=== PATIENT | female | born 1960 | race African-American/Black ===

== ENCOUNTER 2018-08-20 10:02 | Inpatient (IN) ==
[2018-08-20] MEDS ORDERED: ALBUTEROL/IPRATROPIUM 3 ML NEB RESP TX STA (11:05)
[2018-08-20 11:22] LABS: Basophils % 0.2 % (0.0-0.8); Hematocrit 32.2 VOL% (35.7-47.0); Hemoglobin 9.8 GM/DL (12.0-16.0); Immature Granulocytes % 2.5 %; Immature Granulocytes Absolute 0.26 #; Lymphocytes # 0.8 10*3/uL (1.4-4.0); Lymphocytes % 7.4 % (21.3-54.2); Mean Corpuscular HGB Conc 30.4 GM/DL (32-36); Mean Corpuscular Volume 76.5 FL (87-102); Monocytes % 1.1 % (1.7-12.7); Neutrophils % 88.8 % (38.7-73.9); Red Blood Count 4.21 MC/CUMM (3.8-5.5); Red Cell Distribution Width 18.3 % (9.3-17.3); White Blood Count 10.5 T/CUMM (4-12)
[2018-08-20 11:25] LABS: Platelet Count 203 T/CUMM (130-400)
[2018-08-20 11:40] LABS: Osmolality,Calculated 291.7 MOS/KG (273-304)
[2018-08-20 11:41] LABS: Hypochromasia 1+; Microcytosis 1+; Platelet Estimate Adequate
[2018-08-20] MEDS ORDERED: ONDANSETRON 4 MG/2 ML VIAL IV PRN (13:04)
[2018-08-20] MEDS ORDERED: ACETAMINOPHEN 325 MG TABLET PO PRN (13:04)
[2018-08-20] MEDS ORDERED: VANCOMYCIN INJ 1,750 MG in SODIUM CHLORIDE 0.9% 250 ML IV SCH (13:30)
[2018-08-20] MEDS: PANTOPRAZOLE 40 MG TABLET PO SCH (14:05)
[2018-08-20] MEDS ORDERED: CEFEPIME 1,000 MG VIAL ONE (14:06)
[2018-08-20] MEDS: CEFEPIME 1,000 MG in SYRINGE 1 EACH IV SCH (14:15)
[2018-08-20] MEDS ORDERED: VANCOMYCIN INJ 1,500 MG in SODIUM CHLORIDE 0.9% 500 ML IV PRN (14:46)
[2018-08-20] MEDS ORDERED: VANCOMYCIN INJ 2,000 MG in SODIUM CHLORIDE 0.9% 500 ML IV ONE (15:30)
[2018-08-20] MEDS: methylPREDNISolone SOD SUC 40 MG/1 ML VIAL IV SCH ×2 (15:44→22:35)
[2018-08-20] MEDS: HEPARIN 5,000 UNIT/1 ML VIAL SUBCUT SCH ×2 (15:50→22:30)
[2018-08-20] MEDS: ALBUTEROL/IPRATROPIUM 3 ML NEB RESP TX SCH (18:47)
[2018-08-21] MEDS: ALBUTEROL/IPRATROPIUM 3 ML NEB RESP TX SCH ×4 (00:10→19:09)
[2018-08-21] MEDS: methylPREDNISolone SOD SUC 40 MG/1 ML VIAL IV SCH ×3 (05:20→21:25)
[2018-08-21] MEDS: HEPARIN 5,000 UNIT/1 ML VIAL SUBCUT SCH ×2 (05:23→14:44)
[2018-08-21 05:54] LABS: Basophils % 0.2 % (0.0-0.8); Hematocrit 26.9 VOL% (35.7-47.0); Hemoglobin 8.5 GM/DL (12.0-16.0); Immature Granulocytes % 2.8 %; Immature Granulocytes Absolute 0.38 #; Lymphocytes % 7.2 % (21.3-54.2); Mean Corpuscular HGB Conc 31.6 GM/DL (32-36); Mean Corpuscular Volume 74.7 FL (87-102); Monocytes % 3.3 % (1.7-12.7); Neutrophils % 86.5 % (38.7-73.9); Platelet Count 173 T/CUMM (130-400); Red Cell Distribution Width 18.3 % (9.3-17.3); White Blood Count 13.8 T/CUMM (4-12)
[2018-08-21 06:11] LABS: Albumin 2.3 G/DL (3.4-5.0); Bilirubin,Total 0.8 MG/DL (0.2-1.0); Calcium 9.7 MG/DL (8.5-10.1); Osmolality,Calculated 296.7 MOS/KG (273-304); Risk Ratio 3.52; Total Protein 6.7 G/DL (6.4-8.3); VLDL CHOLESTEROL 14.2 MG/DL
[2018-08-21] MEDS: PANTOPRAZOLE 40 MG TABLET PO SCH (08:06)
[2018-08-21] MEDS: CEFEPIME 1,000 MG in SYRINGE 1 EACH IV SCH (14:44)
[2018-08-22] MEDS: ALBUTEROL/IPRATROPIUM 3 ML NEB RESP TX SCH ×4 (00:37→19:34)
[2018-08-22 04:42] LABS: Basophils % 0.1 % (0.0-0.8); Hematocrit 27.4 VOL% (35.7-47.0); Hemoglobin 8.8 GM/DL (12.0-16.0); Immature Granulocytes % 2.4 %; Immature Granulocytes Absolute 0.41 #; Lymphocytes # 0.6 10*3/uL (1.4-4.0); Lymphocytes % 3.8 % (21.3-54.2); Mean Corpuscular HGB Conc 32.1 GM/DL (32-36); Mean Corpuscular Volume 74.9 FL (87-102); Monocytes % 3.6 % (1.7-12.7); Neutrophils % 90.1 % (38.7-73.9); Platelet Count 189 T/CUMM (130-400); Red Blood Count 3.66 MC/CUMM (3.8-5.5); Red Cell Distribution Width 18.5 % (9.3-17.3); White Blood Count 16.9 T/CUMM (4-12)
[2018-08-22 04:58] LABS: Albumin 2.4 G/DL (3.4-5.0); Bilirubin,Total 0.5 MG/DL (0.2-1.0); Calcium 9.8 MG/DL (8.5-10.1); Osmolality,Calculated 299.8 MOS/KG (273-304); Total Protein 6.7 G/DL (6.4-8.3)
[2018-08-22] MEDS: methylPREDNISolone SOD SUC 40 MG/1 ML VIAL IV SCH ×2 (05:41→13:15)
[2018-08-22 05:42] LABS: Band Neutrophils 2 % (0-10); Hypochromasia 1+; Lymphocytes 5 % (20-55); Microcytosis 1+; Myelocytes 1 %; Ovalocytes Slight; Segmented Neutrophils 88 % (50-85); Target Cells Slight; Total Cells Counted 100
[2018-08-22 05:43] LABS: Platelet Estimate Adequate
[2018-08-22] MEDS: PANTOPRAZOLE 40 MG TABLET PO SCH ×2 (07:33→08:24)
[2018-08-22] MEDS ORDERED: SODIUM CHLORIDE 0.9% 1,000 ML IV PRN ×3 (09:36→09:48)
[2018-08-22 10:13] LABS: Total Protein 6.5 G/DL (6.4-8.3)
[2018-08-22] MEDS ORDERED: VANCOMYCIN INJ 1,000 MG in SODIUM CHLORIDE 0.9% 250 ML IV PRN (12:10)
[2018-08-22] MEDS: CEFEPIME 1,000 MG in SYRINGE 1 EACH IV SCH ×2 (13:15→13:43)
[2018-08-22] MEDS: IRON (CARBONYL)/VIT C/B12/FA TABLET PO SCH (13:16)
[2018-08-22] MEDS ORDERED: VANCOMYCIN INJ 1,000 MG in SODIUM CHLORIDE 0.9% 250 ML IV ONE (15:00)
[2018-08-23] MEDS: ALBUTEROL/IPRATROPIUM 3 ML NEB RESP TX SCH ×5 (00:27→23:53)
[2018-08-23 05:55] LABS: Basophils % 0.1 % (0.0-0.8); Hematocrit 28.8 VOL% (35.7-47.0); Hemoglobin 9.1 GM/DL (12.0-16.0); Immature Granulocytes % 1.9 %; Immature Granulocytes Absolute 0.34 #; Lymphocytes # 1.3 10*3/uL (1.4-4.0); Lymphocytes % 7.3 % (21.3-54.2); Mean Corpuscular HGB Conc 31.6 GM/DL (32-36); Mean Corpuscular Volume 75.2 FL (87-102); Monocytes % 9.9 % (1.7-12.7); NRBC # 0.02 10*3/uL; Neutrophils % 80.8 % (38.7-73.9); Platelet Count 237 T/CUMM (130-400); Red Blood Count 3.83 MC/CUMM (3.8-5.5); Red Cell Distribution Width 18.7 % (9.3-17.3); White Blood Count 17.8 T/CUMM (4-12)
[2018-08-23 06:34] LABS: Albumin 2.4 G/DL (3.4-5.0); Bilirubin,Total 0.7 MG/DL (0.2-1.0); Calcium 10.2 MG/DL (8.5-10.1); Osmolality,Calculated 301.5 MOS/KG (273-304); Total Protein 6.9 G/DL (6.4-8.3)
[2018-08-23 07:11] LABS: Hypochromasia 1+; Microcytosis 1+; Target Cells Slight
[2018-08-23 07:12] LABS: Ovalocytes Slight; Platelet Estimate Normal
[2018-08-23 07:27] LABS: Immunoglobulin A (Chem) 185 MG/DL (70-400); Immunoglobulin G (Chem) 1400 MG/DL (700-1600); Immunoglobulin M (Chem) 61 MG/DL (40-230); Total Protein (Chem) 6.5 G/DL (6.4-8.3)
[2018-08-23] MEDS ORDERED: BORTEZOMIB SUBCUT ONE ×2 (09:00→11:30)
[2018-08-23] MEDS ORDERED: EPOETIN ALFA 10,000 UNIT/1 ML VIAL SUBCUT SCH (09:00)
[2018-08-23 09:14] LABS: Albumin (SPE) 3.1 G/DL (3.2-5.3); Albumin (SPE) Rel % 48.4 %; Alpha 1 (SPE) 0.2 G/DL (0.1-0.4); Alpha 1 (SPE) Rel % 2.8 %; Alpha 2 (SPE) Rel % 15.3 %; Beta (SPE) Rel % 23.4 %; Gamma (SPE) 0.7 G/DL (0.7-1.7); Gamma (SPE) Rel % 10.1 %
[2018-08-23 09:15] LABS: Beta (SPE) 1.5 G/DL (0.5-1.1)
[2018-08-23] MEDS: PANTOPRAZOLE 40 MG TABLET PO SCH (09:37)
[2018-08-23] MEDS: predniSONE 20 MG TABLET PO SCH (09:37)
[2018-08-23] MEDS: IRON (CARBONYL)/VIT C/B12/FA TABLET PO SCH (09:37)
[2018-08-23 09:44] LABS: Immuno Free Light Chain Lambda 8.08 MG/DL (0.57-2.63); Immuno Free Light Chain Ratio 2.04 MG/DL (0.26-1.65)
[2018-08-23] MEDS ORDERED: POTASSIUM CHLORIDE 20 MEQ TABLET PO ONE (10:27)
[2018-08-24] MEDS: ALBUTEROL/IPRATROPIUM 3 ML NEB RESP TX SCH (07:18)
[2018-08-24 07:45] LABS: Basophils % 0.2 % (0.0-0.8); Eosinophils % 0.1 % (0.00-10.9); Hematocrit 33.7 VOL% (35.7-47.0); Hemoglobin 10.3 GM/DL (12.0-16.0); Immature Granulocytes % 1.9 %; Immature Granulocytes Absolute 0.33 #; Lymphocytes # 1.7 10*3/uL (1.4-4.0); Lymphocytes % 9.6 % (21.3-54.2); Mean Corpuscular HGB Conc 30.6 GM/DL (32-36); Mean Corpuscular Volume 75.7 FL (87-102); Monocytes % 12.9 % (1.7-12.7); NRBC # 0.02 10*3/uL; Neutrophils % 75.3 % (38.7-73.9); Platelet Count 241 T/CUMM (130-400); Red Blood Count 4.45 MC/CUMM (3.8-5.5); Red Cell Distribution Width 19.1 % (9.3-17.3); White Blood Count 17.5 T/CUMM (4-12)
[2018-08-24 07:59] LABS: Calcium 10.2 MG/DL (8.5-10.1)
[2018-08-24 08:02] LABS: Platelet Estimate Normal
[2018-08-24 08:03] LABS: Anisocytosis 1+; Macrocytosis 1+; Poikilocytosis Slight
[2018-08-24 08:04] LABS: Tear Drop Cells Few
[2018-08-24] MEDS: predniSONE 20 MG TABLET PO SCH (09:12)
[2018-08-24] MEDS: IRON (CARBONYL)/VIT C/B12/FA TABLET PO SCH (09:12)
[2018-08-24] MEDS: PANTOPRAZOLE 40 MG TABLET PO SCH (09:12)
[2018-08-24 11:09] VITALS: BP 113/71
== END 2018-08-24 12:10 | disposition home or self-care (01) | DRG 190 ==
LOC: N.ED 10:02 → SUATTDRO 12:10 → N.EDINP 12:10 → N.5E 14:27 → N.2E 08-23 13:55 → N.5E 08-23 13:58
PROVIDERS: ADMIT Internal Medicine; ATTEND Internal Medicine

== ENCOUNTER 2018-10-23 16:06 | Inpatient (IN) ==
[2018-10-23] MEDS ORDERED: KETOROLAC 30 MG/1 ML VIAL IV STA (16:33)
[2018-10-23] MEDS ORDERED: SODIUM CHLORIDE 0.9% 1,000 ML IV STA (16:33)
[2018-10-23] MEDS ORDERED: ONDANSETRON 4 MG/2 ML VIAL IV STA (16:33)
[2018-10-23] MEDS ORDERED: PIPERACILLIN/TAZOBACTAM 3,375 MG in SODIUM CHLORIDE 0.9% 100 ML IV STA (16:34)
[2018-10-23 17:52] LABS: Basophils % 0.2 % (0.0-0.8); Eosinophils % 0.1 % (0.00-10.9); Hematocrit 24.4 VOL% (35.7-47.0); Hemoglobin 7.4 GM/DL (12.0-16.0); Immature Granulocytes % 1.2 %; Immature Granulocytes Absolute 0.11 #; Lymphocytes # 2.1 10*3/uL (1.4-4.0); Lymphocytes % 22.7 % (21.3-54.2); Mean Corpuscular HGB Conc 30.3 GM/DL (32-36); Mean Corpuscular Volume 80.5 FL (87-102); Mean Platelet Volume 12.6 FL (9.6-12.0); Monocytes % 15.7 % (1.7-12.7); Neutrophils % 60.1 % (38.7-73.9); Platelet Count 172 T/CUMM (130-400); Red Blood Count 3.03 MC/CUMM (3.8-5.5); Red Cell Distribution Width 19.4 % (9.3-17.3); White Blood Count 9.3 T/CUMM (4-12)
[2018-10-23 18:03] LABS: PT Patient Result 10.6 SECS; Partial Thromboplastin Time 22.4 SECS (0-40)
[2018-10-23 18:13] LABS: Lymphocytes 27 % (20-55); Microcytosis 1+; Platelet Estimate Adequate; Segmented Neutrophils 63 % (50-85); Total Cells Counted 100
[2018-10-23 18:14] LABS: Hypochromasia Slight
[2018-10-23 18:21] LABS: Alanine Aminotransferase 20 U/L (13-56); Albumin 2.5 G/DL (3.4-5.0); Alkaline Phosphatase 50 U/L (45-117); Amylase 190 U/L (25-115); Aspartate Amino Transferase 26 U/L (0-37); Blood Urea Nitrogen 38 MG/DL (7-18); Calcium 8.5 MG/DL (8.5-10.1); Glucose 99 MG/DL (74-106); Osmolality,Calculated 289.3 MOS/KG (273-304); Total Protein 6.2 G/DL (6.4-8.3)
[2018-10-23] MEDS ORDERED: POTASSIUM CHLORIDE 20 MEQ TABLET PO STA (18:57)
[2018-10-23] MEDS ORDERED: ONDANSETRON 4 MG/2 ML VIAL IV PRN (19:42)
[2018-10-23] MEDS ORDERED: ACETAMINOPHEN 325 MG TABLET PO PRN (19:42)
[2018-10-23] MEDS ORDERED: ALBUTEROL/IPRATROPIUM 3 ML NEB RESP TX PRN (19:53)
[2018-10-23] MEDS ORDERED: POTASSIUM CHLORIDE 20 MEQ TABLET PO ONE (20:00)
[2018-10-23] MEDS ORDERED: SODIUM CHLORIDE 0.9% 1,000 ML IV PRN (20:03)
[2018-10-24 03:25] LABS: Osmolality,Calculated 290.3 MOS/KG (273-304); Risk Ratio 4.24; Thyroid Stimulating Hormone 2.77 uIU/ml (0.358-3.74)
[2018-10-24 05:46] LABS: Basophils % 0.3 % (0.0-0.8); Eosinophils % 0.3 % (0.00-10.9); Hematocrit 27.9 VOL% (35.7-47.0); Hemoglobin 8.5 GM/DL (12.0-16.0); Immature Granulocytes % 1.3 %; Immature Granulocytes Absolute 0.12 #; Lymphocytes # 2.7 10*3/uL (1.4-4.0); Lymphocytes % 29.6 % (21.3-54.2); Mean Corpuscular HGB Conc 30.5 GM/DL (32-36); Mean Corpuscular Volume 81.3 FL (87-102); Mean Platelet Volume 12.2 FL (9.6-12.0); Monocytes % 14.7 % (1.7-12.7); Neutrophils % 53.8 % (38.7-73.9); Platelet Count 157 T/CUMM (130-400); Red Blood Count 3.43 MC/CUMM (3.8-5.5); Red Cell Distribution Width 18.6 % (9.3-17.3)
[2018-10-24] MEDS: PIPERACILLIN/TAZOBACTAM 3,375 MG in SODIUM CHLORIDE 0.9% 100 ML IV SCH ×2 (06:07→20:52)
[2018-10-24] MEDS: PANTOPRAZOLE 40 MG TABLET PO SCH (09:08)
[2018-10-24 09:22] LABS: Albumin 2.1 G/DL (3.4-5.0); Bilirubin,Direct 0.12 MG/DL (0.0-0.20); Bilirubin,Indirect 0.4 MG/DL (0.0-1.0); Bilirubin,Total 0.5 MG/DL (0.2-1.0); Total Protein 6.1 G/DL (6.4-8.3)
[2018-10-24] MEDS ORDERED: HEPARIN 5,000 UNIT/1 ML VIAL ONE (14:06)
[2018-10-24] MEDS ORDERED: BUPIVACAINE MPF 0.25% /EPI 30 ML VIAL ONE (14:06)
[2018-10-24] MEDS ORDERED: TISSUE ADHESIVE 1 EACH APPLICATOR TOP ONE (14:06)
[2018-10-24] MEDS ORDERED: LIDOCAINE 1% 20 ML VIAL ONE (14:07)
[2018-10-24] MEDS ORDERED: ONDANSETRON 4 MG/2 ML VIAL ONE (18:25)
[2018-10-24] MEDS ORDERED: PROPOFOL 200 MG/20 ML VIAL IV ONE (18:25)
[2018-10-24] MEDS ORDERED: ETOMIDATE 40 MG/20 ML VIAL IV ONE (18:25)
[2018-10-24] MEDS ORDERED: SEVOFLURANE 1 UNIT/15 MINUTE INH ONE (18:25)
[2018-10-24] MEDS ORDERED: GLYCOPYRROLATE 0.4 MG/2 ML VIAL ONE (18:25)
[2018-10-24] MEDS ORDERED: fentaNYL 100 MCG/2 ML VIAL ONE (18:25)
[2018-10-24] MEDS ORDERED: ROCURONIUM 100 MG/10 ML VIAL IV ONE (18:26)
[2018-10-24] MEDS ORDERED: NEOSTIGMINE 10 MG/10 ML VIAL ONE (18:26)
[2018-10-24] MEDS: HYDROmorphone 2 MG/1 ML VIAL IV PRN (19:04)
[2018-10-25 05:34] LABS: Basophils # 0.1 10*3/uL (0.0-0.2); Basophils % 0.6 % (0.0-0.8); Eosinophils % 0.2 % (0.00-10.9); Hematocrit 26.2 VOL% (35.7-47.0); Immature Granulocytes % 1.3 %; Immature Granulocytes Absolute 0.11 #; Lymphocytes # 1.9 10*3/uL (1.4-4.0); Lymphocytes % 22.1 % (21.3-54.2); Mean Corpuscular HGB Conc 30.5 GM/DL (32-36); Mean Corpuscular Volume 81.6 FL (87-102); Mean Platelet Volume 12.6 FL (9.6-12.0); Monocytes % 14.3 % (1.7-12.7); Neutrophils % 61.5 % (38.7-73.9); Platelet Count 151 T/CUMM (130-400); Red Blood Count 3.21 MC/CUMM (3.8-5.5); Red Cell Distribution Width 18.6 % (9.3-17.3); White Blood Count 8.4 T/CUMM (4-12)
[2018-10-25 05:57] LABS: Bilirubin,Total 0.7 MG/DL (0.2-1.0); Calcium 8.2 MG/DL (8.5-10.1); Osmolality,Calculated 293.1 MOS/KG (273-304); Total Protein 5.9 G/DL (6.4-8.3)
[2018-10-25] MEDS ORDERED: POTASSIUM CHLORIDE 20 MEQ TABLET PO ONE (07:26)
[2018-10-25] MEDS: HYDROmorphone 2 MG/1 ML VIAL IV PRN (08:16)
[2018-10-25] MEDS: PANTOPRAZOLE 40 MG TABLET PO SCH (08:20)
[2018-10-25] MEDS: PIPERACILLIN/TAZOBACTAM 3,375 MG in SODIUM CHLORIDE 0.9% 100 ML IV SCH ×2 (08:23→21:08)
[2018-10-26] MEDS: HYDROmorphone 2 MG/1 ML VIAL IV PRN ×2 (02:52→11:22)
[2018-10-26] MEDS: PANTOPRAZOLE 40 MG TABLET PO SCH (08:38)
[2018-10-26] MEDS: PIPERACILLIN/TAZOBACTAM 3,375 MG in SODIUM CHLORIDE 0.9% 100 ML IV SCH ×2 (08:44→21:14)
[2018-10-27] MEDS: PANTOPRAZOLE 40 MG TABLET PO SCH (10:27)
[2018-10-27] MEDS: PIPERACILLIN/TAZOBACTAM 3,375 MG in SODIUM CHLORIDE 0.9% 100 ML IV SCH (10:29)
[2018-10-27 17:04] VITALS: BP 124/67
== END 2018-10-27 17:50 | disposition home or self-care (01) | DRG 417 ==
LOC: EDBD → EDUNIT# → N.ED 16:06 → N.EDINP 19:42 → N.3E 20:34
PROVIDERS: ADMIT Internal Medicine Cardiovascular Disease; ATTEND Internal Medicine Cardiovascular Disease
PROC: LAPCHOL (2018-10-24 16:35)

== ENCOUNTER 2018-11-07 14:38 | Inpatient (IN) ==
[~2018-11-07 14:38] MED LIST: LIDOCAINE 2% 5 ML VIAL ONE; PHENYLEPHRINE 1 MG/10 ML SYRINGE IV ONE; PROPOFOL 200 MG/20 ML VIAL IV ONE
[2018-11-07] MEDS ORDERED: SODIUM CHLORIDE 0.9% 1,000 ML IV STA (15:35)
[2018-11-07 16:04] LABS: Alanine Aminotransferase 17 U/L (13-56); Albumin 2.3 G/DL (3.4-5.0); Alkaline Phosphatase 85 U/L (45-117); Aspartate Amino Transferase 23 U/L (0-37); Blood Urea Nitrogen 23 MG/DL (7-18); Calcium 9.5 MG/DL (8.5-10.1); Glucose 209 MG/DL (74-106); Osmolality,Calculated 284.7 MOS/KG (273-304); Total Protein 8.2 G/DL (6.4-8.3); Troponin I 0.159 NG/ML (0.00-0.045)
[2018-11-07 16:08] LABS: Basophils # 0.1 10*3/uL (0.0-0.2); Basophils % 0.5 % (0.0-0.8); Eosinophils % 0.3 % (0.00-10.9); Hematocrit 32.6 VOL% (35.7-47.0); Hemoglobin 9.7 GM/DL (12.0-16.0); Immature Granulocytes % 0.6 %; Immature Granulocytes Absolute 0.08 #; Lymphocytes # 3.4 10*3/uL (1.4-4.0); Lymphocytes % 23.7 % (21.3-54.2); Mean Corpuscular HGB Conc 29.8 GM/DL (32-36); Mean Corpuscular Volume 82.5 FL (87-102); Mean Platelet Volume 11.5 FL (9.6-12.0); Monocytes % 3.4 % (1.7-12.7); NRBC # 0.03 10*3/uL; Neutrophils % 71.5 % (38.7-73.9); Platelet Count 417 T/CUMM (130-400); Red Blood Count 3.95 MC/CUMM (3.8-5.5); Red Cell Distribution Width 17.9 % (9.3-17.3); White Blood Count 14.5 T/CUMM (4-12)
[2018-11-07 16:21] LABS: PT Patient Result 11.3 SECS (9.6-12.2)
[2018-11-07] MEDS ORDERED: PIPERACILLIN/TAZOBACTAM 3,375 MG in SODIUM CHLORIDE 0.9% 100 ML IV STA ×2 (16:30→16:34)
[2018-11-07] MEDS ORDERED: NOREPINEPHRINE 8 MG in SODIUM CHLORIDE 0.9% 242 ML IV PRN (16:30)
[2018-11-07] MEDS ORDERED: NOREPINEPHRINE 4 MG/4 ML VIAL IV ONE ×2 (16:31→16:34)
[2018-11-07] MEDS ORDERED: SODIUM CHLORIDE 0.9% 2,700 ML IV ONE (17:07)
[2018-11-07] MEDS ORDERED: MORPHINE 4 MG/1 ML VIAL IV PRN (17:12)
[2018-11-07] MEDS ORDERED: DOPamine 800 MG/250 ML PREMIX IV PRN (17:12)
[2018-11-07] MEDS ORDERED: ALBUTEROL/IPRATROPIUM 3 ML NEB RESP TX PRN (17:12)
[2018-11-07] MEDS ORDERED: ONDANSETRON 4 MG/2 ML VIAL IV PRN (17:12)
[2018-11-07] MEDS ORDERED: ALBUTEROL 2.5 MG/3 ML NEB RESP TX PRN (17:12)
[2018-11-07 17:30] LABS: ABG Base Excess -4.2 MMOL/L (-2.5-2.5); ABG Oxygen Saturation 98.6 % (95-100); ABG PCO2 35.2 MM HG (35-48); ABG PH 7.373 (7.35-7.45); ABG TCO2 18.8 MMOL/L (23-27); Allen Test Positive
[2018-11-07] MEDS ORDERED: SODIUM CHLORIDE 0.9% 1,000 ML IV SCH (17:30)
[2018-11-07] MEDS ORDERED: VANCOMYCIN INJ 2,250 MG in SODIUM CHLORIDE 0.9% 500 ML IV ONE (18:00)
[2018-11-07] MEDS ORDERED: VANCOMYCIN INJ 750 MG in SODIUM CHLORIDE 0.9% 250 ML IV PRN (18:00)
[2018-11-07] MEDS: POTASSIUM CHLORIDE 20 MEQ/15 ML UDCUP PO SCH ×2 (19:08→22:11)
[2018-11-07] MEDS: CALCITRIOL 0.25 MCG CAPSULE PO SCH (20:47)
[2018-11-07] MEDS: DEXAMETHASONE 4 MG/1 ML VIAL IV SCH (20:48)
[2018-11-07] MEDS ORDERED: POMALYST 3 MG PO SCH (21:00)
[2018-11-07] MEDS ORDERED: FAMOTIDINE 20 MG/2 ML VIAL IV SCH (21:00)
[2018-11-08] MEDS: DEXAMETHASONE 4 MG/1 ML VIAL IV SCH ×3 (02:11→21:42)
[2018-11-08] MEDS: POTASSIUM CHLORIDE 20 MEQ/15 ML UDCUP PO SCH (02:11)
[2018-11-08 03:25] LABS: Basophils % 0.2 % (0.0-0.8); Hematocrit 25.7 VOL% (35.7-47.0); Hemoglobin 7.8 GM/DL (12.0-16.0); Immature Granulocytes % 0.6 %; Immature Granulocytes Absolute 0.12 #; Lymphocytes # 1.3 10*3/uL (1.4-4.0); Lymphocytes % 6.8 % (21.3-54.2); Mean Corpuscular HGB Conc 30.4 GM/DL (32-36); Mean Corpuscular Volume 81.1 FL (87-102); Mean Platelet Volume 11.7 FL (9.6-12.0); Monocytes % 1.4 % (1.7-12.7); Platelet Count 286 T/CUMM (130-400); Red Blood Count 3.17 MC/CUMM (3.8-5.5); Red Cell Distribution Width 17.9 % (9.3-17.3); White Blood Count 18.5 T/CUMM (4-12)
[2018-11-08 03:59] LABS: Albumin 1.8 G/DL (3.4-5.0); Bilirubin,Total 0.5 MG/DL (0.2-1.0); Calcium 7.7 MG/DL (8.5-10.1); Osmolality,Calculated 284.3 MOS/KG (273-304); Risk Ratio 4.79; Thyroid Stimulating Hormone 3.63 uIU/ml (0.358-3.74); Total Protein 6.2 G/DL (6.4-8.3)
[2018-11-08 04:16] LABS: Lymphocytes 7 % (20-55); Platelet Estimate Normal; Segmented Neutrophils 93 % (50-85); Total Cells Counted 100
[2018-11-08 04:29] LABS: ABG Base Excess -4.5 MMOL/L (-2.5-2.5); ABG HCO3 20.6 MMOL/L (20-26); ABG Oxygen Saturation 95.7 % (95-100); ABG PCO2 37.4 MM HG (35-48); ABG PH 7.358 (7.35-7.45); ABG PO2 85.8 MM HG (80-95); ABG TCO2 21.7 MMOL/L (23-27); Allen Test Positive
[2018-11-08] MEDS: PANTOPRAZOLE 40 MG TABLET PO SCH (12:10)
[2018-11-08 21:04] LABS: Neutrophils,Peritoneal Fluid 42 %; RBC,Peritoneal Fluid < 1 T/CUMM
[2018-11-08] MEDS: CALCITRIOL 0.25 MCG CAPSULE PO SCH (21:42)
[2018-11-09 05:28] LABS: Basophils % 0.1 % (0.0-0.8); Hematocrit 23.4 VOL% (35.7-47.0); Hemoglobin 7.3 GM/DL (12.0-16.0); Immature Granulocytes % 0.5 %; Immature Granulocytes Absolute 0.06 #; Lymphocytes # 1.4 10*3/uL (1.4-4.0); Lymphocytes % 11.1 % (21.3-54.2); Mean Corpuscular HGB Conc 31.2 GM/DL (32-36); Mean Corpuscular Volume 79.9 FL (87-102); Mean Platelet Volume 11.6 FL (9.6-12.0); Monocytes % 4.5 % (1.7-12.7); Neutrophils % 83.8 % (38.7-73.9); Platelet Count 224 T/CUMM (130-400); Red Blood Count 2.93 MC/CUMM (3.8-5.5); Red Cell Distribution Width 17.6 % (9.3-17.3); White Blood Count 12.8 T/CUMM (4-12)
[2018-11-09 05:57] LABS: Albumin 1.8 G/DL (3.4-5.0); Bilirubin,Total 0.6 MG/DL (0.2-1.0); Calcium 8.2 MG/DL (8.5-10.1); Total Protein 5.9 G/DL (6.4-8.3)
[2018-11-09] MEDS: PANTOPRAZOLE 40 MG TABLET PO SCH (08:38)
[2018-11-09] MEDS: DEXAMETHASONE 4 MG/1 ML VIAL IV SCH ×2 (08:38→21:23)
[2018-11-09] MEDS: CALCITRIOL 0.25 MCG CAPSULE PO SCH (21:23)
[2018-11-10 05:27] LABS: Basophils % 0.1 % (0.0-0.8); Hemoglobin 8.6 GM/DL (12.0-16.0); Immature Granulocytes % 0.8 %; Immature Granulocytes Absolute 0.07 #; Lymphocytes # 0.9 10*3/uL (1.4-4.0); Lymphocytes % 10.3 % (21.3-54.2); Mean Corpuscular HGB Conc 31.9 GM/DL (32-36); Mean Corpuscular Volume 78.3 FL (87-102); Mean Platelet Volume 13.2 FL (9.6-12.0); Monocytes % 4.2 % (1.7-12.7); NRBC # 0.02 10*3/uL; Neutrophils % 84.6 % (38.7-73.9); Platelet Count 173 T/CUMM (130-400); Red Blood Count 3.45 MC/CUMM (3.8-5.5); Red Cell Distribution Width 17.6 % (9.3-17.3); White Blood Count 8.9 T/CUMM (4-12)
[2018-11-10 05:43] LABS: Albumin 1.8 G/DL (3.4-5.0); Bilirubin,Total 0.4 MG/DL (0.2-1.0); Calcium 8.1 MG/DL (8.5-10.1); Total Protein 5.8 G/DL (6.4-8.3)
[2018-11-10] MEDS ORDERED: MAGNESIUM SULF RIDER 4 GM in PREMIX 1 EACH IV PRN (08:02)
[2018-11-10] MEDS ORDERED: MAGNESIUM SULF RIDER 2 GM in PREMIX 1 EACH IV PRN (08:02)
[2018-11-10] MEDS: PANTOPRAZOLE 40 MG TABLET PO SCH (08:54)
[2018-11-10] MEDS: DEXAMETHASONE 4 MG/1 ML VIAL IV SCH (08:54)
[2018-11-10 12:18] VITALS: BP 114/78
== END 2018-11-10 12:58 | disposition home or self-care (01) | DRG 871 ==
LOC: N.ED 14:38 → SUATTDRO 17:12 → N.EDINP 17:12 → N.CC 18:03 → N.5E 11-08 14:07
PROVIDERS: ADMIT Internal Medicine; ATTEND Internal Medicine

== ENCOUNTER 2018-12-31 09:22 | Inpatient (IN) ==
[2018-12-31 10:02] LABS: Eosinophils % 0.1 % (0.00-10.9); Hematocrit 27.4 VOL% (35.7-47.0); Immature Granulocytes % 0.5 %; Immature Granulocytes Absolute 0.04 #; Lymphocytes # 1.4 10*3/uL (1.4-4.0); Lymphocytes % 16.4 % (21.3-54.2); Mean Corpuscular HGB Conc 32.8 GM/DL (32-36); Mean Corpuscular Volume 79.4 FL (87-102); Mean Platelet Volume 13.1 FL (9.6-12.0); Platelet Count 257 T/CUMM (130-400); Red Blood Count 3.45 MC/CUMM (3.8-5.5); White Blood Count 8.5 T/CUMM (4-12)
[2018-12-31 10:31] LABS: Alanine Aminotransferase 30 U/L (13-56); Albumin 2.3 G/DL (3.4-5.0); Alkaline Phosphatase 45 U/L (45-117); Aspartate Amino Transferase 32 U/L (0-37); Blood Urea Nitrogen 24 MG/DL (7-18); Calcium 8.9 MG/DL (8.5-10.1); Estimated Glom Filtration Rate 3 ML/MIN; Glucose 119 MG/DL (74-106); Osmolality,Calculated 272.2 MOS/KG (273-304); Total Protein 6.4 G/DL (6.4-8.3)
[2018-12-31] MEDS ORDERED: ALUM/MAG/SIMETH/LIDO VISC 1:1 30 ML BOTTLE PO ONE (11:06)
[2018-12-31] MEDS ORDERED: ALUM/MAG/SIMETH/LIDO VISC 1:1 30 ML BOTTLE PO STA (11:09)
[2018-12-31 14:17] LABS: Thyroid Stimulating Hormone 2.95 uIU/ml (0.358-3.74)
[2018-12-31] MEDS: SODIUM CHLORIDE 0.9% 1,000 ML IV SCH (14:28)
[2018-12-31] MEDS: POTASSIUM CHLORIDE RIDER 10 MEQ in PREMIX 1 EACH IV PRN ×5 (14:28→21:42)
[2018-12-31] MEDS ORDERED: MAGNESIUM SULF RIDER 4 GM in PREMIX 1 EACH IV PRN (14:54)
[2018-12-31] MEDS: MAGNESIUM SULF RIDER 2 GM in PREMIX 1 EACH IV PRN ×2 (16:52→17:52)
[2018-12-31] MEDS: ACETAMINOPHEN 325 MG TABLET PO PRN (18:39)
[2018-12-31 19:54] LABS: RBC,Peritoneal Fluid 2323 T/CUMM
[2018-12-31 20:45] LABS: Neutrophils,Peritoneal Fluid 85 %
[2018-12-31] MEDS: PANTOPRAZOLE 40 MG VIAL IV SCH (21:37)
[2019-01-01] MEDS: ACETAMINOPHEN 325 MG TABLET PO PRN ×2 (01:20→06:20)
[2019-01-01] MEDS: SODIUM CHLORIDE 0.9% 1,000 ML IV SCH ×2 (02:31→17:47)
[2019-01-01] MEDS: ONDANSETRON 4 MG/2 ML VIAL IV PRN ×2 (02:34→19:31)
[2019-01-01 06:27] LABS: Eosinophils % 0.2 % (0.00-10.9); Hematocrit 28.6 VOL% (35.7-47.0); Hemoglobin 8.6 GM/DL (12.0-16.0); Immature Granulocytes % 0.7 %; Immature Granulocytes Absolute 0.03 #; Lymphocytes # 1.1 10*3/uL (1.4-4.0); Lymphocytes % 27.3 % (21.3-54.2); Mean Corpuscular HGB Conc 30.1 GM/DL (32-36); Mean Corpuscular Volume 84.9 FL (87-102); Mean Platelet Volume 13.3 FL (9.6-12.0); Monocytes % 15.8 % (1.7-12.7); Platelet Count 154 T/CUMM (130-400); Red Blood Count 3.37 MC/CUMM (3.8-5.5); White Blood Count 4.1 T/CUMM (4-12)
[2019-01-01 06:34] LABS: Albumin 1.7 G/DL (3.4-5.0); Bilirubin,Total 0.7 MG/DL (0.2-1.0); Calcium 9.1 MG/DL (8.5-10.1); Osmolality,Calculated 273.2 MOS/KG (273-304); Total Protein 5.8 G/DL (6.4-8.3)
[2019-01-01 06:59] LABS: Band Neutrophils 1 % (0-10); Hypochromasia Slight; Lymphocytes 29 % (20-55); Ovalocytes Slight; Platelet Estimate Normal; Segmented Neutrophils 61 % (50-85); Total Cells Counted 100
[2019-01-01] MEDS: PANTOPRAZOLE 40 MG VIAL IV SCH ×2 (09:50→20:52)
[2019-01-01] MEDS: POTASSIUM CHLORIDE RIDER 10 MEQ in PREMIX 1 EACH IV PRN ×4 (11:25→22:51)
[2019-01-01] MEDS ORDERED: ceFAZolin 1,000 MG VIAL INTRAPERIT ONE ×2 (23:00)
[2019-01-01] MEDS ORDERED: GENTAMICIN 80 MG/2 ML VIAL INTRAPERIT ONE ×2 (23:00)
[2019-01-02] MEDS: POTASSIUM CHLORIDE RIDER 10 MEQ in PREMIX 1 EACH IV PRN ×5 (01:14→23:23)
[2019-01-02 05:20] LABS: Eosinophils # 0.1 10*3/uL (0.0-0.87); Eosinophils % 3.5 % (0.00-10.9); Hematocrit 23.4 VOL% (35.7-47.0); Hemoglobin 7.5 GM/DL (12.0-16.0); Immature Granulocytes % 0.9 %; Immature Granulocytes Absolute 0.03 #; Lymphocytes # 0.7 10*3/uL (1.4-4.0); Lymphocytes % 21.8 % (21.3-54.2); Mean Corpuscular HGB Conc 32.1 GM/DL (32-36); Mean Corpuscular Volume 78.5 FL (87-102); Mean Platelet Volume 11.8 FL (9.6-12.0); Monocytes % 24.1 % (1.7-12.7); Neutrophils % 49.7 % (38.7-73.9); Platelet Count 167 T/CUMM (130-400); Red Blood Count 2.98 MC/CUMM (3.8-5.5); Red Cell Distribution Width 19.4 % (9.3-17.3); White Blood Count 3.4 T/CUMM (4-12)
[2019-01-02 05:44] LABS: Band Neutrophils 4 % (0-10); Eosinophils 4 % (0-10); Hypochromasia 2+; Lymphocytes 21 % (20-55); Microcytosis 1+; Segmented Neutrophils 48 % (50-85); Total Cells Counted 100
[2019-01-02 05:45] LABS: Anisocytosis 1+; Atypical Lymphocytes Few; Ovalocytes Slight; Polychromasia Slight; Target Cells Slight
[2019-01-02 05:46] LABS: Platelet Estimate Adequate
[2019-01-02 06:00] LABS: Albumin 1.7 G/DL (3.4-5.0); Bilirubin,Total 1.2 MG/DL (0.2-1.0); Calcium 9.1 MG/DL (8.5-10.1); Osmolality,Calculated 275.1 MOS/KG (273-304); Total Protein 5.4 G/DL (6.4-8.3)
[2019-01-02] MEDS: SODIUM CHLORIDE 0.9% 1,000 ML IV SCH (07:21)
[2019-01-02] MEDS: PANTOPRAZOLE 40 MG VIAL IV SCH ×2 (09:18→20:04)
[2019-01-02 15:34] LABS: Neutrophils,Peritoneal Fluid 84 %
[2019-01-02 15:35] LABS: RBC,Peritoneal Fluid 59 T/CUMM
[2019-01-02] MEDS ORDERED: GENTAMICIN 80 MG/2 ML VIAL INTRAPERIT ONE (23:00)
[2019-01-02] MEDS ORDERED: ceFAZolin 1,000 MG VIAL INTRAPERIT ONE (23:00)
[2019-01-02] MEDS: ACETAMINOPHEN 325 MG TABLET PO PRN (23:21)
[2019-01-03 05:07] LABS: Eosinophils # 0.1 10*3/uL (0.0-0.87); Eosinophils % 2.4 % (0.00-10.9); Hematocrit 23.2 VOL% (35.7-47.0); Hemoglobin 7.2 GM/DL (12.0-16.0); Lymphocytes # 0.7 10*3/uL (1.4-4.0); Lymphocytes % 19.7 % (21.3-54.2); Mean Corpuscular Volume 79.7 FL (87-102); Mean Platelet Volume 12.6 FL (9.6-12.0); Monocytes % 30.8 % (1.7-12.7); Neutrophils % 47.1 % (38.7-73.9); Platelet Count 177 T/CUMM (130-400); Red Blood Count 2.91 MC/CUMM (3.8-5.5); Red Cell Distribution Width 19.1 % (9.3-17.3); White Blood Count 3.7 T/CUMM (4-12)
[2019-01-03 05:25] LABS: Alanine Aminotransferase < 6 U/L (13-56); Albumin 1.5 G/DL (3.4-5.0); Alkaline Phosphatase 46 U/L (45-117); Aspartate Amino Transferase 7 U/L (0-37); Blood Urea Nitrogen 31 MG/DL (7-18); Calcium 8.6 MG/DL (8.5-10.1); Estimated Glom Filtration Rate 4 ML/MIN; Glucose 118 MG/DL (74-106); Osmolality,Calculated 273.4 MOS/KG (273-304); Total Protein 5.3 G/DL (6.4-8.3)
[2019-01-03 05:48] LABS: Band Neutrophils 13 % (0-10); Eosinophils 2 % (0-10); Lymphocytes 23 % (20-55); Metamyelocytes 1 %; Nucleated Red Blood Cells 2 (0-5); Platelet Estimate Normal; Segmented Neutrophils 28 % (50-85); Total Cells Counted 100
[2019-01-03] MEDS: PANTOPRAZOLE 40 MG VIAL IV SCH ×2 (09:47→21:12)
[2019-01-03] MEDS: HEPARIN 1,000 UNIT/1 ML VIAL INTRAPERIT SCH ×2 (12:30→18:30)
[2019-01-03] MEDS: ceFAZolin 1,000 MG VIAL INTRAPERIT SCH ×2 (12:30→18:30)
[2019-01-03 17:31] LABS: Hematocrit 22.7 VOL% (35.7-47.0); Hemoglobin 7.3 GM/DL (12.0-16.0)
[2019-01-03] MEDS: POTASSIUM CHLORIDE 10 MEQ TABLET PO SCH (21:13)
[2019-01-03 22:34] LABS: Hemoglobin 7.3 GM/DL (12.0-16.0)
[2019-01-04] MEDS: HEPARIN 1,000 UNIT/1 ML VIAL INTRAPERIT SCH ×4 (00:25→18:34)
[2019-01-04] MEDS: ceFAZolin 1,000 MG VIAL INTRAPERIT SCH ×4 (00:25→18:34)
[2019-01-04 05:07] LABS: Hematocrit 22.1 VOL% (35.7-47.0); Hemoglobin 7.1 GM/DL (12.0-16.0)
[2019-01-04 08:42] LABS: Basophils % 0.2 % (0.0-0.8); Eosinophils # 0.4 10*3/uL (0.0-0.87); Eosinophils % 7.5 % (0.00-10.9); Hematocrit 21.3 VOL% (35.7-47.0); Hemoglobin 6.9 GM/DL (12.0-16.0); Immature Granulocytes % 0.6 %; Immature Granulocytes Absolute 0.03 #; Lymphocytes # 1.1 10*3/uL (1.4-4.0); Lymphocytes % 23.1 % (21.3-54.2); Mean Corpuscular HGB Conc 32.4 GM/DL (32-36); Mean Corpuscular Volume 76.6 FL (87-102); Mean Platelet Volume 11.9 FL (9.6-12.0); Monocytes % 28.3 % (1.7-12.7); Neutrophils % 40.3 % (38.7-73.9); Platelet Count 170 T/CUMM (130-400); Red Blood Count 2.78 MC/CUMM (3.8-5.5); Red Cell Distribution Width 18.6 % (9.3-17.3); White Blood Count 4.8 T/CUMM (4-12)
[2019-01-04 09:04] LABS: Band Neutrophils 1 % (0-10); Eosinophils 8 % (0-10); Hypochromasia 1+; Lymphocytes 25 % (20-55); Macrocytosis Slight; Ovalocytes Slight; Platelet Estimate Adequate; Segmented Neutrophils 50 % (50-85); Total Cells Counted 100
[2019-01-04 09:05] LABS: Polychromasia Slight
[2019-01-04] MEDS: POTASSIUM CHLORIDE 10 MEQ TABLET PO SCH ×2 (09:13→21:59)
[2019-01-04] MEDS: PANTOPRAZOLE 40 MG VIAL IV SCH ×2 (09:13→21:59)
[2019-01-04 09:17] LABS: Calcium 8.6 MG/DL (8.5-10.1); Osmolality,Calculated 274.4 MOS/KG (273-304)
[2019-01-04 16:56] LABS: Neutrophils,Peritoneal Fluid 84 %; RBC,Peritoneal Fluid 1072 T/CUMM
[2019-01-05] MEDS: ceFAZolin 1,000 MG VIAL INTRAPERIT SCH ×4 (06:12→18:30)
[2019-01-05] MEDS: HEPARIN 1,000 UNIT/1 ML VIAL INTRAPERIT SCH ×4 (06:12→18:30)
[2019-01-05 07:57] LABS: Basophils % 0.4 % (0.0-0.8); Eosinophils # 0.2 10*3/uL (0.0-0.87); Eosinophils % 3.8 % (0.00-10.9); Hematocrit 23.9 VOL% (35.7-47.0); Hemoglobin 7.7 GM/DL (12.0-16.0); Immature Granulocytes % 1.5 %; Immature Granulocytes Absolute 0.07 #; Lymphocytes # 1.2 10*3/uL (1.4-4.0); Lymphocytes % 26.1 % (21.3-54.2); Mean Corpuscular HGB Conc 32.2 GM/DL (32-36); Mean Corpuscular Volume 76.6 FL (87-102); Mean Platelet Volume 11.9 FL (9.6-12.0); Monocytes % 37.6 % (1.7-12.7); Neutrophils % 30.6 % (38.7-73.9); Platelet Count 212 T/CUMM (130-400); Red Blood Count 3.12 MC/CUMM (3.8-5.5); Red Cell Distribution Width 18.3 % (9.3-17.3); White Blood Count 4.5 T/CUMM (4-12)
[2019-01-05 08:24] LABS: Calcium 8.8 MG/DL (8.5-10.1); Osmolality,Calculated 269.8 MOS/KG (273-304)
[2019-01-05] MEDS: POTASSIUM CHLORIDE 10 MEQ TABLET PO SCH ×2 (08:28→21:50)
[2019-01-05] MEDS: PANTOPRAZOLE 40 MG VIAL IV SCH ×2 (08:28→21:49)
[2019-01-05 08:54] LABS: Band Neutrophils 1 % (0-10); Eosinophils 11 % (0-10); Hypochromasia 1+; Lymphocytes 20 % (20-55); Macrocytosis Slight; Ovalocytes Slight; Platelet Estimate Adequate; Segmented Neutrophils 37 % (50-85); Total Cells Counted 100
[2019-01-06] MEDS: ceFAZolin 1,000 MG VIAL INTRAPERIT SCH ×2 (00:10→06:10)
[2019-01-06] MEDS: HEPARIN 1,000 UNIT/1 ML VIAL INTRAPERIT SCH ×2 (00:10→06:10)
[2019-01-06 05:07] LABS: Basophils % 0.5 % (0.0-0.8); Eosinophils # 0.5 10*3/uL (0.0-0.87); Eosinophils % 8.3 % (0.00-10.9); Hematocrit 23.4 VOL% (35.7-47.0); Hemoglobin 7.6 GM/DL (12.0-16.0); Immature Granulocytes % 0.7 %; Immature Granulocytes Absolute 0.04 #; Lymphocytes # 1.5 10*3/uL (1.4-4.0); Lymphocytes % 25.7 % (21.3-54.2); Mean Corpuscular HGB Conc 32.5 GM/DL (32-36); Mean Platelet Volume 11.7 FL (9.6-12.0); Monocytes % 35.7 % (1.7-12.7); Neutrophils % 29.1 % (38.7-73.9); Platelet Count 219 T/CUMM (130-400); Red Blood Count 3.08 MC/CUMM (3.8-5.5); Red Cell Distribution Width 18.5 % (9.3-17.3)
[2019-01-06 05:22] LABS: Calcium 8.4 MG/DL (8.5-10.1); Osmolality,Calculated 269.8 MOS/KG (273-304)
[2019-01-06 05:39] LABS: Band Neutrophils 1 % (0-10); Eosinophils 7 % (0-10); Lymphocytes 28 % (20-55); Segmented Neutrophils 35 % (50-85); Total Cells Counted 100
[2019-01-06 05:40] LABS: Anisocytosis 1+; Atypical Lymphocytes Few; Hypochromasia 2+; Microcytosis 1+
[2019-01-06 05:41] LABS: Acanthocytes Few; Platelet Estimate Normal; Target Cells Few
[2019-01-06] MEDS ORDERED: ceFAZolin 1,000 MG in SYRINGE 1 EACH IV ONE (07:01)
[2019-01-06] MEDS: POTASSIUM CHLORIDE RIDER 10 MEQ in PREMIX 1 EACH IV PRN ×3 (08:31→10:56)
[2019-01-06] MEDS: PANTOPRAZOLE 40 MG VIAL IV SCH ×2 (08:31→20:15)
[2019-01-06] MEDS: POTASSIUM CHLORIDE 10 MEQ TABLET PO SCH ×2 (08:40→20:16)
[2019-01-06] MEDS ORDERED: LIDOCAINE 1%/EPI INJ 20 ML VIAL ONE (13:33)
[2019-01-06] MEDS ORDERED: HEPARIN 5,000 UNIT/1 ML VIAL ONE (13:33)
[2019-01-06] MEDS ORDERED: TISSUE ADHESIVE 1 EACH APPLICATOR TOP ONE (13:33)
[2019-01-06] MEDS ORDERED: BUPIVACAINE MPF 0.25% 30 ML VIAL ONE (13:34)
[2019-01-06] MEDS ORDERED: fentaNYL 100 MCG/2 ML VIAL ONE (16:04)
[2019-01-06] MEDS ORDERED: PROPOFOL 200 MG/20 ML VIAL IV ONE (16:04)
[2019-01-06] MEDS ORDERED: MIDAZOLAM 2 MG/2 ML VIAL ONE (16:04)
[2019-01-06] MEDS ORDERED: HYDROmorphone 2 MG/1 ML VIAL ONE (16:32)
[2019-01-06] MEDS ORDERED: ONDANSETRON 4 MG/2 ML VIAL ONE (16:32)
[2019-01-06] MEDS ORDERED: HYDROmorphone 2 MG/1 ML VIAL IV PRN (16:37)
[2019-01-06] MEDS ORDERED: ONDANSETRON 4 MG/2 ML VIAL IV PRN (16:37)
[2019-01-06 17:23] LABS: Hepatitis B Core IgM Quant 0.07 Index; Hepatitis B Surface Ag Quant < 0.10 Index; Hepatitis B Surface Ag Result Negative (Negative); Hepatitis C Virus Ab Quant < 0.02 Index; Hepatitis C Virus Ab Result Negative (Negative)
[2019-01-06] MEDS: POLYETHYLENE GLYCOL POWDER 17 GM PACK PO SCH (17:26)
[2019-01-06] MEDS: MORPHINE 4 MG/1 ML VIAL IV PRN (18:27)
[2019-01-07 05:37] LABS: Calcium 8.2 MG/DL (8.5-10.1); Osmolality,Calculated 266.1 MOS/KG (273-304)
[2019-01-07 06:41] LABS: Basophils % 0.4 % (0.0-0.8); Eosinophils # 0.2 10*3/uL (0.0-0.87); Eosinophils % 2.9 % (0.00-10.9); Hematocrit 21.1 VOL% (35.7-47.0); Immature Granulocytes % 1.7 %; Immature Granulocytes Absolute 0.14 #; Lymphocytes # 1.6 10*3/uL (1.4-4.0); Lymphocytes % 19.3 % (21.3-54.2); Mean Corpuscular HGB Conc 32.7 GM/DL (32-36); Mean Corpuscular Volume 75.1 FL (87-102); Mean Platelet Volume 11.8 FL (9.6-12.0); Monocytes % 25.4 % (1.7-12.7); Neutrophils % 50.3 % (38.7-73.9); Platelet Count 287 T/CUMM (130-400); Red Blood Count 2.81 MC/CUMM (3.8-5.5); Red Cell Distribution Width 18.4 % (9.3-17.3); White Blood Count 8.4 T/CUMM (4-12)
[2019-01-07 06:43] LABS: Hemoglobin 6.9 GM/DL (12.0-16.0)
[2019-01-07 07:01] LABS: Band Neutrophils 1 % (0-10); Eosinophils 2 % (0-10); Lymphocytes 14 % (20-55); Segmented Neutrophils 66 % (50-85); Total Cells Counted 100
[2019-01-07 07:02] LABS: Hypochromasia 1+; Microcytosis 1+; Ovalocytes Slight; Platelet Estimate Adequate
[2019-01-07] MEDS: POLYETHYLENE GLYCOL POWDER 17 GM PACK PO SCH (08:41)
[2019-01-07] MEDS: POTASSIUM CHLORIDE 10 MEQ TABLET PO SCH (08:41)
[2019-01-07] MEDS: PANTOPRAZOLE 40 MG VIAL IV SCH ×2 (08:41→20:09)
[2019-01-07] MEDS: MORPHINE 4 MG/1 ML VIAL IV PRN ×2 (08:47→16:37)
[2019-01-07] MEDS ORDERED: SODIUM CHLORIDE 0.9% 1,000 ML IV PRN (09:02)
[2019-01-07] MEDS ORDERED: EPOETIN ALFA 2,000 UNIT/1 ML VIAL IV PRN (11:15)
[2019-01-07] MEDS ORDERED: HEPARIN 10,000 UNIT/10 ML VIAL IV PRN (11:33)
[2019-01-07] MEDS ORDERED: ALTEPLASE 2 MG VIAL IV ONE ×2 (12:30)
[2019-01-07] MEDS ORDERED: ceFAZolin 2,000 MG in PREMIX 1 EACH IV SCH (17:00)
[2019-01-07 20:21] LABS: Hematocrit 24.4 VOL% (35.7-47.0); Hemoglobin 8.2 GM/DL (12.0-16.0)
[2019-01-08 04:03] LABS: Basophils % 0.3 % (0.0-0.8); Eosinophils # 0.3 10*3/uL (0.0-0.87); Eosinophils % 2.5 % (0.00-10.9); Hematocrit 23.7 VOL% (35.7-47.0); Hemoglobin 7.8 GM/DL (12.0-16.0); Immature Granulocytes % 1.8 %; Immature Granulocytes Absolute 0.21 #; Lymphocytes # 1.7 10*3/uL (1.4-4.0); Lymphocytes % 14.5 % (21.3-54.2); Mean Corpuscular HGB Conc 32.9 GM/DL (32-36); Mean Corpuscular Volume 78.7 FL (87-102); Mean Platelet Volume 12.2 FL (9.6-12.0); Monocytes % 18.5 % (1.7-12.7); Neutrophils % 62.4 % (38.7-73.9); Platelet Count 222 T/CUMM (130-400); Red Blood Count 3.01 MC/CUMM (3.8-5.5); Red Cell Distribution Width 18.6 % (9.3-17.3); White Blood Count 11.5 T/CUMM (4-12)
[2019-01-08 04:19] LABS: Calcium 7.5 MG/DL (8.5-10.1); Osmolality,Calculated 270.4 MOS/KG (273-304)
[2019-01-08 05:02] LABS: Band Neutrophils 3 % (0-10); Eosinophils 2 % (0-10); Lymphocytes 15 % (20-55); Platelet Estimate Normal; Segmented Neutrophils 60 % (50-85); Total Cells Counted 100
[2019-01-08 07:58] LABS: Immunoglobulin A 341 MG/DL (70-400); Immunoglobulin G 1160 MG/DL (700-1600); Immunoglobulin M 44 MG/DL (40-230)
[2019-01-08] MEDS: POLYETHYLENE GLYCOL POWDER 17 GM PACK PO SCH (08:03)
[2019-01-08] MEDS: PANTOPRAZOLE 40 MG VIAL IV SCH (08:03)
[2019-01-08 08:47] LABS: Total Protein (Chem) 4.4 G/DL (6.4-8.3)
[2019-01-08 08:48] LABS: Immunoglobulin A (Chem) 341 MG/DL (70-400); Immunoglobulin G (Chem) 1160 MG/DL (700-1600); Immunoglobulin M (Chem) 44 MG/DL (40-230)
[2019-01-08 12:42] LABS: Albumin (SPE) 1.5 G/DL (3.2-5.3); Alpha 1 (SPE) 0.3 G/DL (0.1-0.4); Alpha 1 (SPE) Rel % 7.7 %; Alpha 2 (SPE) 0.7 G/DL (0.4-1.0); Alpha 2 (SPE) Rel % 15.7 %; Beta (SPE) 1.1 G/DL (0.5-1.1); Gamma (SPE) 0.8 G/DL (0.7-1.7); Gamma (SPE) Rel % 18.8 %
[2019-01-08 12:49] LABS: Beta (SPE) Rel % 24.8 %
[2019-01-08 16:05] VITALS: BP 137/66
[2019-01-08] MEDS ORDERED: PANTOPRAZOLE 40 MG TABLET PO SCH (16:30)
[2019-01-10 13:42] LABS: Immuno Free Light Chain Kappa 33.85 MG/DL (0.33-1.94); Immuno Free Light Chain Lambda 20.09 MG/DL (0.57-2.63); Immuno Free Light Chain Ratio 1.68 MG/DL (0.26-1.65)
[2019-01-11] MEDS ORDERED: ceFAZolin 3,000 MG in SYRINGE 1 EACH IV SCH (17:00)
== END 2019-01-08 16:45 | disposition home or self-care (01) | DRG 907 ==
LOC: EDBD → EDUNIT# → N.ED 09:22 → N.EDINP 11:35 → SUATTDRO 11:35 → N.5E 12:23
PROVIDERS: ADMIT Internal Medicine; ATTEND Internal Medicine

== ENCOUNTER 2019-01-18 11:35 | Observation (INO) ==
[2019-01-18 12:32] LABS: Basophils # 0.1 10*3/uL (0.0-0.2); Basophils % 0.6 % (0.0-0.8); Eosinophils % 0.1 % (0.00-10.9); Hematocrit 25.9 VOL% (35.7-47.0); Hemoglobin 8.3 GM/DL (12.0-16.0); Immature Granulocytes % 0.8 %; Lymphocytes # 1.9 10*3/uL (1.4-4.0); Lymphocytes % 14.8 % (21.3-54.2); Mean Corpuscular Volume 81.2 FL (87-102); Mean Platelet Volume 10.7 FL (9.6-12.0); Neutrophils % 77.7 % (38.7-73.9); Platelet Count 288 T/CUMM (130-400); Red Blood Count 3.19 MC/CUMM (3.8-5.5); Red Cell Distribution Width 21.7 % (9.3-17.3); White Blood Count 12.9 T/CUMM (4-12)
[2019-01-18 12:52] LABS: Alanine Aminotransferase < 6 U/L (13-56); Albumin 1.3 G/DL (3.4-5.0); Alkaline Phosphatase 45 U/L (45-117); Aspartate Amino Transferase 18 U/L (0-37); Blood Urea Nitrogen 8 MG/DL (7-18); Calcium 7.7 MG/DL (8.5-10.1); Estimated Glom Filtration Rate 7 ML/MIN; Glucose 75 MG/DL (74-106); Osmolality,Calculated 275.4 MOS/KG (273-304); Total Protein 5.9 G/DL (6.4-8.3)
[2019-01-18] MEDS ORDERED: ONDANSETRON 4 MG/2 ML VIAL IV STA (13:13)
[2019-01-18] MEDS ORDERED: HYDROmorphone 2 MG/1 ML VIAL IV STA (13:13)
[2019-01-18] MEDS ORDERED: PROMETHAZINE 25 MG/1 ML VIAL IM PRN (14:15)
[2019-01-18] MEDS ORDERED: ONDANSETRON 4 MG/2 ML VIAL IV PRN (14:15)
[2019-01-18] MEDS ORDERED: ACETAMINOPHEN 325 MG TABLET PO PRN (14:15)
[2019-01-18] MEDS ORDERED: DOCUSATE SODIUM 100 MG CAPSULE PO PRN (14:15)
[2019-01-18] MEDS ORDERED: POTASSIUM CHLORIDE 20 MEQ TABLET PO STA (14:25)
[2019-01-18] MEDS ORDERED: PANTOPRAZOLE 40 MG TABLET PO SCH (14:30)
[2019-01-18] MEDS ORDERED: SODIUM CHLORIDE 0.9% 1,000 ML IV SCH (14:30)
[2019-01-18] MEDS ORDERED: FAMOTIDINE 20 MG/2 ML VIAL IV SCH (14:30)
[2019-01-18] MEDS ORDERED: PROMETHAZINE 25 MG/1 ML VIAL IM STA (14:55)
[2019-01-18] MEDS ORDERED: DEXTROSE 5% NACL 0.9% 1,000 ML IV SCH (15:00)
[2019-01-18] MEDS ORDERED: cefTAZidime 1,000 MG in SYRINGE 1 EACH IV SCH (17:00)
[2019-01-18] MEDS ORDERED: PROCHLORPERAZINE 5 MG TABLET PO SCH (17:00)
[2019-01-18] MEDS: PANTOPRAZOLE 40 MG TABLET PO SCH (21:04)
[2019-01-19 05:14] LABS: Basophils # 0.1 10*3/uL (0.0-0.2); Eosinophils # 0.1 10*3/uL (0.0-0.87); Eosinophils % 0.6 % (0.00-10.9); Hemoglobin 7.8 GM/DL (12.0-16.0); Immature Granulocytes % 0.7 %; Immature Granulocytes Absolute 0.07 #; Lymphocytes # 1.8 10*3/uL (1.4-4.0); Lymphocytes % 18.8 % (21.3-54.2); Mean Corpuscular HGB Conc 31.2 GM/DL (32-36); Mean Corpuscular Volume 82.2 FL (87-102); Mean Platelet Volume 12.9 FL (9.6-12.0); Monocytes % 7.6 % (1.7-12.7); Neutrophils % 71.3 % (38.7-73.9); Platelet Count 236 T/CUMM (130-400); Red Blood Count 3.04 MC/CUMM (3.8-5.5); Red Cell Distribution Width 22.5 % (9.3-17.3); White Blood Count 9.7 T/CUMM (4-12)
[2019-01-19 05:42] LABS: Alanine Aminotransferase < 6 U/L (13-56); Albumin 1.1 G/DL (3.4-5.0); Alkaline Phosphatase 44 U/L (45-117); Aspartate Amino Transferase 17 U/L (0-37); Blood Urea Nitrogen 7 MG/DL (7-18); Calcium 7.9 MG/DL (8.5-10.1); Estimated Glom Filtration Rate 7 ML/MIN; Glucose 72 MG/DL (74-106); HDL Cholesterol 27 MG/DL (40-60); Osmolality,Calculated 279.1 MOS/KG (273-304); Risk Ratio 3.63; Total Protein 5.8 G/DL (6.4-8.3); Triglycerides 131 MG/DL (2-150); VLDL CHOLESTEROL 26.2 MG/DL
[2019-01-19] MEDS ORDERED: HEPARIN 10,000 UNIT/10 ML VIAL IV SCH (06:30)
[2019-01-19] MEDS: PANTOPRAZOLE 40 MG TABLET PO SCH (08:33)
[2019-01-19] MEDS ORDERED: MAGNESIUM SULF RIDER 1 GM in PREMIX 1 EACH IV ONE (10:00)
[2019-01-19 12:37] VITALS: BP 107/62
== END 2019-01-19 17:15 | disposition home or self-care (01) ==
LOC: EDBD → EDUNIT# → N.ED 11:35 → N.EDINP 11:35 → N.5E 16:23
PROVIDERS: ADMIT Hospitalist; ATTEND Hospitalist

== ENCOUNTER 2019-02-19 13:35 | Inpatient (IN) ==
[2019-02-19 14:43] LABS: Basophils % 0.2 % (0.0-0.8); Hematocrit 38.4 VOL% (35.7-47.0); Hemoglobin 11.9 GM/DL (12.0-16.0); Immature Granulocytes % 0.8 %; Immature Granulocytes Absolute 0.04 #; Lymphocytes # 0.9 10*3/uL (1.4-4.0); Mean Corpuscular Volume 82.2 FL (87-102); Monocytes % 9.3 % (1.7-12.7); Neutrophils % 71.7 % (38.7-73.9); Platelet Count 137 T/CUMM (130-400); Red Blood Count 4.67 MC/CUMM (3.8-5.5); Red Cell Distribution Width 22.3 % (9.3-17.3); White Blood Count 5.2 T/CUMM (4-12)
[2019-02-19] MEDS ORDERED: ONDANSETRON 4 MG/2 ML VIAL IV ONE (14:45)
[2019-02-19] MEDS ORDERED: MORPHINE 4 MG/1 ML VIAL IV STA (14:45)
[2019-02-19 15:01] LABS: Alanine Aminotransferase 9 U/L (13-56); Albumin 1.8 G/DL (3.4-5.0); Alkaline Phosphatase 46 U/L (45-117); Aspartate Amino Transferase 18 U/L (0-37); Blood Urea Nitrogen 17 MG/DL (7-18); Calcium 8.1 MG/DL (8.5-10.1); Estimated Glom Filtration Rate 5 ML/MIN; Glucose 137 MG/DL (74-106); Osmolality,Calculated 278.7 MOS/KG (273-304); Total Protein 6.2 G/DL (6.4-8.3)
[2019-02-19] MEDS ORDERED: POTASSIUM CHLORIDE 20 MEQ TABLET PO STA (15:18)
[2019-02-19 15:24] LABS: Hypochromasia 1+; Microcytosis 1+; Ovalocytes Few; Target Cells Few
[2019-02-19 15:25] LABS: Platelet Estimate Adequate
[2019-02-19] MEDS ORDERED: ONDANSETRON 4 MG/2 ML VIAL IV PRN ×2 (16:00→16:06)
[2019-02-19] MEDS ORDERED: SODIUM CHLORIDE 0.9% 500 ML IV ONE ×2 (16:23→21:52)
[2019-02-19] MEDS ORDERED: HEPARIN 5,000 UNIT/1 ML VIAL ONE (17:31)
[2019-02-19] MEDS: HEPARIN 5,000 UNIT/1 ML VIAL SUBCUT SCH (17:31)
[2019-02-19 20:09] LABS: Hematocrit 40.6 VOL% (35.7-47.0); Hemoglobin 12.6 GM/DL (12.0-16.0); Immature Granulocytes % 0.7 %; Immature Granulocytes Absolute 0.02 #; Lymphocytes # 0.5 10*3/uL (1.4-4.0); Mean Corpuscular Volume 82.4 FL (87-102); Monocytes % 17.3 % (1.7-12.7); NRBC # 0.02 10*3/uL; Platelet Count 136 T/CUMM (130-400); Red Blood Count 4.93 MC/CUMM (3.8-5.5); Red Cell Distribution Width 22.5 % (9.3-17.3); White Blood Count 3.1 T/CUMM (4-12)
[2019-02-19] MEDS: MORPHINE 4 MG/1 ML VIAL IV PRN (20:32)
[2019-02-19 20:42] LABS: Band Neutrophils 3 % (0-10); Lymphocytes 20 % (20-55); Segmented Neutrophils 61 % (50-85); Total Cells Counted 100
[2019-02-19 20:43] LABS: Hypochromasia Slight; Microcytosis Slight; Platelet Estimate Adequate; Polychromasia Few
[2019-02-19 20:44] LABS: Giant Platelets Few; Ovalocytes Few
[2019-02-20] MEDS: HEPARIN 5,000 UNIT/1 ML VIAL SUBCUT SCH ×3 (00:22→18:16)
[2019-02-20] MEDS: MORPHINE 4 MG/1 ML VIAL IV PRN (04:28)
[2019-02-20 05:31] LABS: Osmolality,Calculated 282.4 MOS/KG (273-304)
[2019-02-20] MEDS ORDERED: ONDANSETRON ODT 4 MG TABLET PO PRN (07:50)
[2019-02-20] MEDS ORDERED: POMALIDOMIDE 3 MG PO SCH (08:00)
[2019-02-20] MEDS ORDERED: MORPHINE 4 MG/1 ML VIAL IV PRN (08:34)
[2019-02-20] MEDS: PANTOPRAZOLE 40 MG VIAL IV SCH (09:47)
[2019-02-20] MEDS: MULTIVITAMIN (BEROCCA) TABLET PO SCH (09:48)
[2019-02-20] MEDS: PIPERACILLIN/TAZOBACTAM 3,375 MG in SODIUM CHLORIDE 0.9% 100 ML IV SCH ×2 (09:50→20:48)
[2019-02-20] MEDS: Sucroferric Oxyhydroxide [Velphoro] 500 MG PO SCH ×3 (10:02→18:16)
[2019-02-20] MEDS ORDERED: ALBUTEROL 2.5 MG/3 ML NEB RESP TX PRN (11:00)
[2019-02-20] MEDS ORDERED: ALTEPLASE 2 MG VIAL IV SCH (17:30)
[2019-02-20] MEDS ORDERED: HEPARIN 10,000 UNIT/10 ML VIAL IV SCH (17:30)
[2019-02-21] MEDS: HEPARIN 5,000 UNIT/1 ML VIAL SUBCUT SCH ×3 (01:08→18:13)
[2019-02-21 05:35] LABS: Basophils % 0.3 % (0.0-0.8); Hematocrit 33.5 VOL% (35.7-47.0); Hemoglobin 10.5 GM/DL (12.0-16.0); Immature Granulocytes Absolute 0.11 #; Lymphocytes # 0.7 10*3/uL (1.4-4.0); Lymphocytes % 6.5 % (21.3-54.2); Mean Corpuscular HGB Conc 31.3 GM/DL (32-36); Mean Corpuscular Volume 81.3 FL (87-102); Monocytes % 5.6 % (1.7-12.7); Neutrophils % 86.6 % (38.7-73.9); Platelet Count 97 T/CUMM (130-400); Red Blood Count 4.12 MC/CUMM (3.8-5.5); Red Cell Distribution Width 22.3 % (9.3-17.3); White Blood Count 11.4 T/CUMM (4-12)
[2019-02-21 06:01] LABS: Calcium 7.5 MG/DL (8.5-10.1); Osmolality,Calculated 282.7 MOS/KG (273-304)
[2019-02-21 06:05] LABS: Band Neutrophils 13 % (0-10); Eosinophils 1 % (0-10); Hypochromasia 1+; Lymphocytes 4 % (20-55); Microcytosis Slight; Ovalocytes Slight; Platelet Estimate Decreased; Segmented Neutrophils 73 % (50-85); Target Cells Few; Total Cells Counted 100
[2019-02-21] MEDS: PANTOPRAZOLE 40 MG VIAL IV SCH (09:44)
[2019-02-21] MEDS: Sucroferric Oxyhydroxide [Velphoro] 500 MG PO SCH ×3 (09:44→18:58)
[2019-02-21] MEDS: MULTIVITAMIN (BEROCCA) TABLET PO SCH (09:44)
[2019-02-21] MEDS: PIPERACILLIN/TAZOBACTAM 3,375 MG in SODIUM CHLORIDE 0.9% 100 ML IV SCH ×2 (09:49→21:56)
[2019-02-21] MEDS ORDERED: MIDAZOLAM 2 MG/2 ML VIAL ONE (13:16)
[2019-02-21] MEDS ORDERED: fentaNYL 100 MCG/2 ML VIAL ONE (13:16)
[2019-02-21] MEDS ORDERED: fentaNYL 100 MCG/2 ML VIAL IV ONE (13:38)
[2019-02-21] MEDS ORDERED: MIDAZOLAM 2 MG/2 ML VIAL IV ONE (13:39)
[2019-02-21] MEDS ORDERED: HEPARIN LOCK FLUSH 500 UNIT/5 ML SYRINGE IV ONE (13:58)
[2019-02-21] MEDS ORDERED: HEPARIN LOCK FLUSH 500 UNIT/5 ML SYRINGE IV PRN (15:01)
[2019-02-21] MEDS: DICYCLOMINE 20 MG TABLET PO SCH ×2 (15:30→21:55)
[2019-02-21] MEDS: HEPARIN LOCK FLUSH 500 UNIT/5 ML SYRINGE IV SCH (21:55)
[2019-02-22] MEDS: HEPARIN 5,000 UNIT/1 ML VIAL SUBCUT SCH ×4 (00:12→23:47)
[2019-02-22] MEDS: DICYCLOMINE 20 MG TABLET PO SCH ×2 (08:43→22:05)
[2019-02-22] MEDS: MULTIVITAMIN (BEROCCA) TABLET PO SCH (08:43)
[2019-02-22] MEDS: Sucroferric Oxyhydroxide [Velphoro] 500 MG PO SCH ×3 (08:44→17:13)
[2019-02-22] MEDS: PIPERACILLIN/TAZOBACTAM 3,375 MG in SODIUM CHLORIDE 0.9% 100 ML IV SCH ×2 (08:45→22:00)
[2019-02-22] MEDS: PANTOPRAZOLE 40 MG VIAL IV SCH (08:45)
[2019-02-22] MEDS: HEPARIN LOCK FLUSH 500 UNIT/5 ML SYRINGE IV SCH ×2 (08:49→22:00)
[2019-02-22 11:54] LABS: Basophils % 0.2 % (0.0-0.8); Eosinophils % 0.2 % (0.00-10.9); Hemoglobin 9.4 GM/DL (12.0-16.0); Immature Granulocytes % 0.7 %; Immature Granulocytes Absolute 0.11 #; Lymphocytes # 0.8 10*3/uL (1.4-4.0); Lymphocytes % 5.3 % (21.3-54.2); Mean Corpuscular HGB Conc 31.3 GM/DL (32-36); Mean Corpuscular Volume 80.6 FL (87-102); Monocytes % 5.3 % (1.7-12.7); Neutrophils % 88.3 % (38.7-73.9); Platelet Count 95 T/CUMM (130-400); Red Blood Count 3.72 MC/CUMM (3.8-5.5)
[2019-02-22 12:28] LABS: Alanine Aminotransferase < 6 U/L (13-56); Albumin 1.2 G/DL (3.4-5.0); Alkaline Phosphatase 82 U/L (45-117); Aspartate Amino Transferase 9 U/L (0-37); Blood Urea Nitrogen 23 MG/DL (7-18); Calcium 8.2 MG/DL (8.5-10.1); Estimated Glom Filtration Rate 7 ML/MIN; Glucose 94 MG/DL (74-106); Osmolality,Calculated 280.5 MOS/KG (273-304); Total Protein 5.6 G/DL (6.4-8.3)
[2019-02-22 12:40] LABS: Hypochromasia 1+; Lymphocytes 5 % (20-55); Macrocytosis Slight; Microcytosis 1+; Segmented Neutrophils 93 % (50-85); Total Cells Counted 100
[2019-02-22 12:41] LABS: Platelet Estimate Decreased; Target Cells 1+; Tear Drop Cells Few
[2019-02-22] MEDS: LEVOFLOXACIN INJ 500 MG in PREMIX 1 EACH IV SCH (17:09)
[2019-02-22] MEDS: HYDROmorphone 2 MG/1 ML VIAL IV PRN (23:47)
[2019-02-23] MEDS: HYDROmorphone 2 MG/1 ML VIAL IV PRN ×3 (07:20→16:18)
[2019-02-23 07:32] LABS: Basophils % 0.3 % (0.0-0.8); Eosinophils # 0.1 10*3/uL (0.0-0.87); Eosinophils % 0.6 % (0.00-10.9); Hemoglobin 9.2 GM/DL (12.0-16.0); Immature Granulocytes % 1.5 %; Immature Granulocytes Absolute 0.24 #; Lymphocytes % 6.1 % (21.3-54.2); Mean Corpuscular HGB Conc 32.9 GM/DL (32-36); Mean Corpuscular Volume 78.7 FL (87-102); Monocytes % 5.2 % (1.7-12.7); Neutrophils % 86.3 % (38.7-73.9); Platelet Count 104 T/CUMM (130-400); Red Blood Count 3.56 MC/CUMM (3.8-5.5); Red Cell Distribution Width 21.7 % (9.3-17.3); White Blood Count 15.8 T/CUMM (4-12)
[2019-02-23 07:48] LABS: Calcium 8.2 MG/DL (8.5-10.1); Osmolality,Calculated 264.8 MOS/KG (273-304)
[2019-02-23 07:53] LABS: Anisocytosis 2+; Band Neutrophils 14 % (0-10); Eosinophils 1 % (0-10); Lymphocytes 13 % (20-55); Platelet Estimate Adequate; Poikilocytosis Slight; Polychromasia Slight; Segmented Neutrophils 66 % (50-85); Target Cells Few; Total Cells Counted 100
[2019-02-23 07:54] LABS: Macrocytosis 1+
[2019-02-23] MEDS: PANTOPRAZOLE 40 MG VIAL IV SCH (08:52)
[2019-02-23] MEDS ORDERED: ALBUMIN 5% 12.5 GM/250 ML VIAL IV ONE (09:33)
[2019-02-23] MEDS ORDERED: ALBUMIN 25% 25 GM/100 ML VIAL IV ONE (09:33)
[2019-02-23] MEDS ORDERED: BUPIVACAINE MPF 0.25% 30 ML VIAL ONE (09:37)
[2019-02-23] MEDS ORDERED: LIDOCAINE 1%/EPI INJ 20 ML VIAL ONE (09:37)
[2019-02-23] MEDS: PIPERACILLIN/TAZOBACTAM 3,375 MG in SODIUM CHLORIDE 0.9% 100 ML IV SCH ×2 (09:50→22:00)
[2019-02-23] MEDS: MULTIVITAMIN (BEROCCA) TABLET PO SCH (11:01)
[2019-02-23] MEDS: DICYCLOMINE 20 MG TABLET PO SCH ×2 (11:01→21:59)
[2019-02-23] MEDS: Sucroferric Oxyhydroxide [Velphoro] 500 MG PO SCH ×3 (11:01→17:40)
[2019-02-23] MEDS ORDERED: SUGAMMADEX 200 MG/2 ML VIAL IV ONE (11:17)
[2019-02-23] MEDS: SODIUM CHLORIDE 0.9% 1,000 ML IV SCH (11:25)
[2019-02-23] MEDS ORDERED: IMMUNE GLOBULIN 10% 20 GM in PREMIX 1 EACH IV ONE (11:36)
[2019-02-23] MEDS: HEPARIN 5,000 UNIT/1 ML VIAL SUBCUT SCH ×2 (11:50→16:18)
[2019-02-23] MEDS: HEPARIN LOCK FLUSH 500 UNIT/5 ML SYRINGE IV SCH ×2 (11:50→22:00)
[2019-02-23] MEDS ORDERED: PHENYLEPHRINE DRIP 20 MG/250 ML PREMIX IV ONE (11:58)
[2019-02-23] MEDS ORDERED: CALCIUM CHLORIDE 1,000 MG/10 ML VIAL IV ONE (11:58)
[2019-02-23] MEDS ORDERED: PROPOFOL 200 MG/20 ML VIAL IV ONE (11:58)
[2019-02-23] MEDS ORDERED: LIDOCAINE 2% 5 ML VIAL ONE (11:58)
[2019-02-23] MEDS ORDERED: SEVOFLURANE 1 UNIT/15 MINUTE INH ONE (11:58)
[2019-02-23] MEDS ORDERED: NEOSTIGMINE 10 MG/10 ML VIAL ONE (11:59)
[2019-02-23] MEDS ORDERED: MIDAZOLAM 2 MG/2 ML VIAL ONE (11:59)
[2019-02-23] MEDS ORDERED: ROCURONIUM 100 MG/10 ML VIAL IV ONE (11:59)
[2019-02-23] MEDS ORDERED: fentaNYL 100 MCG/2 ML VIAL ONE (11:59)
[2019-02-23] MEDS ORDERED: SUCCINYLCHOLINE 200 MG/10 ML VIAL ONE (11:59)
[2019-02-23] MEDS ORDERED: PHENYLEPHRINE 1 MG/10 ML SYRINGE IV ONE (11:59)
[2019-02-23] MEDS ORDERED: GLYCOPYRROLATE 0.4 MG/2 ML VIAL ONE (11:59)
[2019-02-23] MEDS ORDERED: ONDANSETRON 4 MG/2 ML VIAL ONE (11:59)
[2019-02-23] MEDS ORDERED: SODIUM CHLORIDE 0.9% 250 ML IV ONE (11:59)
[2019-02-23] MEDS ORDERED: NOREPINEPHRINE 8 MG in SODIUM CHLORIDE 0.9% 242 ML IV PRN (18:08)
[2019-02-23 18:22] LABS: Hematocrit 25.9 VOL% (35.7-47.0)
[2019-02-23 18:23] LABS: Hemoglobin 8.3 GM/DL (12.0-16.0)
[2019-02-24] MEDS: HEPARIN 5,000 UNIT/1 ML VIAL SUBCUT SCH ×3 (01:10→17:07)
[2019-02-24] MEDS: SODIUM CHLORIDE 0.9% 1,000 ML IV SCH ×2 (02:19→15:45)
[2019-02-24 04:41] LABS: Basophils % 0.1 % (0.0-0.8); Eosinophils # 0.1 10*3/uL (0.0-0.87); Eosinophils % 0.6 % (0.00-10.9); Hematocrit 23.5 VOL% (35.7-47.0); Hemoglobin 7.6 GM/DL (12.0-16.0); Immature Granulocytes % 1.4 %; Lymphocytes # 1.3 10*3/uL (1.4-4.0); Mean Corpuscular HGB Conc 32.3 GM/DL (32-36); Mean Corpuscular Volume 79.7 FL (87-102); Monocytes % 5.8 % (1.7-12.7); Neutrophils % 83.1 % (38.7-73.9); Platelet Count 119 T/CUMM (130-400); Red Blood Count 2.95 MC/CUMM (3.8-5.5); White Blood Count 14.5 T/CUMM (4-12)
[2019-02-24 05:03] LABS: Band Neutrophils 5 % (0-10); Eosinophils 1 % (0-10); Lymphocytes 13 % (20-55); Nucleated Red Blood Cells 1 (0-5); Segmented Neutrophils 77 % (50-85); Total Cells Counted 100
[2019-02-24 05:04] LABS: Hypochromasia 1+; Microcytosis 2+; Platelet Estimate Adequate; Target Cells Few
[2019-02-24 05:05] LABS: Ovalocytes Few
[2019-02-24 05:06] LABS: Polychromasia Few
[2019-02-24] MEDS: HYDROmorphone 2 MG/1 ML VIAL IV PRN ×3 (05:58→20:09)
[2019-02-24] MEDS ORDERED: SODIUM CHLORIDE 0.9% 1,000 ML IV PRN (08:13)
[2019-02-24] MEDS: Sucroferric Oxyhydroxide [Velphoro] 500 MG PO SCH ×3 (10:03→18:26)
[2019-02-24] MEDS: DICYCLOMINE 20 MG TABLET PO SCH ×2 (10:03→20:13)
[2019-02-24] MEDS: MULTIVITAMIN (BEROCCA) TABLET PO SCH (10:03)
[2019-02-24] MEDS: HEPARIN LOCK FLUSH 500 UNIT/5 ML SYRINGE IV SCH ×2 (10:04→20:12)
[2019-02-24] MEDS: PANTOPRAZOLE 40 MG VIAL IV SCH (10:04)
[2019-02-24] MEDS: PIPERACILLIN/TAZOBACTAM 3,375 MG in SODIUM CHLORIDE 0.9% 100 ML IV SCH ×2 (10:04→20:15)
[2019-02-24] MEDS: LEVOFLOXACIN INJ 500 MG in PREMIX 1 EACH IV SCH (18:27)
[2019-02-24] MEDS: ESCITALOPRAM 10 MG TABLET PO SCH (20:13)
[2019-02-25] MEDS: HEPARIN 5,000 UNIT/1 ML VIAL SUBCUT SCH ×3 (00:39→16:41)
[2019-02-25] MEDS: SODIUM CHLORIDE 0.9% 1,000 ML IV SCH ×3 (03:25→21:52)
[2019-02-25 03:50] LABS: Basophils % 0.2 % (0.0-0.8); Eosinophils # 0.2 10*3/uL (0.0-0.87); Eosinophils % 1.3 % (0.00-10.9); Immature Granulocytes % 3.7 %; Immature Granulocytes Absolute 0.49 #; Lymphocytes # 1.6 10*3/uL (1.4-4.0); Lymphocytes % 11.6 % (21.3-54.2); Mean Corpuscular HGB Conc 33.3 GM/DL (32-36); Mean Corpuscular Volume 79.2 FL (87-102); Monocytes % 5.7 % (1.7-12.7); Neutrophils % 77.5 % (38.7-73.9); Platelet Count 121 T/CUMM (130-400); Red Blood Count 3.41 MC/CUMM (3.8-5.5); Red Cell Distribution Width 20.1 % (9.3-17.3); White Blood Count 13.4 T/CUMM (4-12)
[2019-02-25 04:28] LABS: Osmolality,Calculated 274.8 MOS/KG (273-304)
[2019-02-25 08:52] LABS: Alanine Aminotransferase < 6 U/L (13-56); Albumin 1.1 G/DL (3.4-5.0); Alkaline Phosphatase 97 U/L (45-117); Aspartate Amino Transferase 16 U/L (0-37); Blood Urea Nitrogen 18 MG/DL (7-18); Calcium 7.7 MG/DL (8.5-10.1); Estimated Glom Filtration Rate 10 ML/MIN; Glucose 80 MG/DL (74-106); Osmolality,Calculated 277.5 MOS/KG (273-304); Total Protein 5.8 G/DL (6.4-8.3)
[2019-02-25] MEDS: PANTOPRAZOLE 40 MG VIAL IV SCH (09:29)
[2019-02-25] MEDS: MULTIVITAMIN (BEROCCA) TABLET PO SCH (09:29)
[2019-02-25] MEDS: DICYCLOMINE 20 MG TABLET PO SCH ×2 (09:29→22:05)
[2019-02-25] MEDS: Sucroferric Oxyhydroxide [Velphoro] 500 MG PO SCH ×3 (09:29→16:41)
[2019-02-25] MEDS: HEPARIN LOCK FLUSH 500 UNIT/5 ML SYRINGE IV SCH ×2 (09:30→22:06)
[2019-02-25] MEDS: PIPERACILLIN/TAZOBACTAM 3,375 MG in SODIUM CHLORIDE 0.9% 100 ML IV SCH ×2 (09:30→21:53)
[2019-02-25] MEDS: ITRACONAZOLE 100 MG CAPSULE PO SCH (16:41)
[2019-02-25] MEDS: ESCITALOPRAM 10 MG TABLET PO SCH (22:04)
[2019-02-26] MEDS: HEPARIN 5,000 UNIT/1 ML VIAL SUBCUT SCH ×3 (00:33→17:09)
[2019-02-26 05:28] LABS: Basophils # 0.1 10*3/uL (0.0-0.2); Basophils % 0.4 % (0.0-0.8); Eosinophils # 0.2 10*3/uL (0.0-0.87); Eosinophils % 1.3 % (0.00-10.9); Immature Granulocytes % 4.6 %; Immature Granulocytes Absolute 0.65 #; Lymphocytes # 2.1 10*3/uL (1.4-4.0); Lymphocytes % 14.8 % (21.3-54.2); Mean Corpuscular HGB Conc 32.1 GM/DL (32-36); Mean Corpuscular Volume 80.2 FL (87-102); Monocytes % 5.3 % (1.7-12.7); Neutrophils % 73.6 % (38.7-73.9); Platelet Count 147 T/CUMM (130-400); Red Blood Count 3.49 MC/CUMM (3.8-5.5); Red Cell Distribution Width 20.7 % (9.3-17.3); White Blood Count 14.2 T/CUMM (4-12)
[2019-02-26 06:05] LABS: Band Neutrophils 4 % (0-10); Lymphocytes 11 % (20-55); Metamyelocytes 1 %; Myelocytes 1 %; Segmented Neutrophils 79 % (50-85); Total Cells Counted 100
[2019-02-26 06:06] LABS: Hypochromasia 2+; Microcytosis 2+; Target Cells Few
[2019-02-26 06:07] LABS: Platelet Estimate Adequate
[2019-02-26 07:57] LABS: Osmolality,Calculated 268.2 MOS/KG (273-304)
[2019-02-26] MEDS ORDERED: DEXTROSE 10% 250 ML IV ONE (08:05)
[2019-02-26] MEDS: PIPERACILLIN/TAZOBACTAM 3,375 MG in SODIUM CHLORIDE 0.9% 100 ML IV SCH ×2 (08:45→21:43)
[2019-02-26] MEDS: ITRACONAZOLE 100 MG CAPSULE PO SCH (08:46)
[2019-02-26] MEDS: DICYCLOMINE 20 MG TABLET PO SCH ×2 (08:46→21:42)
[2019-02-26] MEDS: MULTIVITAMIN (BEROCCA) TABLET PO SCH (08:46)
[2019-02-26] MEDS: SODIUM CHLORIDE 0.9% 1,000 ML IV SCH ×2 (08:47→17:50)
[2019-02-26] MEDS: PANTOPRAZOLE 40 MG VIAL IV SCH (08:48)
[2019-02-26] MEDS: Sucroferric Oxyhydroxide [Velphoro] 500 MG PO SCH ×3 (08:54→17:09)
[2019-02-26] MEDS: HEPARIN LOCK FLUSH 500 UNIT/5 ML SYRINGE IV SCH ×2 (09:49→21:42)
[2019-02-26] MEDS: HYDROmorphone 2 MG/1 ML VIAL IV PRN (14:05)
[2019-02-26] MEDS: LEVOFLOXACIN INJ 500 MG in PREMIX 1 EACH IV SCH (17:08)
[2019-02-26] MEDS: CYPROHEPTADINE 4 MG TABLET PO SCH (21:41)
[2019-02-26] MEDS: ESCITALOPRAM 10 MG TABLET PO SCH (21:42)
[2019-02-26] MEDS: DOCUSATE SODIUM 100 MG CAPSULE PO SCH (21:42)
[2019-02-26] MEDS: POLYETHYLENE GLYCOL POWDER 17 GM PACK PO SCH (21:45)
[2019-02-27] MEDS: HEPARIN 5,000 UNIT/1 ML VIAL SUBCUT SCH ×3 (00:57→17:00)
[2019-02-27 05:21] LABS: Basophils % 0.2 % (0.0-0.8); Eosinophils # 0.1 10*3/uL (0.0-0.87); Eosinophils % 0.8 % (0.00-10.9); Hematocrit 28.2 VOL% (35.7-47.0); Hemoglobin 9.4 GM/DL (12.0-16.0); Immature Granulocytes % 4.5 %; Lymphocytes # 1.8 10*3/uL (1.4-4.0); Lymphocytes % 13.4 % (21.3-54.2); Mean Corpuscular HGB Conc 33.3 GM/DL (32-36); Mean Corpuscular Volume 79.2 FL (87-102); Mean Platelet Volume 10.9 FL (9.6-12.0); Monocytes % 5.6 % (1.7-12.7); Neutrophils % 75.5 % (38.7-73.9); Platelet Count 140 T/CUMM (130-400); Red Blood Count 3.56 MC/CUMM (3.8-5.5); Red Cell Distribution Width 20.9 % (9.3-17.3); White Blood Count 13.2 T/CUMM (4-12)
[2019-02-27 05:51] LABS: Calcium 7.9 MG/DL (8.5-10.1); Osmolality,Calculated 271.7 MOS/KG (273-304)
[2019-02-27 07:57] LABS: Anisocytosis 2+; Band Neutrophils 5 % (0-10); Lymphocytes 18 % (20-55); Macrocytosis 1+; Metamyelocytes 1 %; Myelocytes 2 %; Platelet Estimate Adequate; Segmented Neutrophils 69 % (50-85); Target Cells Few; Total Cells Counted 100
[2019-02-27] MEDS: ITRACONAZOLE 100 MG CAPSULE PO SCH (09:01)
[2019-02-27] MEDS: MULTIVITAMIN (BEROCCA) TABLET PO SCH (09:01)
[2019-02-27] MEDS: CYPROHEPTADINE 4 MG TABLET PO SCH ×2 (09:01→22:34)
[2019-02-27] MEDS: DOCUSATE SODIUM 100 MG CAPSULE PO SCH ×2 (09:01→22:29)
[2019-02-27] MEDS: SODIUM CHLORIDE 0.9% 1,000 ML IV SCH (09:01)
[2019-02-27] MEDS: PANTOPRAZOLE 40 MG VIAL IV SCH (09:02)
[2019-02-27] MEDS: DICYCLOMINE 20 MG TABLET PO SCH ×2 (09:02→22:29)
[2019-02-27] MEDS: POLYETHYLENE GLYCOL POWDER 17 GM PACK PO SCH ×2 (09:02→22:29)
[2019-02-27] MEDS: CALCITRIOL 0.25 MCG CAPSULE PO SCH (09:02)
[2019-02-27] MEDS: HEPARIN LOCK FLUSH 500 UNIT/5 ML SYRINGE IV SCH ×2 (09:03→22:29)
[2019-02-27] MEDS: Sucroferric Oxyhydroxide [Velphoro] 500 MG PO SCH ×3 (09:04→17:00)
[2019-02-27] MEDS: PIPERACILLIN/TAZOBACTAM 3,375 MG in SODIUM CHLORIDE 0.9% 100 ML IV SCH (09:17)
[2019-02-27] MEDS ORDERED: MEROPENEM 500 MG in SODIUM CHLORIDE 0.9% 100 ML IV ONE (10:30)
[2019-02-27] MEDS: HYDROmorphone 2 MG/1 ML VIAL IV PRN (12:41)
[2019-02-27] MEDS: ESCITALOPRAM 10 MG TABLET PO SCH (22:28)
[2019-02-28 05:30] LABS: Basophils % 0.3 % (0.0-0.8); Eosinophils # 0.1 10*3/uL (0.0-0.87); Eosinophils % 0.6 % (0.00-10.9); Hematocrit 27.2 VOL% (35.7-47.0); Hemoglobin 8.8 GM/DL (12.0-16.0); Immature Granulocytes % 3.6 %; Immature Granulocytes Absolute 0.53 #; Lymphocytes # 2.3 10*3/uL (1.4-4.0); Lymphocytes % 15.5 % (21.3-54.2); Mean Corpuscular HGB Conc 32.4 GM/DL (32-36); Mean Platelet Volume 11.2 FL (9.6-12.0); Monocytes % 5.9 % (1.7-12.7); Neutrophils % 74.1 % (38.7-73.9); Platelet Count 169 T/CUMM (130-400); Red Cell Distribution Width 21.2 % (9.3-17.3); White Blood Count 14.9 T/CUMM (4-12)
[2019-02-28 05:53] LABS: Band Neutrophils 1 % (0-10); Eosinophils 1 % (0-10); Hypochromasia 2+; Lymphocytes 11 % (20-55); Myelocytes 1 %; Segmented Neutrophils 78 % (50-85); Total Cells Counted 100
[2019-02-28 05:54] LABS: Anisocytosis 1+; Burr Cells Slight; Microcytosis 1+; Target Cells Few
[2019-02-28 05:55] LABS: Ovalocytes Slight; Platelet Estimate Adequate
[2019-02-28] MEDS: HEPARIN LOCK FLUSH 500 UNIT/5 ML SYRINGE IV SCH ×2 (10:28→20:55)
[2019-02-28] MEDS: DOCUSATE SODIUM 100 MG CAPSULE PO SCH ×2 (10:29→20:57)
[2019-02-28] MEDS: MULTIVITAMIN (BEROCCA) TABLET PO SCH (10:30)
[2019-02-28] MEDS: ITRACONAZOLE 100 MG CAPSULE PO SCH (10:30)
[2019-02-28] MEDS: CALCITRIOL 0.25 MCG CAPSULE PO SCH (10:30)
[2019-02-28] MEDS: CYPROHEPTADINE 4 MG TABLET PO SCH ×2 (10:30→20:57)
[2019-02-28] MEDS: DICYCLOMINE 20 MG TABLET PO SCH ×2 (10:30→20:57)
[2019-02-28] MEDS: LINACLOTIDE 145 MCG CAPSULE PO SCH (10:31)
[2019-02-28] MEDS: Sucroferric Oxyhydroxide [Velphoro] 500 MG PO SCH ×2 (10:31→17:26)
[2019-02-28] MEDS: POLYETHYLENE GLYCOL POWDER 17 GM PACK PO SCH ×2 (10:31→20:58)
[2019-02-28] MEDS: PANTOPRAZOLE 40 MG VIAL IV SCH (10:32)
[2019-02-28] MEDS: HEPARIN 5,000 UNIT/1 ML VIAL SUBCUT SCH ×3 (10:40→17:27)
[2019-02-28] MEDS: MEROPENEM 500 MG in SODIUM CHLORIDE 0.9% 100 ML IV SCH (17:30)
[2019-02-28] MEDS: ESCITALOPRAM 10 MG TABLET PO SCH (20:58)
[2019-03-01] MEDS: HEPARIN 5,000 UNIT/1 ML VIAL SUBCUT SCH ×4 (00:22→23:56)
[2019-03-01 06:12] LABS: Basophils # 0.1 10*3/uL (0.0-0.2); Basophils % 0.4 % (0.0-0.8); Eosinophils # 0.1 10*3/uL (0.0-0.87); Eosinophils % 0.6 % (0.00-10.9); Hematocrit 26.8 VOL% (35.7-47.0); Hemoglobin 8.5 GM/DL (12.0-16.0); Immature Granulocytes % 1.8 %; Immature Granulocytes Absolute 0.25 #; Mean Corpuscular HGB Conc 31.7 GM/DL (32-36); Mean Platelet Volume 11.5 FL (9.6-12.0); Monocytes % 6.1 % (1.7-12.7); Neutrophils % 77.1 % (38.7-73.9); Platelet Count 188 T/CUMM (130-400); Red Blood Count 3.31 MC/CUMM (3.8-5.5); Red Cell Distribution Width 21.2 % (9.3-17.3); White Blood Count 14.1 T/CUMM (4-12)
[2019-03-01] MEDS: LINACLOTIDE 145 MCG CAPSULE PO SCH (08:03)
[2019-03-01] MEDS: HEPARIN LOCK FLUSH 500 UNIT/5 ML SYRINGE IV SCH ×2 (09:21→20:53)
[2019-03-01] MEDS: PANTOPRAZOLE 40 MG VIAL IV SCH (09:21)
[2019-03-01] MEDS: CYPROHEPTADINE 4 MG TABLET PO SCH ×2 (09:22→20:52)
[2019-03-01] MEDS: MULTIVITAMIN (BEROCCA) TABLET PO SCH (09:22)
[2019-03-01] MEDS: DICYCLOMINE 20 MG TABLET PO SCH ×2 (09:22→20:52)
[2019-03-01] MEDS: CALCITRIOL 0.25 MCG CAPSULE PO SCH (09:22)
[2019-03-01] MEDS: ITRACONAZOLE 100 MG CAPSULE PO SCH (09:22)
[2019-03-01] MEDS: DOCUSATE SODIUM 100 MG CAPSULE PO SCH ×2 (09:26→20:52)
[2019-03-01] MEDS: Sucroferric Oxyhydroxide [Velphoro] 500 MG PO SCH ×3 (12:22→16:52)
[2019-03-01] MEDS: POLYETHYLENE GLYCOL POWDER 17 GM PACK PO SCH ×2 (12:22→20:52)
[2019-03-01] MEDS: MEROPENEM 500 MG in SODIUM CHLORIDE 0.9% 100 ML IV SCH (16:50)
[2019-03-01] MEDS: ESCITALOPRAM 10 MG TABLET PO SCH (20:52)
[2019-03-02 06:10] LABS: Basophils % 0.2 % (0.0-0.8); Eosinophils # 0.1 10*3/uL (0.0-0.87); Eosinophils % 0.5 % (0.00-10.9); Hematocrit 26.2 VOL% (35.7-47.0); Hemoglobin 8.7 GM/DL (12.0-16.0); Immature Granulocytes % 1.2 %; Immature Granulocytes Absolute 0.18 #; Lymphocytes # 2.5 10*3/uL (1.4-4.0); Lymphocytes % 16.4 % (21.3-54.2); Mean Corpuscular HGB Conc 33.2 GM/DL (32-36); Mean Corpuscular Volume 78.4 FL (87-102); Mean Platelet Volume 11.3 FL (9.6-12.0); Monocytes % 6.7 % (1.7-12.7); Platelet Count 232 T/CUMM (130-400); Red Blood Count 3.34 MC/CUMM (3.8-5.5); Red Cell Distribution Width 20.6 % (9.3-17.3); White Blood Count 15.3 T/CUMM (4-12)
[2019-03-02 06:49] LABS: Calcium 8.1 MG/DL (8.5-10.1); Osmolality,Calculated 267.1 MOS/KG (273-304)
[2019-03-02] MEDS: HEPARIN LOCK FLUSH 500 UNIT/5 ML SYRINGE IV SCH ×2 (09:04→21:51)
[2019-03-02] MEDS: LINACLOTIDE 145 MCG CAPSULE PO SCH (09:04)
[2019-03-02] MEDS: DOCUSATE SODIUM 100 MG CAPSULE PO SCH ×2 (09:05→21:51)
[2019-03-02] MEDS: MULTIVITAMIN (BEROCCA) TABLET PO SCH (09:05)
[2019-03-02] MEDS: Sucroferric Oxyhydroxide [Velphoro] 500 MG PO SCH ×3 (09:05→16:25)
[2019-03-02] MEDS: POLYETHYLENE GLYCOL POWDER 17 GM PACK PO SCH ×2 (09:05→21:51)
[2019-03-02] MEDS: CALCITRIOL 0.25 MCG CAPSULE PO SCH (09:05)
[2019-03-02] MEDS: CYPROHEPTADINE 4 MG TABLET PO SCH ×2 (09:05→21:51)
[2019-03-02] MEDS: ITRACONAZOLE 100 MG CAPSULE PO SCH (09:05)
[2019-03-02] MEDS: DICYCLOMINE 20 MG TABLET PO SCH ×2 (09:05→21:51)
[2019-03-02] MEDS: HEPARIN 5,000 UNIT/1 ML VIAL SUBCUT SCH ×2 (10:07→16:20)
[2019-03-02] MEDS: PANTOPRAZOLE 40 MG VIAL IV SCH (10:07)
[2019-03-02] MEDS: ACETAMINOPHEN 325 MG TABLET PO PRN (11:00)
[2019-03-02] MEDS: MEROPENEM 500 MG in SODIUM CHLORIDE 0.9% 100 ML IV SCH (16:20)
[2019-03-02] MEDS: ESCITALOPRAM 10 MG TABLET PO SCH (21:51)
[2019-03-03] MEDS: HEPARIN 5,000 UNIT/1 ML VIAL SUBCUT SCH ×3 (00:08→18:12)
[2019-03-03 06:02] LABS: Basophils % 0.3 % (0.0-0.8); Eosinophils # 0.1 10*3/uL (0.0-0.87); Eosinophils % 0.7 % (0.00-10.9); Hematocrit 25.7 VOL% (35.7-47.0); Hemoglobin 8.6 GM/DL (12.0-16.0); Immature Granulocytes % 1.1 %; Immature Granulocytes Absolute 0.13 #; Lymphocytes # 2.1 10*3/uL (1.4-4.0); Mean Corpuscular HGB Conc 33.5 GM/DL (32-36); Mean Corpuscular Volume 78.8 FL (87-102); Mean Platelet Volume 11.2 FL (9.6-12.0); Monocytes % 8.3 % (1.7-12.7); Neutrophils % 71.6 % (38.7-73.9); Platelet Count 254 T/CUMM (130-400); Red Blood Count 3.26 MC/CUMM (3.8-5.5); Red Cell Distribution Width 20.7 % (9.3-17.3); White Blood Count 11.6 T/CUMM (4-12)
[2019-03-03 06:19] LABS: Alanine Aminotransferase < 6 U/L (13-56); Albumin 1.1 G/DL (3.4-5.0); Alkaline Phosphatase 95 U/L (45-117); Aspartate Amino Transferase 15 U/L (0-37); Blood Urea Nitrogen 19 MG/DL (7-18); Calcium 8.6 MG/DL (8.5-10.1); Estimated Glom Filtration Rate 6 ML/MIN; Glucose 54 MG/DL (74-106); Osmolality,Calculated 267.2 MOS/KG (273-304); Total Protein 6.4 G/DL (6.4-8.3)
[2019-03-03 06:25] LABS: Anisocytosis 1+; Hypochromasia 1+; Ovalocytes Slight
[2019-03-03 06:26] LABS: Platelet Estimate Normal; Target Cells Few
[2019-03-03 06:27] LABS: Macrocytosis 1+
[2019-03-03] MEDS: CALCITRIOL 0.25 MCG CAPSULE PO SCH (08:34)
[2019-03-03] MEDS: ITRACONAZOLE 100 MG CAPSULE PO SCH (08:34)
[2019-03-03] MEDS: PANTOPRAZOLE 40 MG VIAL IV SCH (08:34)
[2019-03-03] MEDS: CYPROHEPTADINE 4 MG TABLET PO SCH ×2 (08:34→21:04)
[2019-03-03] MEDS: MULTIVITAMIN (BEROCCA) TABLET PO SCH (08:34)
[2019-03-03] MEDS: DICYCLOMINE 20 MG TABLET PO SCH ×2 (08:34→21:05)
[2019-03-03] MEDS: Sucroferric Oxyhydroxide [Velphoro] 500 MG PO SCH ×3 (11:37→17:05)
[2019-03-03] MEDS: HEPARIN LOCK FLUSH 500 UNIT/5 ML SYRINGE IV SCH ×2 (14:19→21:04)
[2019-03-03] MEDS: DOCUSATE SODIUM 100 MG CAPSULE PO SCH ×2 (14:19→21:05)
[2019-03-03] MEDS: POLYETHYLENE GLYCOL POWDER 17 GM PACK PO SCH ×2 (14:20→21:05)
[2019-03-03] MEDS: LINACLOTIDE 145 MCG CAPSULE PO SCH (17:03)
[2019-03-03] MEDS: MEROPENEM 500 MG in SODIUM CHLORIDE 0.9% 100 ML IV SCH (17:04)
[2019-03-03] MEDS: ESCITALOPRAM 10 MG TABLET PO SCH (21:04)
[2019-03-03] MEDS: ACETAMINOPHEN 325 MG TABLET PO PRN (21:04)
[2019-03-04] MEDS: HEPARIN 5,000 UNIT/1 ML VIAL SUBCUT SCH ×3 (00:47→16:50)
[2019-03-04] MEDS: DOCUSATE SODIUM 100 MG CAPSULE PO SCH ×2 (09:31→21:18)
[2019-03-04] MEDS: ITRACONAZOLE 100 MG CAPSULE PO SCH (09:31)
[2019-03-04] MEDS: CYPROHEPTADINE 4 MG TABLET PO SCH ×2 (09:31→21:18)
[2019-03-04] MEDS: MULTIVITAMIN (BEROCCA) TABLET PO SCH (09:31)
[2019-03-04] MEDS: CALCITRIOL 0.25 MCG CAPSULE PO SCH (09:31)
[2019-03-04] MEDS: POLYETHYLENE GLYCOL POWDER 17 GM PACK PO SCH ×2 (09:31→21:19)
[2019-03-04] MEDS: HEPARIN LOCK FLUSH 500 UNIT/5 ML SYRINGE IV SCH ×2 (09:32→21:18)
[2019-03-04] MEDS: DICYCLOMINE 20 MG TABLET PO SCH ×2 (09:33→21:18)
[2019-03-04] MEDS: PANTOPRAZOLE 40 MG VIAL IV SCH (13:00)
[2019-03-04] MEDS: Sucroferric Oxyhydroxide [Velphoro] 500 MG PO SCH ×2 (14:48→17:02)
[2019-03-04] MEDS: LINACLOTIDE 145 MCG CAPSULE PO SCH (15:56)
[2019-03-04] MEDS: MEROPENEM 500 MG in SODIUM CHLORIDE 0.9% 100 ML IV SCH (16:49)
[2019-03-04] MEDS: MORPHINE 4 MG/1 ML VIAL IV PRN (16:49)
[2019-03-04] MEDS: ESCITALOPRAM 10 MG TABLET PO SCH (21:18)
[2019-03-05] MEDS: HEPARIN 5,000 UNIT/1 ML VIAL SUBCUT SCH ×2 (00:59→08:18)
[2019-03-05 06:22] LABS: Basophils # 0.1 10*3/uL (0.0-0.2); Basophils % 0.5 % (0.0-0.8); Eosinophils # 0.1 10*3/uL (0.0-0.87); Hemoglobin 8.5 GM/DL (12.0-16.0); Immature Granulocytes % 0.7 %; Immature Granulocytes Absolute 0.07 #; Lymphocytes # 2.1 10*3/uL (1.4-4.0); Lymphocytes % 21.6 % (21.3-54.2); Mean Corpuscular HGB Conc 32.7 GM/DL (32-36); Mean Platelet Volume 10.7 FL (9.6-12.0); Neutrophils % 65.2 % (38.7-73.9); Platelet Count 270 T/CUMM (130-400); Red Blood Count 3.29 MC/CUMM (3.8-5.5); White Blood Count 9.7 T/CUMM (4-12)
[2019-03-05 06:44] LABS: Calcium 8.8 MG/DL (8.5-10.1); Osmolality,Calculated 269.2 MOS/KG (273-304)
[2019-03-05] MEDS: LINACLOTIDE 145 MCG CAPSULE PO SCH (07:29)
[2019-03-05] MEDS: Sucroferric Oxyhydroxide [Velphoro] 500 MG PO SCH ×2 (07:32→13:05)
[2019-03-05] MEDS: DICYCLOMINE 20 MG TABLET PO SCH (08:18)
[2019-03-05] MEDS: POLYETHYLENE GLYCOL POWDER 17 GM PACK PO SCH (08:18)
[2019-03-05] MEDS: PANTOPRAZOLE 40 MG VIAL IV SCH (08:18)
[2019-03-05] MEDS: HEPARIN LOCK FLUSH 500 UNIT/5 ML SYRINGE IV SCH (08:18)
[2019-03-05] MEDS: CYPROHEPTADINE 4 MG TABLET PO SCH (08:19)
[2019-03-05] MEDS: CALCITRIOL 0.25 MCG CAPSULE PO SCH (08:19)
[2019-03-05] MEDS: DOCUSATE SODIUM 100 MG CAPSULE PO SCH (08:19)
[2019-03-05] MEDS: MULTIVITAMIN (BEROCCA) TABLET PO SCH (08:22)
[2019-03-05 09:40] LABS: Total Protein 6.7 G/DL (6.4-8.3)
[2019-03-05 09:55] LABS: Immunoglobulin A 533 MG/DL (70-400); Immunoglobulin G 2350 MG/DL (700-1600)
[2019-03-05] MEDS ORDERED: FERRIC GLUCONATE COMPLEX 125 MG in SODIUM CHLORIDE 0.9% 100 ML IV ONE (15:30)
[2019-03-05] MEDS: MORPHINE 4 MG/1 ML VIAL IV PRN (15:42)
[2019-03-05 16:32] VITALS: BP 111/69
[2019-03-06 07:55] LABS: Total Protein (Chem) 6.7 G/DL (6.4-8.3)
[2019-03-06 09:24] LABS: Albumin (SPE) Rel % 29.9 %; Alpha 1 (SPE) 0.3 G/DL (0.1-0.4); Alpha 2 (SPE) 0.8 G/DL (0.4-1.0); Alpha 2 (SPE) Rel % 11.9 %; Beta (SPE) Rel % 18.6 %; Gamma (SPE) 2.3 G/DL (0.7-1.7); Gamma (SPE) Rel % 34.6 %
[2019-03-06 09:25] LABS: Beta (SPE) 1.2 G/DL (0.5-1.1)
[2019-03-06 09:46] LABS: Immunoglobulin A (Chem) 523 MG/DL (70-400); Immunoglobulin G (Chem) 2200 MG/DL (700-1600); Immunoglobulin M (Chem) 47 MG/DL (40-230)
[2019-03-06 10:06] LABS: Immuno Free Light Chain Kappa 54.22 MG/DL (0.33-1.94); Immuno Free Light Chain Ratio 1.96 MG/DL (0.26-1.65)
== END 2019-03-05 17:16 | DRG 853 ==
LOC: EDBD → EDUNIT# → N.EDINP 13:35 → N.ED 13:35 → SUATTDRO 16:00 → N.EDINP 18:15 → N.4E 18:51 → SUATTDRO 02-21 16:13 → N.CC 02-23 11:27 → N.5E 02-25 17:59
PROVIDERS: ADMIT Emergency Medicine; ATTEND Internal Medicine

== ENCOUNTER 2019-03-19 15:59 | Inpatient (IN) ==
[2019-03-19] MEDS ORDERED: SODIUM CHLORIDE 0.9% 500 ML IV STA (16:21)
[2019-03-19 16:38] LABS: Basophils % 0.2 % (0.0-0.8); Eosinophils # 0.1 10*3/uL (0.0-0.87); Eosinophils % 0.4 % (0.00-10.9); Hematocrit 30.1 VOL% (35.7-47.0); Hemoglobin 9.5 GM/DL (12.0-16.0); Immature Granulocytes % 0.5 %; Immature Granulocytes Absolute 0.07 #; Lymphocytes % 14.6 % (21.3-54.2); Mean Corpuscular HGB Conc 31.6 GM/DL (32-36); Mean Corpuscular Volume 81.6 FL (87-102); Mean Platelet Volume 11.8 FL (9.6-12.0); Monocytes % 10.7 % (1.7-12.7); Neutrophils % 73.6 % (38.7-73.9); Platelet Count 226 T/CUMM (130-400); Red Blood Count 3.69 MC/CUMM (3.8-5.5); Red Cell Distribution Width 19.9 % (9.3-17.3); White Blood Count 13.9 T/CUMM (4-12)
[2019-03-19 17:25] LABS: Albumin 1.4 G/DL (3.4-5.0); Bilirubin,Total 0.4 MG/DL (0.2-1.0); Calcium 9.5 MG/DL (8.5-10.1); Osmolality,Calculated 272.2 MOS/KG (273-304); Total Protein 7.5 G/DL (6.4-8.3)
[2019-03-19] MEDS ORDERED: MEROPENEM 500 MG in SODIUM CHLORIDE 0.9% 100 ML IV ONE (18:16)
[2019-03-19] MEDS ORDERED: ONDANSETRON 4 MG/2 ML VIAL IV PRN (18:22)
[2019-03-19] MEDS ORDERED: SODIUM CHLORIDE 0.9% 1,000 ML IV ONE (18:22)
[2019-03-19] MEDS ORDERED: LACTULOSE 20 GM/30 ML UDCUP PO PRN (18:22)
[2019-03-19] MEDS ORDERED: ALBUTEROL 2.5 MG/3 ML NEB RESP TX PRN (18:22)
[2019-03-19] MEDS ORDERED: ACETAMINOPHEN 325 MG TABLET PO PRN ×2 (18:22→18:31)
[2019-03-19] MEDS ORDERED: LACTATED RINGERS 500 ML IV ONE (18:25)
[2019-03-19] MEDS: FAMOTIDINE 20 MG/2 ML VIAL IV SCH (21:16)
[2019-03-19] MEDS: ESCITALOPRAM 10 MG TABLET PO SCH (21:16)
[2019-03-19] MEDS: SODIUM CHLORIDE 0.9% 1,000 ML IV SCH (21:19)
[2019-03-19] MEDS ORDERED: POTASSIUM CHLORIDE 20 MEQ TABLET PO ONE (21:39)
[2019-03-20] MEDS: SODIUM CHLORIDE 0.9% 1,000 ML IV SCH ×3 (04:24→19:56)
[2019-03-20 05:11] LABS: INR 1.1
[2019-03-20 05:13] LABS: Basophils % 0.3 % (0.0-0.8); Eosinophils # 0.1 10*3/uL (0.0-0.87); Eosinophils % 0.6 % (0.00-10.9); Hematocrit 26.8 VOL% (35.7-47.0); Hemoglobin 8.5 GM/DL (12.0-16.0); Immature Granulocytes % 0.6 %; Immature Granulocytes Absolute 0.07 #; Lymphocytes % 16.3 % (21.3-54.2); Mean Corpuscular HGB Conc 31.7 GM/DL (32-36); Mean Platelet Volume 11.9 FL (9.6-12.0); Monocytes % 10.7 % (1.7-12.7); Neutrophils % 71.5 % (38.7-73.9); Platelet Count 209 T/CUMM (130-400); Red Blood Count 3.31 MC/CUMM (3.8-5.5); Red Cell Distribution Width 19.9 % (9.3-17.3)
[2019-03-20 05:27] LABS: Calcium 8.7 MG/DL (8.5-10.1)
[2019-03-20 05:28] LABS: Albumin 1.1 G/DL (3.4-5.0); Bilirubin,Total 0.4 MG/DL (0.2-1.0); Osmolality,Calculated 274.1 MOS/KG (273-304); Total Protein 6.2 G/DL (6.4-8.3)
[2019-03-20] MEDS: FAMOTIDINE 20 MG/2 ML VIAL IV SCH (06:04)
[2019-03-20] MEDS ORDERED: PANTOPRAZOLE 40 MG TABLET PO SCH (09:00)
[2019-03-20] MEDS ORDERED: propofoL 200 MG/20 ML VIAL IV ONE (13:54)
[2019-03-20] MEDS ORDERED: SEVOFLURANE 1 UNIT/15 MINUTE INH ONE (13:54)
[2019-03-20] MEDS ORDERED: LIDOCAINE 2% 5 ML VIAL ONE (13:54)
[2019-03-20] MEDS ORDERED: HYDROmorphone 2 MG/1 ML VIAL ONE (14:03)
[2019-03-20] MEDS ORDERED: ONDANSETRON 4 MG/2 ML VIAL ONE (14:03)
[2019-03-20] MEDS ORDERED: HYDROmorphone 2 MG/1 ML VIAL IV PRN (14:05)
[2019-03-20] MEDS ORDERED: ONDANSETRON 4 MG/2 ML VIAL IV PRN (14:05)
[2019-03-20] MEDS: calcitrioL 0.25 MCG CAPSULE PO SCH (15:29)
[2019-03-20] MEDS: PANTOPRAZOLE 40 MG TABLET PO SCH (15:29)
[2019-03-20] MEDS: HYDROmorphone 2 MG/1 ML VIAL IV PRN ×3 (15:29→18:38)
[2019-03-20] MEDS ORDERED: HEPARIN 10,000 UNIT/10 ML VIAL IV PRN (17:21)
[2019-03-20] MEDS ORDERED: MEROPENEM 500 MG in SODIUM CHLORIDE 0.9% 100 ML IV SCH (18:30)
[2019-03-20] MEDS: NOREPINEPHRINE 8 MG in SODIUM CHLORIDE 0.9% 242 ML IV SCH (19:11)
[2019-03-20] MEDS ORDERED: POLYETHYLENE GLYCOL POWDER 17 GM PACK PO PRN (19:18)
[2019-03-20] MEDS: ESCITALOPRAM 10 MG TABLET PO SCH (20:03)
[2019-03-21] MEDS: SODIUM CHLORIDE 0.9% 1,000 ML IV SCH ×4 (04:00→17:58)
[2019-03-21 06:24] LABS: Basophils % 0.3 % (0.0-0.8); Eosinophils # 0.1 10*3/uL (0.0-0.87); Eosinophils % 0.8 % (0.00-10.9); Hematocrit 24.6 VOL% (35.7-47.0); Hemoglobin 7.8 GM/DL (12.0-16.0); Immature Granulocytes % 0.6 %; Immature Granulocytes Absolute 0.06 #; Lymphocytes % 18.7 % (21.3-54.2); Mean Corpuscular HGB Conc 31.7 GM/DL (32-36); Mean Corpuscular Volume 80.9 FL (87-102); Mean Platelet Volume 12.2 FL (9.6-12.0); Monocytes % 13.7 % (1.7-12.7); Neutrophils % 65.9 % (38.7-73.9); Platelet Count 185 T/CUMM (130-400); Red Blood Count 3.04 MC/CUMM (3.8-5.5); Red Cell Distribution Width 19.9 % (9.3-17.3); White Blood Count 10.7 T/CUMM (4-12)
[2019-03-21 06:44] LABS: Alanine Aminotransferase 13 U/L (13-56); Albumin 1.1 G/DL (3.4-5.0); Alkaline Phosphatase 94 U/L (45-117); Aspartate Amino Transferase 19 U/L (0-37); Bilirubin,Total < 0.39 MG/DL (0.2-1.0); Blood Urea Nitrogen 19 MG/DL (7-18); Calcium 8.4 MG/DL (8.5-10.1); Estimated Glom Filtration Rate 9 ML/MIN; Glucose 63 MG/DL (74-106); Osmolality,Calculated 272.8 MOS/KG (273-304); Total Protein 5.7 G/DL (6.4-8.3)
[2019-03-21] MEDS: DEXTROSE 10% 25 GM/250 ML BAG IV PRN (07:47)
[2019-03-21] MEDS ORDERED: IMMUNE GLOBULIN 10% 20 GM in PREMIX 1 EACH IV ONE (08:21)
[2019-03-21] MEDS: LINACLOTIDE 145 MCG CAPSULE PO SCH (08:22)
[2019-03-21] MEDS: MULTIVITAMIN (BEROCCA) TABLET PO SCH (08:22)
[2019-03-21] MEDS: PANTOPRAZOLE 40 MG TABLET PO SCH (08:22)
[2019-03-21] MEDS: calcitrioL 0.25 MCG CAPSULE PO SCH (08:22)
[2019-03-21] MEDS ORDERED: FAMOTIDINE 20 MG/2 ML VIAL IV SCH (09:00)
[2019-03-21] MEDS ORDERED: POTASSIUM CHLORIDE 20 MEQ TABLET PO ONE (11:09)
[2019-03-21] MEDS ORDERED: cefTRIAXone 1,000 MG in SYRINGE 1 EACH IV SCH (15:00)
[2019-03-21] MEDS: HYDROmorphone 2 MG/1 ML VIAL IV PRN (16:26)
[2019-03-21] MEDS: NOREPINEPHRINE 8 MG in SODIUM CHLORIDE 0.9% 242 ML IV SCH (17:58)
[2019-03-21] MEDS: ESCITALOPRAM 10 MG TABLET PO SCH (21:12)
[2019-03-22] MEDS: SODIUM CHLORIDE 0.9% 1,000 ML IV SCH (03:58)
[2019-03-22 07:05] LABS: Basophils % 0.3 % (0.0-0.8); Eosinophils # 0.1 10*3/uL (0.0-0.87); Hematocrit 26.6 VOL% (35.7-47.0); Hemoglobin 8.3 GM/DL (12.0-16.0); Immature Granulocytes % 0.6 %; Immature Granulocytes Absolute 0.07 #; Lymphocytes # 1.8 10*3/uL (1.4-4.0); Lymphocytes % 15.8 % (21.3-54.2); Mean Corpuscular HGB Conc 31.2 GM/DL (32-36); Mean Corpuscular Volume 81.1 FL (87-102); Mean Platelet Volume 11.2 FL (9.6-12.0); Monocytes % 12.7 % (1.7-12.7); Neutrophils % 69.6 % (38.7-73.9); Platelet Count 197 T/CUMM (130-400); Red Blood Count 3.28 MC/CUMM (3.8-5.5); Red Cell Distribution Width 20.1 % (9.3-17.3); White Blood Count 11.2 T/CUMM (4-12)
[2019-03-22 07:36] LABS: Bilirubin,Total 0.5 MG/DL (0.2-1.0); Calcium 8.7 MG/DL (8.5-10.1); Osmolality,Calculated 284.1 MOS/KG (273-304)
[2019-03-22] MEDS: MULTIVITAMIN (BEROCCA) TABLET PO SCH (10:34)
[2019-03-22] MEDS: PANTOPRAZOLE 40 MG TABLET PO SCH (10:34)
[2019-03-22] MEDS: calcitrioL 0.25 MCG CAPSULE PO SCH (10:34)
[2019-03-22] MEDS: LINACLOTIDE 145 MCG CAPSULE PO SCH (11:00)
[2019-03-22] MEDS: MEROPENEM 500 MG in SODIUM CHLORIDE 0.9% 100 ML IV SCH (18:17)
[2019-03-22] MEDS: ESCITALOPRAM 10 MG TABLET PO SCH (21:19)
[2019-03-23 05:10] LABS: Basophils % 0.4 % (0.0-0.8); Eosinophils # 0.1 10*3/uL (0.0-0.87); Eosinophils % 1.4 % (0.00-10.9); Hematocrit 24.5 VOL% (35.7-47.0); Hemoglobin 7.9 GM/DL (12.0-16.0); Immature Granulocytes % 0.5 %; Immature Granulocytes Absolute 0.04 #; Lymphocytes # 1.8 10*3/uL (1.4-4.0); Lymphocytes % 23.3 % (21.3-54.2); Mean Corpuscular HGB Conc 32.2 GM/DL (32-36); Mean Corpuscular Volume 79.5 FL (87-102); Mean Platelet Volume 11.2 FL (9.6-12.0); Monocytes % 10.8 % (1.7-12.7); Neutrophils % 63.6 % (38.7-73.9); Platelet Count 166 T/CUMM (130-400); Red Blood Count 3.08 MC/CUMM (3.8-5.5); Red Cell Distribution Width 19.8 % (9.3-17.3); White Blood Count 7.8 T/CUMM (4-12)
[2019-03-23 05:41] LABS: Calcium 8.3 MG/DL (8.5-10.1)
[2019-03-23] MEDS ORDERED: MAGNESIUM SULF RIDER 2 GM in PREMIX 1 EACH IV PRN (08:52)
[2019-03-23] MEDS ORDERED: MAGNESIUM SULF RIDER 4 GM in PREMIX 1 EACH IV PRN (08:52)
[2019-03-23] MEDS: PANTOPRAZOLE 40 MG TABLET PO SCH (09:00)
[2019-03-23] MEDS: calcitrioL 0.25 MCG CAPSULE PO SCH (09:00)
[2019-03-23] MEDS: MULTIVITAMIN (BEROCCA) TABLET PO SCH (09:00)
[2019-03-23] MEDS: LINACLOTIDE 145 MCG CAPSULE PO SCH (09:00)
[2019-03-23] MEDS: HYDROmorphone 2 MG/1 ML VIAL IV PRN ×2 (10:26→21:55)
[2019-03-23] MEDS: SODIUM CHLORIDE 0.9% 1,000 ML IV SCH (11:11)
[2019-03-23] MEDS: MEROPENEM 500 MG in SODIUM CHLORIDE 0.9% 100 ML IV SCH (16:54)
[2019-03-23] MEDS: ESCITALOPRAM 10 MG TABLET PO SCH (23:19)
[2019-03-24 05:48] LABS: Basophils % 0.4 % (0.0-0.8); Eosinophils # 0.1 10*3/uL (0.0-0.87); Eosinophils % 1.8 % (0.00-10.9); Hematocrit 25.1 VOL% (35.7-47.0); Hemoglobin 8.1 GM/DL (12.0-16.0); Immature Granulocytes % 0.3 %; Immature Granulocytes Absolute 0.02 #; Lymphocytes # 1.7 10*3/uL (1.4-4.0); Lymphocytes % 23.8 % (21.3-54.2); Mean Corpuscular HGB Conc 32.3 GM/DL (32-36); Mean Corpuscular Volume 78.7 FL (87-102); Mean Platelet Volume 11.1 FL (9.6-12.0); Monocytes % 11.9 % (1.7-12.7); Neutrophils % 61.8 % (38.7-73.9); Platelet Count 180 T/CUMM (130-400); Red Blood Count 3.19 MC/CUMM (3.8-5.5); Red Cell Distribution Width 19.7 % (9.3-17.3); White Blood Count 7.1 T/CUMM (4-12)
[2019-03-24 06:00] LABS: Calcium 9.1 MG/DL (8.5-10.1); Osmolality,Calculated 276.7 MOS/KG (273-304)
[2019-03-24 06:04] LABS: Bilirubin,Total 0.4 MG/DL (0.2-1.0); Calcium 8.9 MG/DL (8.5-10.1); Osmolality,Calculated 279.4 MOS/KG (273-304); Total Protein 5.9 G/DL (6.4-8.3)
[2019-03-24 06:11] LABS: Hypochromasia 1+
[2019-03-24 06:12] LABS: Anisocytosis 1+; Microcytosis 1+; Ovalocytes Slight; Target Cells Few
[2019-03-24 06:13] LABS: Platelet Estimate Adequate
[2019-03-24] MEDS: MULTIVITAMIN (BEROCCA) TABLET PO SCH (09:16)
[2019-03-24] MEDS: calcitrioL 0.25 MCG CAPSULE PO SCH (09:16)
[2019-03-24] MEDS: PANTOPRAZOLE 40 MG TABLET PO SCH (09:17)
[2019-03-24] MEDS: LINACLOTIDE 145 MCG CAPSULE PO SCH (09:17)
[2019-03-24] MEDS: MEROPENEM 500 MG in SODIUM CHLORIDE 0.9% 100 ML IV SCH (16:06)
[2019-03-24] MEDS: ESCITALOPRAM 10 MG TABLET PO SCH (21:36)
[2019-03-25 05:50] LABS: Basophils % 0.3 % (0.0-0.8); Eosinophils # 0.1 10*3/uL (0.0-0.87); Eosinophils % 1.5 % (0.00-10.9); Hematocrit 23.8 VOL% (35.7-47.0); Hemoglobin 7.7 GM/DL (12.0-16.0); Immature Granulocytes % 0.4 %; Immature Granulocytes Absolute 0.03 #; Lymphocytes # 2.4 10*3/uL (1.4-4.0); Lymphocytes % 32.7 % (21.3-54.2); Mean Corpuscular HGB Conc 32.4 GM/DL (32-36); Mean Corpuscular Volume 77.5 FL (87-102); Mean Platelet Volume 11.1 FL (9.6-12.0); Neutrophils % 51.1 % (38.7-73.9); Platelet Count 212 T/CUMM (130-400); Red Blood Count 3.07 MC/CUMM (3.8-5.5); Red Cell Distribution Width 19.4 % (9.3-17.3); White Blood Count 7.3 T/CUMM (4-12)
[2019-03-25 06:12] LABS: Alanine Aminotransferase < 9 U/L (13-56); Alkaline Phosphatase 138 U/L (45-117); Aspartate Amino Transferase 19 U/L (0-37); Blood Urea Nitrogen 38 MG/DL (7-18); Calcium 9.4 MG/DL (8.5-10.1); Estimated Glom Filtration Rate 6 ML/MIN; Glucose 63 MG/DL (74-106); Osmolality,Calculated 287.3 MOS/KG (273-304)
[2019-03-25 06:17] LABS: Eosinophils 2 % (0-10); Hypochromasia 1+; Lymphocytes 18 % (20-55); Platelet Estimate Adequate; Segmented Neutrophils 70 % (50-85); Target Cells Few; Total Cells Counted 100
[2019-03-25 06:18] LABS: Microcytosis Slight
[2019-03-25] MEDS ORDERED: IMMUNE GLOBULIN 10% 20 GM in PREMIX 1 EACH IV ONE (08:00)
[2019-03-25] MEDS ORDERED: SODIUM CHLORIDE 0.9% 1,000 ML IV PRN (08:20)
[2019-03-25] MEDS: DEXTROSE 10% 25 GM/250 ML BAG IV PRN (08:45)
[2019-03-25] MEDS: LINACLOTIDE 145 MCG CAPSULE PO SCH (09:56)
[2019-03-25] MEDS: PANTOPRAZOLE 40 MG TABLET PO SCH (09:56)
[2019-03-25] MEDS: calcitrioL 0.25 MCG CAPSULE PO SCH (09:56)
[2019-03-25] MEDS: MULTIVITAMIN (BEROCCA) TABLET PO SCH (09:56)
[2019-03-25] MEDS: MEROPENEM 500 MG in SODIUM CHLORIDE 0.9% 100 ML IV SCH (18:13)
[2019-03-25] MEDS: ESCITALOPRAM 10 MG TABLET PO SCH (20:54)
[2019-03-26 04:45] LABS: Basophils % 0.2 % (0.0-0.8); Eosinophils % 0.8 % (0.00-10.9); Hematocrit 32.7 VOL% (35.7-47.0); Hemoglobin 10.9 GM/DL (12.0-16.0); Immature Granulocytes % 0.6 %; Immature Granulocytes Absolute 0.03 #; Lymphocytes # 1.1 10*3/uL (1.4-4.0); Lymphocytes % 20.2 % (21.3-54.2); Mean Corpuscular HGB Conc 33.3 GM/DL (32-36); Monocytes % 2.1 % (1.7-12.7); Neutrophils % 76.1 % (38.7-73.9); Platelet Count 125 T/CUMM (130-400); Red Blood Count 4.19 MC/CUMM (3.8-5.5); Red Cell Distribution Width 20.1 % (9.3-17.3); White Blood Count 5.3 T/CUMM (4-12)
[2019-03-26 05:14] LABS: Albumin 1.1 G/DL (3.4-5.0); Calcium 9.3 MG/DL (8.5-10.1); Osmolality,Calculated 280.7 MOS/KG (273-304); Total Protein 6.9 G/DL (6.4-8.3)
[2019-03-26 05:15] LABS: Band Neutrophils 5 % (0-10); Hypochromasia Slight; Lymphocytes 15 % (20-55); Microcytosis Slight; Ovalocytes Slight; Segmented Neutrophils 77 % (50-85); Total Cells Counted 100
[2019-03-26 05:16] LABS: Target Cells Few
[2019-03-26] MEDS: MULTIVITAMIN (BEROCCA) TABLET PO SCH (08:19)
[2019-03-26] MEDS: LINACLOTIDE 145 MCG CAPSULE PO SCH (08:19)
[2019-03-26] MEDS: PANTOPRAZOLE 40 MG TABLET PO SCH (08:19)
[2019-03-26] MEDS: DEXTROSE 10% 250 ML BAG IV PRN ×2 (08:20→16:07)
[2019-03-26] MEDS ORDERED: SODIUM CHLORIDE 0.9% 500 ML IV ONE (09:50)
[2019-03-26] MEDS: MEROPENEM 500 MG in SODIUM CHLORIDE 0.9% 100 ML IV SCH (16:07)
[2019-03-26] MEDS: HYDROmorphone 2 MG/1 ML VIAL IV PRN (21:49)
[2019-03-26] MEDS: ESCITALOPRAM 10 MG TABLET PO SCH (21:49)
[2019-03-27 06:31] LABS: Alanine Aminotransferase < 9 U/L (13-56); Albumin 0.8 G/DL (3.4-5.0); Alkaline Phosphatase 111 U/L (45-117); Aspartate Amino Transferase 30 U/L (0-37); Blood Urea Nitrogen 37 MG/DL (7-18); Calcium 9.7 MG/DL (8.5-10.1); Estimated Glom Filtration Rate 6 ML/MIN; Glucose 63 MG/DL (74-106); Osmolality,Calculated 272.4 MOS/KG (273-304); Total Protein 5.7 G/DL (6.4-8.3)
[2019-03-27] MEDS: PANTOPRAZOLE 40 MG TABLET PO SCH (08:49)
[2019-03-27] MEDS: MULTIVITAMIN (BEROCCA) TABLET PO SCH (08:49)
[2019-03-27] MEDS: LINACLOTIDE 145 MCG CAPSULE PO SCH (08:49)
[2019-03-27] MEDS: MEROPENEM 500 MG in SODIUM CHLORIDE 0.9% 100 ML IV SCH (17:25)
[2019-03-27] MEDS: ESCITALOPRAM 10 MG TABLET PO SCH (20:49)
[2019-03-28 06:07] LABS: Alanine Aminotransferase < 9 U/L (13-56); Albumin 0.7 G/DL (3.4-5.0); Alkaline Phosphatase 113 U/L (45-117); Aspartate Amino Transferase 35 U/L (0-37); Bilirubin,Total < 0.39 MG/DL (0.2-1.0); Blood Urea Nitrogen 28 MG/DL (7-18); Calcium 9.3 MG/DL (8.5-10.1); Estimated Glom Filtration Rate 7 ML/MIN; Glucose 60 MG/DL (74-106); Osmolality,Calculated 269.4 MOS/KG (273-304); Total Protein 5.7 G/DL (6.4-8.3)
[2019-03-28 09:04] LABS: Immunoglobulin A 499 MG/DL (70-400); Immunoglobulin G 2250 MG/DL (700-1600); Immunoglobulin M 42 MG/DL (40-230); Total Protein 5.7 G/DL (6.4-8.3)
[2019-03-28] MEDS: PANTOPRAZOLE 40 MG TABLET PO SCH (09:08)
[2019-03-28] MEDS: MULTIVITAMIN (BEROCCA) TABLET PO SCH (09:08)
[2019-03-28] MEDS: LINACLOTIDE 145 MCG CAPSULE PO SCH (09:08)
[2019-03-28] MEDS: MEROPENEM 500 MG in SODIUM CHLORIDE 0.9% 100 ML IV SCH (18:13)
[2019-03-28] MEDS: ESCITALOPRAM 10 MG TABLET PO SCH (21:17)
[2019-03-29 05:57] LABS: Alanine Aminotransferase < 6 U/L (13-56); Albumin 0.9 G/DL (3.4-5.0); Alkaline Phosphatase 114 U/L (45-117); Aspartate Amino Transferase 31 U/L (0-37); Blood Urea Nitrogen 34 MG/DL (7-18); Calcium 9.6 MG/DL (8.5-10.1); Estimated Glom Filtration Rate 6 ML/MIN; Glucose 60 MG/DL (74-106); Osmolality,Calculated 269.5 MOS/KG (273-304); Total Protein 5.8 G/DL (6.4-8.3)
[2019-03-29] MEDS: MULTIVITAMIN (BEROCCA) TABLET PO SCH (09:18)
[2019-03-29] MEDS: LINACLOTIDE 145 MCG CAPSULE PO SCH (09:18)
[2019-03-29] MEDS: PANTOPRAZOLE 40 MG TABLET PO SCH (09:18)
[2019-03-29] MEDS: MEROPENEM 500 MG in SODIUM CHLORIDE 0.9% 100 ML IV SCH (18:05)
[2019-03-29] MEDS: ESCITALOPRAM 10 MG TABLET PO SCH (20:38)
[2019-03-30] MEDS: LINACLOTIDE 145 MCG CAPSULE PO SCH (08:23)
[2019-03-30] MEDS: MULTIVITAMIN (BEROCCA) TABLET PO SCH (08:23)
[2019-03-30] MEDS: PANTOPRAZOLE 40 MG TABLET PO SCH (08:23)
[2019-03-30] MEDS: ESCITALOPRAM 10 MG TABLET PO SCH (20:16)
[2019-03-31 07:39] LABS: Total Protein (Chem) 5.7 G/DL (6.4-8.3)
[2019-03-31 07:40] LABS: Immunoglobulin A (Chem) 499 MG/DL (70-400); Immunoglobulin G (Chem) 2250 MG/DL (700-1600); Immunoglobulin M (Chem) 42 MG/DL (40-230)
[2019-03-31 08:43] LABS: Albumin (SPE) 1.6 G/DL (3.2-5.3); Albumin (SPE) Rel % 27.6 %; Alpha 1 (SPE) 0.2 G/DL (0.1-0.4); Alpha 1 (SPE) Rel % 4.1 %; Alpha 2 (SPE) 0.6 G/DL (0.4-1.0); Alpha 2 (SPE) Rel % 10.4 %; Beta (SPE) Rel % 14.5 %; Gamma (SPE) 2.5 G/DL (0.7-1.7); Gamma (SPE) Rel % 43.4 %
[2019-03-31 08:57] LABS: Beta (SPE) 0.8 G/DL (0.5-1.1)
[2019-03-31] MEDS: LINACLOTIDE 145 MCG CAPSULE PO SCH (09:39)
[2019-03-31] MEDS: PANTOPRAZOLE 40 MG TABLET PO SCH (09:39)
[2019-03-31] MEDS: MULTIVITAMIN (BEROCCA) TABLET PO SCH (09:39)
[2019-03-31 12:57] VITALS: BP 103/70
[2019-04-01 10:07] LABS: Immuno Free Light Chain Kappa 39.72 MG/DL (0.33-1.94); Immuno Free Light Chain Lambda 32.31 MG/DL (0.57-2.63); Immuno Free Light Chain Ratio 1.23 MG/DL (0.26-1.65)
== END 2019-03-31 14:40 | DRG 856 ==
LOC: EDUNIT# → EDBD → N.ED 15:59 → N.EDINP 18:22 → SUATTDRO 18:22 → N.ICU 19:32 → N.5E 03-22 05:55
PROVIDERS: ADMIT Family Medicine; ATTEND Internal Medicine

== ENCOUNTER 2019-04-04 13:58 | Inpatient (IN) ==
[2019-04-04] MEDS ORDERED: DICYCLOMINE 20 MG/2 ML AMP IM ONE (14:18)
[2019-04-04] MEDS ORDERED: ONDANSETRON 4 MG/2 ML VIAL IV STA (14:18)
[2019-04-04] MEDS ORDERED: PANTOPRAZOLE 40 MG VIAL IV STA (14:18)
[2019-04-04] MEDS ORDERED: METOCLOPRAMIDE 10 MG/2 ML VIAL IV STA (14:18)
[2019-04-04 14:47] LABS: Basophils % 0.2 % (0.0-0.8); Hematocrit 27.1 VOL% (35.7-47.0); Hemoglobin 8.8 GM/DL (12.0-16.0); Immature Granulocytes % 0.5 %; Immature Granulocytes Absolute 0.07 #; Lymphocytes # 1.3 10*3/uL (1.4-4.0); Lymphocytes % 8.8 % (21.3-54.2); Mean Corpuscular HGB Conc 32.5 GM/DL (32-36); Mean Corpuscular Volume 78.3 FL (87-102); Mean Platelet Volume 11.1 FL (9.6-12.0); Monocytes % 9.1 % (1.7-12.7); Neutrophils % 81.4 % (38.7-73.9); Platelet Count 239 T/CUMM (130-400); Red Blood Count 3.46 MC/CUMM (3.8-5.5); Red Cell Distribution Width 19.8 % (9.3-17.3); White Blood Count 14.4 T/CUMM (4-12)
[2019-04-04 14:56] LABS: INR 1.2; PT Patient Result 12.7 SECS (9.6-12.2); Partial Thromboplastin Time 26.2 SECS (20.8-36.0)
[2019-04-04 15:11] LABS: Alanine Aminotransferase < 9 U/L (13-56); Albumin 1.3 G/DL (3.4-5.0); Alkaline Phosphatase 125 U/L (45-117); Amylase 131 U/L (25-115); Aspartate Amino Transferase 41 U/L (0-37); Blood Urea Nitrogen 5 MG/DL (7-18); Calcium 8.7 MG/DL (8.5-10.1); Estimated Glom Filtration Rate 15 ML/MIN; Glucose 87 MG/DL (74-106); Osmolality,Calculated 263.2 MOS/KG (273-304); Total Protein 7.3 G/DL (6.4-8.3); Troponin I 0.057 NG/ML (0.00-0.045)
[2019-04-04] MEDS ORDERED: metroNIDAZOLE INJ 500 MG in PREMIX 1 EACH IV STA (15:50)
[2019-04-04] MEDS ORDERED: cefTRIAXone 1,000 MG in SODIUM CHLORIDE 0.9% 100 ML IV STA (15:50)
[2019-04-04] MEDS ORDERED: SODIUM CHLORIDE 0.9% 500 ML IV STA (21:18)
[2019-04-04] MEDS ORDERED: VANCOMYCIN INJ 500 MG in SODIUM CHLORIDE 0.9% 100 ML IV PRN (21:51)
[2019-04-04] MEDS ORDERED: VANCOMYCIN INJ 1,500 MG in SODIUM CHLORIDE 0.9% 500 ML IV ONE (22:00)
[2019-04-04] MEDS ORDERED: ALBUTEROL 2.5 MG/3 ML NEB RESP TX PRN (22:32)
[2019-04-04] MEDS ORDERED: POLYETHYLENE GLYCOL POWDER 17 GM PACK PO PRN (22:32)
[2019-04-04] MEDS ORDERED: DOCUSATE SODIUM 100 MG CAPSULE PO PRN (22:32)
[2019-04-04] MEDS ORDERED: PROMETHAZINE 25 MG/1 ML VIAL IM PRN (22:32)
[2019-04-04] MEDS ORDERED: ONDANSETRON 4 MG/2 ML VIAL IV PRN (22:32)
[2019-04-04] MEDS ORDERED: POMALIDOMIDE 3 MG PO SCH (23:00)
[2019-04-04] MEDS: ESCITALOPRAM 10 MG TABLET PO SCH (23:32)
[2019-04-05] MEDS: MEROPENEM 500 MG in SODIUM CHLORIDE 0.9% 100 ML IV SCH (01:09)
[2019-04-05 05:59] LABS: Basophils % 0.4 % (0.0-0.8); Eosinophils # 0.1 10*3/uL (0.0-0.87); Eosinophils % 0.6 % (0.00-10.9); Hematocrit 22.5 VOL% (35.7-47.0); Hemoglobin 7.3 GM/DL (12.0-16.0); Immature Granulocytes % 0.5 %; Immature Granulocytes Absolute 0.05 #; Lymphocytes # 1.9 10*3/uL (1.4-4.0); Lymphocytes % 18.5 % (21.3-54.2); Mean Corpuscular HGB Conc 32.4 GM/DL (32-36); Mean Corpuscular Volume 77.9 FL (87-102); Mean Platelet Volume 11.1 FL (9.6-12.0); Monocytes % 12.9 % (1.7-12.7); Neutrophils % 67.1 % (38.7-73.9); Platelet Count 186 T/CUMM (130-400); Red Blood Count 2.89 MC/CUMM (3.8-5.5); Red Cell Distribution Width 19.3 % (9.3-17.3); White Blood Count 10.3 T/CUMM (4-12)
[2019-04-05 06:13] LABS: Osmolality,Calculated 263.2 MOS/KG (273-304)
[2019-04-05] MEDS: LINACLOTIDE 145 MCG CAPSULE PO SCH ×2 (08:00→09:44)
[2019-04-05] MEDS: MULTIVITAMIN (BEROCCA) TABLET PO SCH ×2 (08:00→09:44)
[2019-04-05] MEDS: calcitrioL 0.25 MCG CAPSULE PO SCH ×2 (08:00→09:44)
[2019-04-05] MEDS: DICYCLOMINE 20 MG TABLET PO SCH ×3 (08:00→20:21)
[2019-04-05] MEDS ORDERED: Sucroferric Oxyhydroxide [Velphoro] 500 MG PO SCH (08:00)
[2019-04-05] MEDS: CYPROHEPTADINE 4 MG TABLET PO SCH ×3 (08:00→22:23)
[2019-04-05] MEDS: PANTOPRAZOLE 40 MG TABLET PO SCH ×2 (08:00→09:44)
[2019-04-05] MEDS ORDERED: VANCOMYCIN INJ 500 MG in SODIUM CHLORIDE 0.9% 100 ML IV ONE (18:00)
[2019-04-05] MEDS: ESCITALOPRAM 10 MG TABLET PO SCH (20:21)
[2019-04-05] MEDS: POTASSIUM CHLORIDE 20 MEQ TABLET PO PRN (22:25)
[2019-04-06] MEDS: POTASSIUM CHLORIDE 20 MEQ TABLET PO PRN ×4 (00:05→08:58)
[2019-04-06] MEDS: MEROPENEM 500 MG in SODIUM CHLORIDE 0.9% 100 ML IV SCH (00:05)
[2019-04-06 05:55] LABS: Basophils % 0.2 % (0.0-0.8); Eosinophils % 0.2 % (0.00-10.9); Hematocrit 21.7 VOL% (35.7-47.0); Hemoglobin 7.2 GM/DL (12.0-16.0); Immature Granulocytes % 0.4 %; Immature Granulocytes Absolute 0.05 #; Lymphocytes # 1.9 10*3/uL (1.4-4.0); Lymphocytes % 15.4 % (21.3-54.2); Mean Corpuscular HGB Conc 33.2 GM/DL (32-36); Mean Corpuscular Volume 76.4 FL (87-102); Mean Platelet Volume 11.5 FL (9.6-12.0); Monocytes % 12.9 % (1.7-12.7); Neutrophils % 70.9 % (38.7-73.9); Platelet Count 141 T/CUMM (130-400); Red Blood Count 2.84 MC/CUMM (3.8-5.5); White Blood Count 12.2 T/CUMM (4-12)
[2019-04-06 06:18] LABS: Osmolality,Calculated 264.1 MOS/KG (273-304)
[2019-04-06] MEDS: DICYCLOMINE 20 MG TABLET PO SCH ×2 (08:58→20:41)
[2019-04-06] MEDS: CYPROHEPTADINE 4 MG TABLET PO SCH ×2 (08:58→20:41)
[2019-04-06] MEDS: LINACLOTIDE 145 MCG CAPSULE PO SCH (08:58)
[2019-04-06] MEDS: MULTIVITAMIN (BEROCCA) TABLET PO SCH (08:58)
[2019-04-06] MEDS: calcitrioL 0.25 MCG CAPSULE PO SCH (08:58)
[2019-04-06] MEDS: PANTOPRAZOLE 40 MG TABLET PO SCH (08:59)
[2019-04-06] MEDS: ESCITALOPRAM 10 MG TABLET PO SCH (20:41)
[2019-04-07] MEDS: MEROPENEM 500 MG in SODIUM CHLORIDE 0.9% 100 ML IV SCH (00:53)
[2019-04-07 06:42] LABS: Basophils % 0.2 % (0.0-0.8); Eosinophils # 0.2 10*3/uL (0.0-0.87); Eosinophils % 1.2 % (0.00-10.9); Hematocrit 23.8 VOL% (35.7-47.0); Hemoglobin 7.7 GM/DL (12.0-16.0); Immature Granulocytes % 0.6 %; Immature Granulocytes Absolute 0.08 #; Lymphocytes # 2.7 10*3/uL (1.4-4.0); Lymphocytes % 20.4 % (21.3-54.2); Mean Corpuscular HGB Conc 32.4 GM/DL (32-36); Mean Corpuscular Volume 78.8 FL (87-102); Mean Platelet Volume 11.3 FL (9.6-12.0); Monocytes % 14.5 % (1.7-12.7); Neutrophils % 63.1 % (38.7-73.9); Platelet Count 162 T/CUMM (130-400); Red Blood Count 3.02 MC/CUMM (3.8-5.5); Red Cell Distribution Width 19.7 % (9.3-17.3)
[2019-04-07 06:43] LABS: Calcium 9.1 MG/DL (8.5-10.1); Osmolality,Calculated 267.2 MOS/KG (273-304)
[2019-04-07] MEDS: DICYCLOMINE 20 MG TABLET PO SCH ×2 (10:21→21:33)
[2019-04-07] MEDS: LINACLOTIDE 145 MCG CAPSULE PO SCH (10:21)
[2019-04-07] MEDS: MULTIVITAMIN (BEROCCA) TABLET PO SCH (10:21)
[2019-04-07] MEDS: CYPROHEPTADINE 4 MG TABLET PO SCH ×2 (10:21→21:33)
[2019-04-07] MEDS: calcitrioL 0.25 MCG CAPSULE PO SCH (10:21)
[2019-04-07] MEDS: PANTOPRAZOLE 40 MG TABLET PO SCH (10:21)
[2019-04-07 21:19] LABS: Basophils % 0.3 % (0.0-0.8); Eosinophils # 0.2 10*3/uL (0.0-0.87); Eosinophils % 1.5 % (0.00-10.9); Hematocrit 24.2 VOL% (35.7-47.0); Hemoglobin 7.6 GM/DL (12.0-16.0); Immature Granulocytes % 0.4 %; Immature Granulocytes Absolute 0.04 #; Lymphocytes # 2.5 10*3/uL (1.4-4.0); Lymphocytes % 22.7 % (21.3-54.2); Mean Corpuscular HGB Conc 31.4 GM/DL (32-36); Mean Corpuscular Volume 80.4 FL (87-102); Mean Platelet Volume 11.4 FL (9.6-12.0); Monocytes % 13.9 % (1.7-12.7); Neutrophils % 61.2 % (38.7-73.9); Platelet Count 165 T/CUMM (130-400); Red Blood Count 3.01 MC/CUMM (3.8-5.5); Red Cell Distribution Width 19.8 % (9.3-17.3); White Blood Count 10.9 T/CUMM (4-12)
[2019-04-07] MEDS: ESCITALOPRAM 10 MG TABLET PO SCH (21:33)
[2019-04-07 21:38] LABS: Calcium 9.4 MG/DL (8.5-10.1); Osmolality,Calculated 270.2 MOS/KG (273-304)
[2019-04-07 21:50] LABS: Eosinophils 1 % (0-10); Lymphocytes 5 % (20-55); Segmented Neutrophils 88 % (50-85)
[2019-04-07 21:51] LABS: Anisocytosis 2+; Hypochromasia 3+; Platelet Estimate Normal; Polychromasia Few
[2019-04-07 21:52] LABS: Microcytosis 1+; Schistocytes Few; Target Cells 1+
[2019-04-07 21:53] LABS: Poikilocytosis Slight; Total Cells Counted 100
[2019-04-08] MEDS: MEROPENEM 500 MG in SODIUM CHLORIDE 0.9% 100 ML IV SCH (01:57)
[2019-04-08 05:18] LABS: Basophils % 0.4 % (0.0-0.8); Eosinophils # 0.3 10*3/uL (0.0-0.87); Eosinophils % 2.7 % (0.00-10.9); Hematocrit 23.8 VOL% (35.7-47.0); Hemoglobin 7.7 GM/DL (12.0-16.0); Immature Granulocytes % 0.3 %; Immature Granulocytes Absolute 0.03 #; Lymphocytes # 2.1 10*3/uL (1.4-4.0); Lymphocytes % 21.9 % (21.3-54.2); Mean Corpuscular HGB Conc 32.4 GM/DL (32-36); Mean Corpuscular Volume 77.8 FL (87-102); Mean Platelet Volume 11.8 FL (9.6-12.0); Monocytes % 13.7 % (1.7-12.7); Platelet Count 158 T/CUMM (130-400); Red Blood Count 3.06 MC/CUMM (3.8-5.5); Red Cell Distribution Width 19.6 % (9.3-17.3); White Blood Count 9.3 T/CUMM (4-12)
[2019-04-08 05:40] LABS: Alanine Aminotransferase < 9 U/L (13-56); Albumin 0.9 G/DL (3.4-5.0); Alkaline Phosphatase 127 U/L (45-117); Aspartate Amino Transferase 26 U/L (0-37); Blood Urea Nitrogen 29 MG/DL (7-18); Calcium 9.7 MG/DL (8.5-10.1); Estimated Glom Filtration Rate 7 ML/MIN; Glucose 62 MG/DL (74-106); Osmolality,Calculated 269.4 MOS/KG (273-304); Total Protein 6.1 G/DL (6.4-8.3)
[2019-04-08 05:51] LABS: Band Neutrophils 1 % (0-10); Eosinophils 4 % (0-10); Hypochromasia 1+; Lymphocytes 11 % (20-55); Microcytosis 1+; Platelet Estimate Adequate; Segmented Neutrophils 77 % (50-85); Target Cells Few; Total Cells Counted 100
[2019-04-08] MEDS: MULTIVITAMIN (BEROCCA) TABLET PO SCH (08:32)
[2019-04-08] MEDS: calcitrioL 0.25 MCG CAPSULE PO SCH (08:32)
[2019-04-08] MEDS: CYPROHEPTADINE 4 MG TABLET PO SCH ×2 (08:32→21:54)
[2019-04-08] MEDS: DICYCLOMINE 20 MG TABLET PO SCH ×2 (08:32→21:55)
[2019-04-08] MEDS: PANTOPRAZOLE 40 MG TABLET PO SCH (08:32)
[2019-04-08] MEDS: LINACLOTIDE 145 MCG CAPSULE PO SCH (08:33)
[2019-04-08] MEDS ORDERED: HEPARIN 10,000 UNIT/10 ML VIAL IV SCH (12:00)
[2019-04-08] MEDS ORDERED: ALTEPLASE 2 MG VIAL IV ONE (12:00)
[2019-04-08] MEDS ORDERED: VANCOMYCIN INJ 500 MG in SODIUM CHLORIDE 0.9% 100 ML IV ONE (17:00)
[2019-04-08] MEDS: ESCITALOPRAM 10 MG TABLET PO SCH (21:54)
[2019-04-09] MEDS: MEROPENEM 500 MG in SODIUM CHLORIDE 0.9% 100 ML IV SCH (00:52)
[2019-04-09 05:09] LABS: Basophils % 0.5 % (0.0-0.8); Eosinophils # 0.2 10*3/uL (0.0-0.87); Eosinophils % 2.7 % (0.00-10.9); Hematocrit 22.1 VOL% (35.7-47.0); Hemoglobin 7.3 GM/DL (12.0-16.0); Immature Granulocytes % 0.6 %; Immature Granulocytes Absolute 0.05 #; Lymphocytes # 2.2 10*3/uL (1.4-4.0); Lymphocytes % 26.4 % (21.3-54.2); Mean Corpuscular Volume 77.8 FL (87-102); Mean Platelet Volume 11.3 FL (9.6-12.0); Monocytes % 16.9 % (1.7-12.7); Neutrophils % 52.9 % (38.7-73.9); Platelet Count 131 T/CUMM (130-400); Red Blood Count 2.84 MC/CUMM (3.8-5.5); Red Cell Distribution Width 19.4 % (9.3-17.3); White Blood Count 8.3 T/CUMM (4-12)
[2019-04-09 05:37] LABS: Eosinophils 1 % (0-10); Hypochromasia 1+; Lymphocytes 15 % (20-55); Platelet Estimate Normal; Segmented Neutrophils 69 % (50-85); Target Cells Few; Total Cells Counted 100
[2019-04-09 05:44] LABS: Calcium 8.6 MG/DL (8.5-10.1); Osmolality,Calculated 270.1 MOS/KG (273-304)
[2019-04-09] MEDS: calcitrioL 0.25 MCG CAPSULE PO SCH (08:14)
[2019-04-09] MEDS: CYPROHEPTADINE 4 MG TABLET PO SCH ×2 (08:14→21:01)
[2019-04-09] MEDS: PANTOPRAZOLE 40 MG TABLET PO SCH (08:14)
[2019-04-09] MEDS: MULTIVITAMIN (BEROCCA) TABLET PO SCH (08:14)
[2019-04-09] MEDS: DICYCLOMINE 20 MG TABLET PO SCH ×2 (08:15→21:01)
[2019-04-09] MEDS: LINACLOTIDE 145 MCG CAPSULE PO SCH (08:15)
[2019-04-09] MEDS: MEGESTROL 400 MG/10 ML UDCUP PO SCH (14:57)
[2019-04-09] MEDS: ESCITALOPRAM 10 MG TABLET PO SCH (21:01)
[2019-04-10] MEDS: MEROPENEM 500 MG in SODIUM CHLORIDE 0.9% 100 ML IV SCH (01:08)
[2019-04-10] MEDS: PANTOPRAZOLE 40 MG TABLET PO SCH (08:26)
[2019-04-10] MEDS: calcitrioL 0.25 MCG CAPSULE PO SCH (08:26)
[2019-04-10] MEDS: CYPROHEPTADINE 4 MG TABLET PO SCH ×2 (08:26→20:23)
[2019-04-10] MEDS: MULTIVITAMIN (BEROCCA) TABLET PO SCH (08:26)
[2019-04-10] MEDS: MEGESTROL 400 MG/10 ML UDCUP PO SCH (08:26)
[2019-04-10] MEDS: DICYCLOMINE 20 MG TABLET PO SCH ×2 (08:26→20:24)
[2019-04-10] MEDS: LINACLOTIDE 145 MCG CAPSULE PO SCH (08:26)
[2019-04-10] MEDS ORDERED: VANCOMYCIN INJ 500 MG in SODIUM CHLORIDE 0.9% 100 ML IV ONE (13:30)
[2019-04-10] MEDS: ESCITALOPRAM 10 MG TABLET PO SCH (20:24)
[2019-04-11] MEDS: MEROPENEM 500 MG in SODIUM CHLORIDE 0.9% 100 ML IV SCH (01:23)
[2019-04-11] MEDS: CYPROHEPTADINE 4 MG TABLET PO SCH ×2 (08:03→22:53)
[2019-04-11] MEDS: LINACLOTIDE 145 MCG CAPSULE PO SCH (08:03)
[2019-04-11] MEDS: calcitrioL 0.25 MCG CAPSULE PO SCH (08:03)
[2019-04-11] MEDS: PANTOPRAZOLE 40 MG TABLET PO SCH (08:03)
[2019-04-11] MEDS: DICYCLOMINE 20 MG TABLET PO SCH ×2 (08:03→22:53)
[2019-04-11] MEDS: MULTIVITAMIN (BEROCCA) TABLET PO SCH (08:03)
[2019-04-11] MEDS: MEGESTROL 400 MG/10 ML UDCUP PO SCH (08:03)
[2019-04-11] MEDS: MENTHOL/ZINC OXIDE OINT 71 GM JAR TOP SCH ×2 (13:06→20:25)
[2019-04-11] MEDS: ESCITALOPRAM 10 MG TABLET PO SCH (22:52)
[2019-04-12] MEDS: MEROPENEM 500 MG in SODIUM CHLORIDE 0.9% 100 ML IV SCH (01:07)
[2019-04-12] MEDS: calcitrioL 0.25 MCG CAPSULE PO SCH (10:33)
[2019-04-12] MEDS: CYPROHEPTADINE 4 MG TABLET PO SCH ×2 (10:33→21:36)
[2019-04-12] MEDS: PANTOPRAZOLE 40 MG TABLET PO SCH (10:33)
[2019-04-12] MEDS: DICYCLOMINE 20 MG TABLET PO SCH ×2 (10:33→21:36)
[2019-04-12] MEDS: MEGESTROL 400 MG/10 ML UDCUP PO SCH (10:33)
[2019-04-12] MEDS: LINACLOTIDE 145 MCG CAPSULE PO SCH (10:34)
[2019-04-12] MEDS: MULTIVITAMIN (BEROCCA) TABLET PO SCH (10:34)
[2019-04-12] MEDS: MENTHOL/ZINC OXIDE OINT 71 GM JAR TOP SCH ×2 (10:34→21:36)
[2019-04-12] MEDS ORDERED: VANCOMYCIN INJ 500 MG in SODIUM CHLORIDE 0.9% 100 ML IV ONE (17:00)
[2019-04-12] MEDS: ACETAMINOPHEN 325 MG TABLET PO PRN (18:06)
[2019-04-12] MEDS: ESCITALOPRAM 10 MG TABLET PO SCH (21:36)
[2019-04-13] MEDS: PANTOPRAZOLE 40 MG TABLET PO SCH (08:25)
[2019-04-13] MEDS: CYPROHEPTADINE 4 MG TABLET PO SCH ×2 (08:25→22:05)
[2019-04-13] MEDS: DICYCLOMINE 20 MG TABLET PO SCH ×2 (08:25→22:05)
[2019-04-13] MEDS: MULTIVITAMIN (BEROCCA) TABLET PO SCH (08:25)
[2019-04-13] MEDS: MEGESTROL 400 MG/10 ML UDCUP PO SCH (08:25)
[2019-04-13] MEDS: calcitrioL 0.25 MCG CAPSULE PO SCH (08:25)
[2019-04-13] MEDS: MENTHOL/ZINC OXIDE OINT 71 GM JAR TOP SCH ×2 (08:26→22:05)
[2019-04-13] MEDS: LINACLOTIDE 145 MCG CAPSULE PO SCH (08:26)
[2019-04-13] MEDS: ESCITALOPRAM 10 MG TABLET PO SCH (22:05)
[2019-04-14] MEDS: MEGESTROL 400 MG/10 ML UDCUP PO SCH ×2 (07:43→08:09)
[2019-04-14] MEDS: CYPROHEPTADINE 4 MG TABLET PO SCH ×3 (07:43→20:23)
[2019-04-14] MEDS: LINACLOTIDE 145 MCG CAPSULE PO SCH (07:43)
[2019-04-14] MEDS: MULTIVITAMIN (BEROCCA) TABLET PO SCH ×2 (07:44→08:09)
[2019-04-14] MEDS: PANTOPRAZOLE 40 MG TABLET PO SCH ×2 (07:44→08:09)
[2019-04-14] MEDS: calcitrioL 0.25 MCG CAPSULE PO SCH ×2 (07:44→08:10)
[2019-04-14] MEDS: DICYCLOMINE 20 MG TABLET PO SCH ×3 (07:44→20:23)
[2019-04-14] MEDS: ACETAMINOPHEN 325 MG TABLET PO PRN (07:44)
[2019-04-14] MEDS: MENTHOL/ZINC OXIDE OINT 71 GM JAR TOP SCH ×3 (07:45→20:23)
[2019-04-14] MEDS ORDERED: guaiFENesin/CODEINE 5 ML LIQUID PO PRN (11:22)
[2019-04-14] MEDS ORDERED: KETOROLAC 15 MG/1 ML VIAL IV ONE (11:24)
[2019-04-14] MEDS: ESCITALOPRAM 10 MG TABLET PO SCH (20:22)
[2019-04-15 05:52] LABS: Basophils % 0.3 % (0.0-0.8); Eosinophils # 0.2 10*3/uL (0.0-0.87); Eosinophils % 1.7 % (0.00-10.9); Hematocrit 20.5 VOL% (35.7-47.0); Hemoglobin 6.8 GM/DL (12.0-16.0); Immature Granulocytes % 0.6 %; Immature Granulocytes Absolute 0.06 #; Lymphocytes # 2.4 10*3/uL (1.4-4.0); Lymphocytes % 25.2 % (21.3-54.2); Mean Corpuscular HGB Conc 33.2 GM/DL (32-36); Mean Corpuscular Volume 75.4 FL (87-102); Mean Platelet Volume 11.9 FL (9.6-12.0); Neutrophils % 56.2 % (38.7-73.9); Platelet Count 205 T/CUMM (130-400); Red Blood Count 2.72 MC/CUMM (3.8-5.5); Red Cell Distribution Width 19.3 % (9.3-17.3); White Blood Count 9.5 T/CUMM (4-12)
[2019-04-15 06:20] LABS: Band Neutrophils 4 % (0-10); Eosinophils 3 % (0-10); Hypochromasia 2+; Lymphocytes 16 % (20-55); Segmented Neutrophils 66 % (50-85); Total Cells Counted 100
[2019-04-15 06:21] LABS: Microcytosis 1+; Ovalocytes Slight; Platelet Estimate Normal; Target Cells 1+
[2019-04-15 06:30] LABS: Calcium 9.7 MG/DL (8.5-10.1)
[2019-04-15] MEDS ORDERED: ACETAMINOPHEN 325 MG TABLET PO PRN (06:48)
[2019-04-15] MEDS ORDERED: diphenhydrAMINE CAP 25 MG CAPSULE PO PRN (06:48)
[2019-04-15] MEDS ORDERED: SODIUM CHLORIDE 0.9% 1,000 ML IV PRN ×2 (06:48→16:01)
[2019-04-15] MEDS: DICYCLOMINE 20 MG TABLET PO SCH ×3 (07:53→20:41)
[2019-04-15] MEDS: MULTIVITAMIN (BEROCCA) TABLET PO SCH ×2 (07:53→08:01)
[2019-04-15] MEDS: calcitrioL 0.25 MCG CAPSULE PO SCH ×2 (07:53→08:02)
[2019-04-15] MEDS: LINACLOTIDE 145 MCG CAPSULE PO SCH (07:53)
[2019-04-15] MEDS: CYPROHEPTADINE 4 MG TABLET PO SCH ×3 (07:53→20:41)
[2019-04-15] MEDS: MEGESTROL 400 MG/10 ML UDCUP PO SCH ×2 (07:53→08:01)
[2019-04-15] MEDS: PANTOPRAZOLE 40 MG TABLET PO SCH ×2 (07:54→08:02)
[2019-04-15] MEDS: MENTHOL/ZINC OXIDE OINT 71 GM JAR TOP SCH ×3 (07:54→20:41)
[2019-04-15] MEDS: ACETAMINOPHEN 325 MG TABLET PO PRN (10:18)
[2019-04-15] MEDS: ESCITALOPRAM 10 MG TABLET PO SCH (20:41)
[2019-04-16] MEDS: CYPROHEPTADINE 4 MG TABLET PO SCH ×2 (08:28→21:02)
[2019-04-16] MEDS: DICYCLOMINE 20 MG TABLET PO SCH ×2 (08:28→21:02)
[2019-04-16] MEDS: MULTIVITAMIN (BEROCCA) TABLET PO SCH (08:28)
[2019-04-16] MEDS: PANTOPRAZOLE 40 MG TABLET PO SCH (08:28)
[2019-04-16] MEDS: MENTHOL/ZINC OXIDE OINT 71 GM JAR TOP SCH ×2 (08:28→21:02)
[2019-04-16] MEDS: LINACLOTIDE 145 MCG CAPSULE PO SCH (08:28)
[2019-04-16] MEDS: MEGESTROL 400 MG/10 ML UDCUP PO SCH (08:28)
[2019-04-16] MEDS: calcitrioL 0.25 MCG CAPSULE PO SCH (08:28)
[2019-04-16] MEDS: ESCITALOPRAM 10 MG TABLET PO SCH (21:02)
[2019-04-17 05:49] LABS: Basophils % 0.3 % (0.0-0.8); Eosinophils # 0.1 10*3/uL (0.0-0.87); Eosinophils % 1.1 % (0.00-10.9); Hematocrit 26.6 VOL% (35.7-47.0); Hemoglobin 9.2 GM/DL (12.0-16.0); Immature Granulocytes % 0.9 %; Lymphocytes # 2.8 10*3/uL (1.4-4.0); Lymphocytes % 24.3 % (21.3-54.2); Mean Corpuscular HGB Conc 34.6 GM/DL (32-36); Mean Corpuscular Volume 80.1 FL (87-102); Mean Platelet Volume 12.1 FL (9.6-12.0); Monocytes % 16.4 % (1.7-12.7); Platelet Count 169 T/CUMM (130-400); Red Blood Count 3.32 MC/CUMM (3.8-5.5); White Blood Count 11.4 T/CUMM (4-12)
[2019-04-17 06:11] LABS: Anisocytosis 1+; Band Neutrophils 6 % (0-10); Eosinophils 2 % (0-10); Lymphocytes 13 % (20-55); Microcytosis 1+; Segmented Neutrophils 64 % (50-85); Target Cells Slight; Total Cells Counted 100
[2019-04-17 06:12] LABS: Hypochromasia 2+; Platelet Estimate Adequate; Spherocytes Slight
[2019-04-17] MEDS: MEGESTROL 400 MG/10 ML UDCUP PO SCH (08:48)
[2019-04-17] MEDS: calcitrioL 0.25 MCG CAPSULE PO SCH (08:48)
[2019-04-17] MEDS: LINACLOTIDE 145 MCG CAPSULE PO SCH (08:48)
[2019-04-17] MEDS: PANTOPRAZOLE 40 MG TABLET PO SCH (08:48)
[2019-04-17] MEDS: DICYCLOMINE 20 MG TABLET PO SCH ×2 (08:48→21:03)
[2019-04-17] MEDS: MENTHOL/ZINC OXIDE OINT 71 GM JAR TOP SCH ×2 (08:48→21:03)
[2019-04-17] MEDS: CYPROHEPTADINE 4 MG TABLET PO SCH ×2 (08:48→21:04)
[2019-04-17] MEDS: MULTIVITAMIN (BEROCCA) TABLET PO SCH (08:48)
[2019-04-17] MEDS ORDERED: ALTEPLASE 2 MG VIAL IV SCH ×2 (12:00)
[2019-04-17] MEDS ORDERED: ceFAZolin 1,000 MG in SYRINGE 1 EACH IV ONE (14:57)
[2019-04-17] MEDS: ESCITALOPRAM 10 MG TABLET PO SCH (21:04)
[2019-04-18] MEDS ORDERED: ceFAZolin 1,000 MG in SYRINGE 1 EACH IV ONE (06:00)
[2019-04-18] MEDS: LINACLOTIDE 145 MCG CAPSULE PO SCH (10:16)
[2019-04-18] MEDS ORDERED: BUPIVACAINE MPF 0.25% 30 ML VIAL ONE (10:17)
[2019-04-18] MEDS ORDERED: HEPARIN 5,000 UNIT/1 ML VIAL ONE (10:17)
[2019-04-18] MEDS ORDERED: LIDOCAINE 1%/EPI INJ 20 ML VIAL ONE (10:17)
[2019-04-18] MEDS ORDERED: SODIUM CHLORIDE 0.9% 250 ML IV SCH (11:00)
[2019-04-18] MEDS ORDERED: KETAMINE 500 MG/10 ML VIAL ONE (11:38)
[2019-04-18] MEDS ORDERED: fentaNYL 100 MCG/2 ML VIAL ONE (11:39)
[2019-04-18] MEDS ORDERED: MIDAZOLAM 2 MG/2 ML VIAL ONE (11:39)
[2019-04-18 12:21] VITALS: BP 118/65
[2019-04-18] MEDS: PANTOPRAZOLE 40 MG TABLET PO SCH (12:51)
[2019-04-18] MEDS: MULTIVITAMIN (BEROCCA) TABLET PO SCH (12:51)
[2019-04-18] MEDS: CYPROHEPTADINE 4 MG TABLET PO SCH (12:51)
[2019-04-18] MEDS: DICYCLOMINE 20 MG TABLET PO SCH (12:51)
[2019-04-18] MEDS: MEGESTROL 400 MG/10 ML UDCUP PO SCH (12:51)
[2019-04-18] MEDS: calcitrioL 0.25 MCG CAPSULE PO SCH (12:51)
[2019-04-18] MEDS: MENTHOL/ZINC OXIDE OINT 71 GM JAR TOP SCH (12:52)
== END 2019-04-18 15:18 | DRG 393 ==
LOC: N.ED 13:58 → N.EDINP 20:32 → SUATTDRO 20:32 → N.5E 21:53
PROVIDERS: ADMIT Internal Medicine; ATTEND Emergency Medicine

== ENCOUNTER 2019-04-22 15:10 | Inpatient (IN) ==
[2019-04-22] MEDS ORDERED: SODIUM CHLORIDE 0.9% 500 ML IV STA ×2 (15:57→17:47)
[2019-04-22] MEDS ORDERED: MEROPENEM 500 MG in SODIUM CHLORIDE 0.9% 100 ML IV STA (15:57)
[2019-04-22] MEDS ORDERED: VANCOMYCIN INJ 1,000 MG in SODIUM CHLORIDE 0.9% 250 ML IV STA ×2 (15:57→15:59)
[2019-04-22 17:06] LABS: Basophils % 0.1 % (0.0-0.8); Hematocrit 38.7 VOL% (35.7-47.0); Hemoglobin 12.9 GM/DL (12.0-16.0); Immature Granulocytes % 0.6 %; Immature Granulocytes Absolute 0.05 #; Lymphocytes # 1.5 10*3/uL (1.4-4.0); Lymphocytes % 17.3 % (21.3-54.2); Mean Corpuscular HGB Conc 33.3 GM/DL (32-36); Mean Corpuscular Volume 82.5 FL (87-102); Monocytes % 11.1 % (1.7-12.7); NRBC # 0.02 10*3/uL; Neutrophils % 70.9 % (38.7-73.9); Platelet Count 140 T/CUMM (130-400); Red Blood Count 4.69 MC/CUMM (3.8-5.5); White Blood Count 8.5 T/CUMM (4-12)
[2019-04-22 17:33] LABS: Alanine Aminotransferase < 6 U/L (13-56); Albumin 0.9 G/DL (3.4-5.0); Alkaline Phosphatase 143 U/L (45-117); Aspartate Amino Transferase 38 U/L (0-37); Blood Urea Nitrogen 9 MG/DL (7-18); Estimated Glom Filtration Rate 13 ML/MIN; Glucose 67 MG/DL (74-106); Osmolality,Calculated 269.8 MOS/KG (273-304); Total Protein 7.1 G/DL (6.4-8.3)
[2019-04-22] MEDS ORDERED: ALBUTEROL 2.5 MG/3 ML NEB RESP TX PRN (18:55)
[2019-04-22] MEDS: SODIUM CHLORIDE 0.9% 1,000 ML IV SCH (20:10)
[2019-04-22] MEDS: ENOXAPARIN 30 MG/0.3 ML SYRINGE SUBCUT SCH (20:15)
[2019-04-22] MEDS: metroNIDAZOLE INJ 500 MG in PREMIX 1 EACH IV SCH (20:15)
[2019-04-22] MEDS: FAMOTIDINE 20 MG/2 ML VIAL IV SCH (20:16)
[2019-04-22 21:12] LABS: Band Neutrophils 4 % (0-10); Lymphocytes 11 % (20-55); Microcytosis Slight; Platelet Estimate Normal; Segmented Neutrophils 77 % (50-85); Total Cells Counted 100
[2019-04-23 02:22] LABS: Basophils % 0.3 % (0.0-0.8); Eosinophils % 0.2 % (0.00-10.9); Hematocrit 23.6 VOL% (35.7-47.0); Hemoglobin 7.5 GM/DL (12.0-16.0); Immature Granulocytes % 0.4 %; Immature Granulocytes Absolute 0.04 #; Lymphocytes # 1.6 10*3/uL (1.4-4.0); Lymphocytes % 15.9 % (21.3-54.2); Mean Corpuscular HGB Conc 31.8 GM/DL (32-36); Mean Corpuscular Volume 84.9 FL (87-102); Mean Platelet Volume 12.7 FL (9.6-12.0); Monocytes % 12.7 % (1.7-12.7); NRBC # 0.02 10*3/uL; Neutrophils % 70.5 % (38.7-73.9); Platelet Count 119 T/CUMM (130-400); Red Blood Count 2.78 MC/CUMM (3.8-5.5); Red Cell Distribution Width 20.2 % (9.3-17.3); White Blood Count 9.8 T/CUMM (4-12)
[2019-04-23 02:38] LABS: Alanine Aminotransferase < 6 U/L (13-56); Albumin 0.7 G/DL (3.4-5.0); Alkaline Phosphatase 117 U/L (45-117); Aspartate Amino Transferase 27 U/L (0-37); Blood Urea Nitrogen 10 MG/DL (7-18); Calcium 8.7 MG/DL (8.5-10.1); Estimated Glom Filtration Rate 12 ML/MIN; Glucose 74 MG/DL (74-106); Osmolality,Calculated 270.8 MOS/KG (273-304); Total Protein 5.9 G/DL (6.4-8.3)
[2019-04-23 02:44] LABS: Band Neutrophils 5 % (0-10); Eosinophils 1 % (0-10); Lymphocytes 3 % (20-55); Platelet Estimate Normal; Segmented Neutrophils 82 % (50-85); Total Cells Counted 100
[2019-04-23 02:48] LABS: Target Cells 3+
[2019-04-23 02:49] LABS: Hypochromasia 1+; Microcytosis 1+
[2019-04-23 02:50] LABS: Polychromasia Slight; Stomatocytes Slight
[2019-04-23] MEDS: metroNIDAZOLE INJ 500 MG in PREMIX 1 EACH IV SCH (05:29)
[2019-04-23] MEDS: NOREPINEPHRINE 8 MG in SODIUM CHLORIDE 0.9% 242 ML IV SCH ×2 (05:29→18:27)
[2019-04-23] MEDS ORDERED: SODIUM CHLORIDE 0.9% 1,000 ML IV PRN (08:39)
[2019-04-23] MEDS ORDERED: GENTAMICIN INJ 120 MG in PREMIX 1 EACH IV PRN (09:00)
[2019-04-23] MEDS ORDERED: GENTAMICIN INJ 200 MG in SODIUM CHLORIDE 0.9% 100 ML IV ONE (10:00)
[2019-04-23] MEDS ORDERED: LIDOCAINE 1%/EPI INJ 20 ML VIAL ONE (13:45)
[2019-04-23] MEDS ORDERED: BUPIVACAINE MPF 0.25% 30 ML VIAL ONE (13:45)
[2019-04-23] MEDS: MEROPENEM 500 MG in SODIUM CHLORIDE 0.9% 100 ML IV SCH (18:25)
[2019-04-23] MEDS: SODIUM CHLORIDE 0.9% 1,000 ML IV SCH (18:26)
[2019-04-23] MEDS: ENOXAPARIN 30 MG/0.3 ML SYRINGE SUBCUT SCH (20:06)
[2019-04-23] MEDS: FAMOTIDINE 20 MG/2 ML VIAL IV SCH (20:07)
[2019-04-23 21:42] LABS: Hematocrit 33.4 VOL% (35.7-47.0); Hemoglobin 11.3 GM/DL (12.0-16.0)
[2019-04-24 06:11] LABS: Basophils # 0.1 10*3/uL (0.0-0.2); Basophils % 0.6 % (0.0-0.8); Eosinophils # 0.1 10*3/uL (0.0-0.87); Eosinophils % 0.8 % (0.00-10.9); Hematocrit 36.1 VOL% (35.7-47.0); Hemoglobin 11.8 GM/DL (12.0-16.0); Immature Granulocytes % 0.6 %; Immature Granulocytes Absolute 0.07 #; Mean Corpuscular HGB Conc 32.7 GM/DL (32-36); Mean Corpuscular Volume 86.6 FL (87-102); Mean Platelet Volume 12.8 FL (9.6-12.0); Monocytes % 20.8 % (1.7-12.7); NRBC # 0.05 10*3/uL; Neutrophils % 51.2 % (38.7-73.9); Platelet Count 132 T/CUMM (130-400); Red Blood Count 4.17 MC/CUMM (3.8-5.5); Red Cell Distribution Width 18.2 % (9.3-17.3); White Blood Count 11.6 T/CUMM (4-12)
[2019-04-24 06:37] LABS: Band Neutrophils 1 % (0-10); Hypochromasia 1+; Lymphocytes 22 % (20-55); Segmented Neutrophils 59 % (50-85); Total Cells Counted 100
[2019-04-24 06:38] LABS: Microcytosis 1+; Platelet Estimate Adequate; Target Cells Slight
[2019-04-24 06:57] LABS: Calcium 9.5 MG/DL (8.5-10.1); Osmolality,Calculated 277.4 MOS/KG (273-304)
[2019-04-24] MEDS: ACETAMINOPHEN 325 MG TABLET PO PRN (11:46)
[2019-04-24] MEDS: SODIUM CHLORIDE 0.9% 1,000 ML IV SCH (11:55)
[2019-04-24] MEDS ORDERED: NON-FORMULARY MEDICATION (Albuterol Sulfate [Ventolin Hfa] 2 PUFF) INH PRN (16:23)
[2019-04-24] MEDS ORDERED: POLYETHYLENE GLYCOL POWDER 17 GM PACK PO PRN (16:23)
[2019-04-24] MEDS ORDERED: ONDANSETRON ODT 4 MG TABLET PO PRN (16:23)
[2019-04-24] MEDS ORDERED: NF- (Sucroferric Oxyhydroxide [Velphoro] 500 MG) PO SCH (17:00)
[2019-04-24] MEDS: MEROPENEM 500 MG in SODIUM CHLORIDE 0.9% 100 ML IV SCH (18:58)
[2019-04-24] MEDS: MULTIVITAMIN (BEROCCA) TABLET PO SCH (19:18)
[2019-04-24] MEDS ORDERED: POMALIDOMIDE 3 MG PO SCH (21:00)
[2019-04-24] MEDS: CYPROHEPTADINE 4 MG TABLET PO SCH (22:31)
[2019-04-24] MEDS: ZINC OXIDE PASTE 113 GM TUBE TOP SCH (22:31)
[2019-04-24] MEDS: DICYCLOMINE 20 MG TABLET PO SCH (22:31)
[2019-04-24] MEDS: MENTHOL/ZINC OXIDE OINT 71 GM JAR TOP SCH (22:31)
[2019-04-24] MEDS: ESCITALOPRAM 10 MG TABLET PO SCH (22:31)
[2019-04-24] MEDS: FAMOTIDINE 20 MG/2 ML VIAL IV SCH (22:33)
[2019-04-24] MEDS: ENOXAPARIN 30 MG/0.3 ML SYRINGE SUBCUT SCH (22:38)
[2019-04-25 06:20] LABS: Basophils # 0.1 10*3/uL (0.0-0.2); Basophils % 0.7 % (0.0-0.8); Eosinophils # 0.1 10*3/uL (0.0-0.87); Eosinophils % 1.1 % (0.00-10.9); Hematocrit 30.2 VOL% (35.7-47.0); Hemoglobin 10.2 GM/DL (12.0-16.0); Immature Granulocytes % 0.7 %; Immature Granulocytes Absolute 0.06 #; Lymphocytes # 2.5 10*3/uL (1.4-4.0); Lymphocytes % 29.2 % (21.3-54.2); Mean Corpuscular HGB Conc 33.8 GM/DL (32-36); Mean Corpuscular Volume 84.1 FL (87-102); Mean Platelet Volume 11.6 FL (9.6-12.0); Monocytes % 20.8 % (1.7-12.7); NRBC # 0.05 10*3/uL; Neutrophils % 47.5 % (38.7-73.9); Platelet Count 111 T/CUMM (130-400); Red Blood Count 3.59 MC/CUMM (3.8-5.5); Red Cell Distribution Width 18.2 % (9.3-17.3); White Blood Count 8.4 T/CUMM (4-12)
[2019-04-25 06:40] LABS: Calcium 9.6 MG/DL (8.5-10.1)
[2019-04-25 06:43] LABS: Eosinophils 2 % (0-10); Hypochromasia Slight; Lymphocytes 22 % (20-55); Microcytosis 1+; Platelet Estimate Decreased; Segmented Neutrophils 54 % (50-85); Target Cells Few; Total Cells Counted 100
[2019-04-25] MEDS: MULTIVITAMIN (BEROCCA) TABLET PO SCH (14:31)
[2019-04-25] MEDS: CYPROHEPTADINE 4 MG TABLET PO SCH ×2 (14:31→21:14)
[2019-04-25] MEDS: LINACLOTIDE 145 MCG CAPSULE PO SCH (14:31)
[2019-04-25] MEDS: calcitrioL 0.25 MCG CAPSULE PO SCH (14:31)
[2019-04-25] MEDS: POTASSIUM CHLORIDE 20 MEQ TABLET PO PRN ×3 (14:31→21:14)
[2019-04-25] MEDS: DICYCLOMINE 20 MG TABLET PO SCH ×2 (14:32→21:14)
[2019-04-25] MEDS: MENTHOL/ZINC OXIDE OINT 71 GM JAR TOP SCH ×2 (14:32→22:06)
[2019-04-25] MEDS: ZINC OXIDE PASTE 113 GM TUBE TOP SCH ×2 (14:32→22:06)
[2019-04-25] MEDS: CLINDAMYCIN INJ 600 MG in PREMIX 1 EACH IV SCH ×2 (14:43→18:03)
[2019-04-25] MEDS: SODIUM HYPOCHLORITE 0.25% IRRIG 473 ML BOTTLE TOP SCH (17:38)
[2019-04-25] MEDS ORDERED: HEPARIN LOCK FLUSH 500 UNIT/5 ML SYRINGE IV PRN (18:02)
[2019-04-25] MEDS: HEPARIN LOCK FLUSH 500 UNIT/5 ML SYRINGE IV SCH (18:43)
[2019-04-25] MEDS ORDERED: VANCOMYCIN INJ 750 MG in SODIUM CHLORIDE 0.9% 250 ML IV PRN (19:10)
[2019-04-25] MEDS ORDERED: VANCOMYCIN INJ 1,750 MG in SODIUM CHLORIDE 0.9% 500 ML IV ONE (21:00)
[2019-04-25] MEDS: FAMOTIDINE 20 MG/2 ML VIAL IV SCH (21:13)
[2019-04-25] MEDS: ENOXAPARIN 30 MG/0.3 ML SYRINGE SUBCUT SCH (21:14)
[2019-04-25] MEDS: ESCITALOPRAM 10 MG TABLET PO SCH (21:14)
[2019-04-25] MEDS: ACETAMINOPHEN 325 MG TABLET PO PRN (21:14)
[2019-04-26] MEDS: POTASSIUM CHLORIDE 20 MEQ TABLET PO PRN ×3 (02:03→21:37)
[2019-04-26] MEDS: HEPARIN LOCK FLUSH 500 UNIT/5 ML SYRINGE IV SCH ×2 (06:43→18:12)
[2019-04-26] MEDS: CYPROHEPTADINE 4 MG TABLET PO SCH ×2 (13:40→21:37)
[2019-04-26] MEDS: MULTIVITAMIN (BEROCCA) TABLET PO SCH (13:40)
[2019-04-26] MEDS: calcitrioL 0.25 MCG CAPSULE PO SCH (13:40)
[2019-04-26] MEDS: MENTHOL/ZINC OXIDE OINT 71 GM JAR TOP SCH ×2 (13:41→22:57)
[2019-04-26] MEDS: DICYCLOMINE 20 MG TABLET PO SCH ×2 (13:41→21:37)
[2019-04-26] MEDS: SODIUM HYPOCHLORITE 0.25% IRRIG 473 ML BOTTLE TOP SCH (13:41)
[2019-04-26] MEDS: LINACLOTIDE 145 MCG CAPSULE PO SCH (13:41)
[2019-04-26] MEDS: ZINC OXIDE PASTE 113 GM TUBE TOP SCH ×2 (13:41→22:57)
[2019-04-26] MEDS ORDERED: VANCOMYCIN INJ 750 MG in SODIUM CHLORIDE 0.9% 250 ML IV ONE (17:00)
[2019-04-26] MEDS: ESCITALOPRAM 10 MG TABLET PO SCH (21:37)
[2019-04-26] MEDS: ENOXAPARIN 30 MG/0.3 ML SYRINGE SUBCUT SCH (21:37)
[2019-04-26] MEDS: FAMOTIDINE 20 MG/2 ML VIAL IV SCH (21:37)
[2019-04-27] MEDS: HEPARIN LOCK FLUSH 500 UNIT/5 ML SYRINGE IV SCH ×2 (05:41→17:34)
[2019-04-27] MEDS: LINACLOTIDE 145 MCG CAPSULE PO SCH (09:51)
[2019-04-27] MEDS: MULTIVITAMIN (BEROCCA) TABLET PO SCH (09:52)
[2019-04-27] MEDS: CYPROHEPTADINE 4 MG TABLET PO SCH ×2 (09:52→21:10)
[2019-04-27] MEDS: SODIUM HYPOCHLORITE 0.25% IRRIG 473 ML BOTTLE TOP SCH (09:52)
[2019-04-27] MEDS: calcitrioL 0.25 MCG CAPSULE PO SCH (09:52)
[2019-04-27] MEDS: MENTHOL/ZINC OXIDE OINT 71 GM JAR TOP SCH ×2 (09:52→21:11)
[2019-04-27] MEDS: DICYCLOMINE 20 MG TABLET PO SCH ×2 (09:52→21:10)
[2019-04-27] MEDS: ZINC OXIDE PASTE 113 GM TUBE TOP SCH ×2 (09:52→21:11)
[2019-04-27] MEDS: ESCITALOPRAM 10 MG TABLET PO SCH (21:10)
[2019-04-27] MEDS: ENOXAPARIN 30 MG/0.3 ML SYRINGE SUBCUT SCH (21:10)
[2019-04-27] MEDS: FAMOTIDINE 20 MG/2 ML VIAL IV SCH (21:11)
[2019-04-28 05:55] LABS: Basophils # 0.1 10*3/uL (0.0-0.2); Basophils % 0.8 % (0.0-0.8); Eosinophils # 0.1 10*3/uL (0.0-0.87); Eosinophils % 0.9 % (0.00-10.9); Hematocrit 30.2 VOL% (35.7-47.0); Hemoglobin 9.9 GM/DL (12.0-16.0); Immature Granulocytes % 0.8 %; Immature Granulocytes Absolute 0.05 #; Lymphocytes # 2.2 10*3/uL (1.4-4.0); Lymphocytes % 34.1 % (21.3-54.2); Mean Corpuscular HGB Conc 32.8 GM/DL (32-36); Mean Corpuscular Volume 87.3 FL (87-102); Mean Platelet Volume 13.4 FL (9.6-12.0); Monocytes % 22.4 % (1.7-12.7); NRBC # 0.05 10*3/uL; Platelet Count 106 T/CUMM (130-400); Red Blood Count 3.46 MC/CUMM (3.8-5.5); Red Cell Distribution Width 19.3 % (9.3-17.3); White Blood Count 6.4 T/CUMM (4-12)
[2019-04-28 06:13] LABS: Calcium 9.1 MG/DL (8.5-10.1); Osmolality,Calculated 277.4 MOS/KG (273-304)
[2019-04-28] MEDS: HEPARIN LOCK FLUSH 500 UNIT/5 ML SYRINGE IV SCH ×2 (06:15→18:08)
[2019-04-28 06:21] LABS: Band Neutrophils 1 % (0-10); Lymphocytes 27 % (20-55); Nucleated Red Blood Cells 2 (0-5); Segmented Neutrophils 49 % (50-85); Total Cells Counted 100
[2019-04-28 06:22] LABS: Hypochromasia 1+; Microcytosis 1+; Target Cells Few
[2019-04-28 06:23] LABS: Platelet Estimate Decreased; Polychromasia Slight
[2019-04-28] MEDS ORDERED: SODIUM CHLORIDE 0.9% 1,000 ML IV PRN (09:01)
[2019-04-28] MEDS: MENTHOL/ZINC OXIDE OINT 71 GM JAR TOP SCH ×2 (09:12→21:25)
[2019-04-28] MEDS: MULTIVITAMIN (BEROCCA) TABLET PO SCH (09:12)
[2019-04-28] MEDS: ZINC OXIDE PASTE 113 GM TUBE TOP SCH ×2 (09:12→21:25)
[2019-04-28] MEDS: calcitrioL 0.25 MCG CAPSULE PO SCH (09:12)
[2019-04-28] MEDS: DICYCLOMINE 20 MG TABLET PO SCH ×2 (09:12→21:24)
[2019-04-28] MEDS: LINACLOTIDE 145 MCG CAPSULE PO SCH (09:12)
[2019-04-28] MEDS: CYPROHEPTADINE 4 MG TABLET PO SCH ×2 (09:12→21:24)
[2019-04-28] MEDS: SODIUM HYPOCHLORITE 0.25% IRRIG 473 ML BOTTLE TOP SCH (09:12)
[2019-04-28 10:46] LABS: Total Protein 5.9 G/DL (6.4-8.3)
[2019-04-28] MEDS ORDERED: IMMUNE GLOBULIN 10% 20 GM in PREMIX 1 EACH IV ONE (11:00)
[2019-04-28] MEDS: metroNIDAZOLE 500 MG TABLET PO SCH ×2 (14:55→21:24)
[2019-04-28 15:07] LABS: Immunoglobulin A (Chem) 552 MG/DL (70-400); Immunoglobulin G (Chem) 2250 MG/DL (700-1600); Immunoglobulin M (Chem) 31 MG/DL (40-230); Total Protein (Chem) 5.9 G/DL (6.4-8.3)
[2019-04-28] MEDS: ESCITALOPRAM 10 MG TABLET PO SCH (21:24)
[2019-04-28] MEDS: ENOXAPARIN 30 MG/0.3 ML SYRINGE SUBCUT SCH (21:25)
[2019-04-28] MEDS: FAMOTIDINE 20 MG/2 ML VIAL IV SCH (21:30)
[2019-04-29 08:18] LABS: Albumin (SPE) 1.3 G/DL (3.2-5.3); Albumin (SPE) Rel % 21.8 %; Alpha 1 (SPE) 0.2 G/DL (0.1-0.4); Alpha 1 (SPE) Rel % 3.4 %; Alpha 2 (SPE) 0.7 G/DL (0.4-1.0); Alpha 2 (SPE) Rel % 11.4 %; Beta (SPE) 1.9 G/DL (0.5-1.1); Gamma (SPE) 1.9 G/DL (0.7-1.7); Gamma (SPE) Rel % 31.5 %
[2019-04-29 08:34] LABS: Beta (SPE) Rel % 31.9 %
[2019-04-29 08:40] LABS: Basophils % 0.5 % (0.0-0.8); Hematocrit 29.9 VOL% (35.7-47.0); Hemoglobin 9.9 GM/DL (12.0-16.0); Immature Granulocytes % 0.2 %; Immature Granulocytes Absolute 0.02 #; Lymphocytes # 2.9 10*3/uL (1.4-4.0); Lymphocytes % 32.9 % (21.3-54.2); Mean Corpuscular HGB Conc 33.1 GM/DL (32-36); Mean Corpuscular Volume 85.7 FL (87-102); Mean Platelet Volume 12.6 FL (9.6-12.0); Monocytes % 22.3 % (1.7-12.7); NRBC # 0.02 10*3/uL; Neutrophils % 44.1 % (38.7-73.9); Platelet Count 140 T/CUMM (130-400); Red Blood Count 3.49 MC/CUMM (3.8-5.5); Red Cell Distribution Width 19.4 % (9.3-17.3); White Blood Count 8.7 T/CUMM (4-12)
[2019-04-29 09:03] LABS: Calcium 9.4 MG/DL (8.5-10.1); Osmolality,Calculated 278.5 MOS/KG (273-304)
[2019-04-29 09:04] LABS: Anisocytosis 1+; Band Neutrophils 1 % (0-10); Lymphocytes 26 % (20-55); Macrocytosis 1+; Platelet Estimate Adequate; Segmented Neutrophils 48 % (50-85); Target Cells Few; Total Cells Counted 100
[2019-04-29 09:05] LABS: Smudge Cells Few
[2019-04-29] MEDS: metroNIDAZOLE 500 MG TABLET PO SCH ×3 (09:06→20:42)
[2019-04-29] MEDS: DICYCLOMINE 20 MG TABLET PO SCH ×2 (09:06→20:42)
[2019-04-29] MEDS: calcitrioL 0.25 MCG CAPSULE PO SCH (09:06)
[2019-04-29] MEDS: MULTIVITAMIN (BEROCCA) TABLET PO SCH (09:06)
[2019-04-29] MEDS: LINACLOTIDE 145 MCG CAPSULE PO SCH (09:06)
[2019-04-29] MEDS: CYPROHEPTADINE 4 MG TABLET PO SCH ×2 (09:06→20:42)
[2019-04-29] MEDS: ZINC OXIDE PASTE 113 GM TUBE TOP SCH ×2 (09:07→20:42)
[2019-04-29] MEDS: MENTHOL/ZINC OXIDE OINT 71 GM JAR TOP SCH ×2 (09:07→20:42)
[2019-04-29] MEDS: HEPARIN LOCK FLUSH 500 UNIT/5 ML SYRINGE IV SCH ×2 (09:07→21:32)
[2019-04-29 11:05] LABS: Immuno Free Light Chain Lambda 39.03 MG/DL (0.57-2.63)
[2019-04-29] MEDS ORDERED: HEPARIN 10,000 UNIT/10 ML VIAL IV PRN (14:40)
[2019-04-29] MEDS: SODIUM HYPOCHLORITE 0.25% IRRIG 473 ML BOTTLE TOP SCH (14:51)
[2019-04-29] MEDS ORDERED: VANCOMYCIN INJ 750 MG in SODIUM CHLORIDE 0.9% 250 ML IV ONE (17:00)
[2019-04-29] MEDS: ENOXAPARIN 30 MG/0.3 ML SYRINGE SUBCUT SCH (20:41)
[2019-04-29] MEDS: ESCITALOPRAM 10 MG TABLET PO SCH (20:42)
[2019-04-29] MEDS: FAMOTIDINE 20 MG/2 ML VIAL IV SCH (21:33)
[2019-04-30 05:09] LABS: Basophils % 0.6 % (0.0-0.8); Eosinophils # 0.1 10*3/uL (0.0-0.87); Hematocrit 28.3 VOL% (35.7-47.0); Hemoglobin 9.4 GM/DL (12.0-16.0); Immature Granulocytes % 0.6 %; Immature Granulocytes Absolute 0.04 #; Lymphocytes # 2.4 10*3/uL (1.4-4.0); Lymphocytes % 32.5 % (21.3-54.2); Mean Corpuscular HGB Conc 33.2 GM/DL (32-36); Mean Corpuscular Volume 85.5 FL (87-102); Mean Platelet Volume 13.2 FL (9.6-12.0); NRBC # 0.03 10*3/uL; Neutrophils % 42.3 % (38.7-73.9); Platelet Count 119 T/CUMM (130-400); Red Blood Count 3.31 MC/CUMM (3.8-5.5); Red Cell Distribution Width 19.3 % (9.3-17.3); White Blood Count 7.2 T/CUMM (4-12)
[2019-04-30 05:29] LABS: Calcium 8.6 MG/DL (8.5-10.1); Osmolality,Calculated 272.7 MOS/KG (273-304)
[2019-04-30 05:38] LABS: Eosinophils 1 % (0-10); Hypochromasia 1+; Lymphocytes 28 % (20-55); Nucleated Red Blood Cells 1 (0-5); Platelet Estimate Decreased; Segmented Neutrophils 46 % (50-85); Total Cells Counted 100
[2019-04-30 05:39] LABS: Microcytosis 1+
[2019-04-30] MEDS: LINACLOTIDE 145 MCG CAPSULE PO SCH (09:16)
[2019-04-30] MEDS: DICYCLOMINE 20 MG TABLET PO SCH (09:16)
[2019-04-30] MEDS: calcitrioL 0.25 MCG CAPSULE PO SCH (09:16)
[2019-04-30] MEDS: CYPROHEPTADINE 4 MG TABLET PO SCH (09:16)
[2019-04-30] MEDS: metroNIDAZOLE 500 MG TABLET PO SCH ×2 (09:16→16:31)
[2019-04-30] MEDS: MULTIVITAMIN (BEROCCA) TABLET PO SCH (09:22)
[2019-04-30] MEDS: SODIUM HYPOCHLORITE 0.25% IRRIG 473 ML BOTTLE TOP SCH (09:22)
[2019-04-30] MEDS: MENTHOL/ZINC OXIDE OINT 71 GM JAR TOP SCH (09:23)
[2019-04-30] MEDS: HEPARIN LOCK FLUSH 500 UNIT/5 ML SYRINGE IV SCH (09:23)
[2019-04-30] MEDS: ZINC OXIDE PASTE 113 GM TUBE TOP SCH (09:23)
[2019-04-30] MEDS ORDERED: ALTEPLASE 2 MG VIAL INTRACATH PRN (10:30)
[2019-04-30 16:30] VITALS: BP 90/57
== END 2019-04-30 18:25 | disposition hospice, home (50) | DRG 901 ==
LOC: EDBD → EDUNIT# → N.ED 15:10 → SUATTDRO 18:47 → N.EDINP 18:47 → N.ICU 19:45 → N.2E 04-24 17:53
PROVIDERS: ADMIT Internal Medicine; ATTEND Internal Medicine